=== PATIENT | female | born 2000 | race Caucasian/White ===

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

== ENCOUNTER → 2018-06-25 | Outpatient (CLI) | payer MEDICAID ==
[~2018-06-25] MED LIST changes: +FERR325T18 PO; +IBUP-1773 PO
--- NOTE | 2018-06-25 17:23 | Diagnostic Imaging Report ---
INDICATION: Second trimester anatomic survey. TECHNIQUE: Multiple real-time grayscale images were obtained over the gravid uterus. COMPARISON: None. FINDINGS: Single intrauterine in a cephalic presentation. Grade 1 fundal placenta. No subchorionic fluid collections. Amniotic fluid is within normal limits. heart rate 143 beats per minute. There is a four-chamber heart with normal outflow tracts. There is an echogenic focus in the left ventricle. Normal appearing kidneys, bladder, stomach, intracranial contents including the ventricles and posterior fossa, three-vessel cord, spine and cord insertion. Anatomic measurements correspond to a 20 week, 1 day gestation. general anatomy is female. Biometrical measurements are as follows: Biparietal 4.72 cm, age 20 weeks 2 days. Head circumference 17.16 cm, age 19 weeks 6 days. Abdominal circumference 15.05 cm, age 20 weeks 3 days. Femur length 3.13 cm, age 19 weeks 6 days. Sonographic estimate age: 20 weeks 1 days. Sonographic estimated date of delivery: 11/11/17. Estimated Weight: 326 gm (+/- 48 gm). LMP percentile: 8%. heart rate: 143 beats per minute. number: 1 of 1. IMPRESSION: Nonspecific echogenic focus in the left ventricle. anatomic survey is otherwise unremarkable. Dictated by: Dictated on workstation # [id number]
== END ==
LOC: RAD 13:03
PROVIDERS: ATTEND Obstetrics & Gynecology
DX: Z36.89 Encounter for other specified antenatal screening (principal); Z3A.20 20 weeks gestation of pregnancy
CPT/HCPCS: 76805

== ENCOUNTER 2018-10-05 11:45 | Inpatient (IN) | payer MEDICAID ==
[2018-10-05] VITALS (21 sets, daily range): BP systolic 94–124; BP diastolic 51–75
[~2018-10-05] VITALS: Ht 152.4 cm; Wt 58.5 kg
--- NOTE | 2018-10-05 11:45 | NUR ---
MATILDA LLANOS presented to unit via ambulation, accompanied by S.O., with c/o LABOR. MATILDA LLANOS weighed, gowned, voided, and to bed. EFHM and TOCO applied, VS taken. MATILDA LLANOS oriented to bed controls, call light, TV, heat, and A/C controls.
--- OUTSIDE RECORDS SUMMARY | 2018-10-05 11:57 | XMS REPORT ---
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 Name Role Phone MARCELO DOBBS Unavailable PROBLEMS Type Condition ICD9-CM Code AMV97-UH Code Onset Dates Condition Status SNOMED Code Problem Anxiety F41.9 Active 67078219 Problem Swelling of right hand M79.89 Active 146483840 Problem Hair loss L65.9 Active 11054945 Problem Family history of autoimmune disorder Z83.2 Active 612090320 ALLERGIES No Information ENCOUNTERS Encounter Location Date Diagnosis [facility] [address] [address] Aug, Anxiety F41.9 [facility] [address] [address] May, Fever, unspecified fever cause R50.9 ; Other viral agents as the cause of diseases classified elsewhere B97.89 and Acute upper respiratory infection, unspecified J06.9 [facility] [address] [address] Mar, Lump R22.9 [facility] [address] [id number] November, Chest wall pain R07.89 and Community acquired pneumonia J18.9 [facility] [address] [address] November, Viral upper respiratory tract infection J06.9 ; Encounter for immunization Z23 ; Hives L50.9 and Insect bites, initial encounter W57.XXXA [facility] [id number] [place] [id number] Sep, Encounter for dental examination and cleaning without abnormal findings Z01.20 [place] [id number] [place] [address] Aug, Upper respiratory tract infection, unspecified type 465.9 and Allergic rhinitis J30.9 [facility] [id number] [place] [address] Aug, Rash R21 [place] [id number] [place] [address] Aug, Hair loss L65.9 ; Raynauds phenomenon without gangrene I73.00 ; Family history of autoimmune disorder Z83.2 and Swelling of right hand M79.89 [place] [id number] [place] [address] 09 Aug, 2015 Raynauds phenomenon without gangrene I73.00 ; Hair loss L65.9 ; Family history of autoimmune disorder Z83.2 and Swelling of right hand M79.89 [place] [id number] [place] [address] Aug, Raynauds phenomenon without gangrene I73.00 ; Hair loss L65.9 ; Family history of autoimmune disorder Z83.2 and Swelling of right hand M79.89 [place] [id number] [place] [address] Aug, [place] [id number] [place] [address] Dec, [place] [id number] [place] [address] Dec, [place] [id number] [place] [address] Dec, Constipation - functional 564.09 and Hair loss 704.00 [place] [id number] [place] [address] Dec, [place] [id number] [place] [address] 14 Oct, 2014 [facility] [place] [facility] [address] [id number] [place] [address] Oct, [facility] [place] [facility] [address] [id number] [place] [address] Aug, [facility] [place] [facility] [address] [facility] [id number] [place] [address] Aug, [facility] [place] [facility] [address] [id number] [place] [address] Jul, [facility] [place] [facility] [address] [id number] [place] [address] Jul, [facility] [place] [facility] [address] [facility] [id number] [place] [address] Jun, [facility] [place] [facility] [address] [facility] [id number] [place] [address] Jun, [facility] [place] [facility] [address] [facility] [id number] [place] [address] Apr, [facility] [place] [facility] [address] [facility] [id number] [place] [address] Apr, [facility] [place] [facility] [address] [facility] [id number] [place] [address] Mar, [facility] [place] [facility] [address] [facility] [id number] [place] [address] Mar, [facility] [place] [facility] [address] [id number] [address] Feb, [facility] [place] [facility] [address] [id number] [place] [address] Feb, [facility] [place] [facility] [address] [facility] [id number] [place] [address] Feb, [facility] [place] [facility] [address] [facility] [id number] [place] [address] Jul, [facility] [place] [facility] [address] [id number] [place] [address] 15 Jul, 2013 [facility] [address] [id number] [place] [address] Feb, [facility] [place] [facility] [address] [id number] [place] [address] November, [facility] [address] [id number] [place] [address] November, [facility] [place] [facility] [address] [id number] [place] [address] November, [facility] [address] [id number] [place] [address] Aug, [facility] [address] [id number] [place] [address] Jul, [facility] [address] [id number] [place] [address] Jul, [facility] [address] [id number] [place] [address] Jul, [facility] [address] [id number] [place] [address] Jul, [facility] [address] [id number] [place] [address] Oct, [facility] [address] [id number] [place] [address] 24 Sep, 2011 [facility] [place] [facility] [address] [id number] [place] [address] 20 Sep, 2011 [facility] [place] [facility] [address] [id number] [place] [address] 13 Sep, 2011 [facility] [place] [facility] [address] [id number] [place] [address] 07 Sep, 2011 [facility] [place] [facility] [address] [id number] [place] [address] Jul, [facility] [address] [facility] [id number] [place] [address] Jul, [facility] [address] [facility] [id number], [place] [address] Jul, [facility] [address] [facility] [id number] [place] [address] Jul, IMMUNIZATIONS No Known Immunizations SOCIAL HISTORY Never Assessed REASON FOR VISIT [place] PLAN OF CARE Activity Details Follow Up prn Reason:If requested by provider or patient VITAL SIGNS MEDICATIONS Unknown Medications RESULTS No Results PROCEDURES Procedure Date Ordered Result Body Site Psychotherapy, patient &/family, 30 minutes, new patient Sep 01, 2017 INSTRUCTIONS MEDICATIONS ADMINISTERED No Known Medications MEDICAL (GENERAL) HISTORY Type Description Date Medical History Depressive disorder, not elsewhere classified Medical History [facility] History [facility]
--- OUTSIDE RECORDS SUMMARY | 2018-10-05 11:58 | XMS REPORT | Continuity of Care Document ---
Author Author [facility] Address Unknown Phone Unavailable Allergies Active Description Code Type Severity Reaction Onset Reported/Identified Relationship to Patient Clinical Status Yes No Known Drug Allergies [id number] Drug Allergy Unknown N/A 11/14/2011 Medications There is no data. Problems Date Dx Coded Attending Type Code Diagnosis Diagnosed By 04/26/2010 V03.89 MENINGOCOCCAL VACCINE 04/26/2010 V04.0 IPV, POLIOMYELITIS 04/26/2010 V05.4 VARICELLA, CHICKENPOX 04/26/2010 V06.5 DT, TETANUS- DIPHTHERIA [Td] ,TDAP 04/26/2010 MERRICKE RING BARKER OPERATOR, JUAN F A V03.89 MENINGOCOCCAL VACCINE 04/26/2010 RAJOTTE RING BARKER OPERATOR, JUAN F A V04.0 IPV, POLIOMYELITIS 04/26/2010 RAJOTTE RING BARKER OPERATOR, JUAN F A V05.4 VARICELLA, CHICKENPOX 04/26/2010 RAJOTTE RING BARKER OPERATOR, JUAN F A V06.5 DT, TETANUS-DIPHTHERIA [Td] ,TDAP 04/26/2010 V03.89 MENINGOCOCCAL VACCINE 04/26/2010 V04.0 IPV, POLIOMYELITIS 04/26/2010 V05.4 VARICELLA, CHICKENPOX 04/26/2010 V06.5 DT, TETANUS- DIPHTHERIA [Td] ,TDAP 04/26/2010 V03.89 MENINGOCOCCAL VACCINE 04/26/2010 V04.0 IPV, POLIOMYELITIS 04/26/2010 V05.4 VARICELLA, CHICKENPOX 04/26/2010 V06.5 DT, TETANUS- DIPHTHERIA [Td] ,TDAP 04/26/2010 V03.89 MENINGOCOCCAL VACCINE 04/26/2010 V04.0 IPV, POLIOMYELITIS 04/26/2010 V05.4 VARICELLA, CHICKENPOX 04/26/2010 V06.5 DT, TETANUS- DIPHTHERIA [Td] ,TDAP 04/26/2010 V03.89 MENINGOCOCCAL VACCINE 04/26/2010 V04.0 IPV, POLIOMYELITIS 04/26/2010 V05.4 VARICELLA, CHICKENPOX 04/26/2010 V06.5 DT, TETANUS- DIPHTHERIA [Td] ,TDAP 04/26/2010 RAJOTTE RING BARKER OPERATOR, JUAN F A V03.89 MENINGOCOCCAL VACCINE 04/26/2010 RAJOTTE RING BARKER OPERATOR, JUAN F A V04.0 IPV, POLIOMYELITIS 04/26/2010 RAJOTTE RING BARKER OPERATOR, JUAN F A V05.4 VARICELLA, CHICKENPOX 04/26/2010 RAJOTTE RING BARKER OPERATOR, JUAN F A V06.5 DT, TETANUS-DIPHTHERIA [Td] ,TDAP 04/26/2010 MADL RING BARKER OPERATOR, JASON L V03.89 MENINGOCOCCAL VACCINE 04/26/2010 MADL RING BARKER OPERATOR, JASON L V04.0 IPV, POLIOMYELITIS 04/26/2010 MADL RING BARKER OPERATOR, JASON L V05.4 VARICELLA, CHICKENPOX 04/26/2010 MADL RING BARKER OPERATOR, JASON L V06.5 DT, TETANUS-DIPHTHERIA [Td] ,TDAP 04/26/2010 DEISI RING BARKER OPERATOR, JENNY R V03.89 MENINGOCOCCAL VACCINE 04/26/2010 DEISI RING BARKER OPERATOR, JENNY R V04.0 IPV, POLIOMYELITIS 04/26/2010 DEISI RING BARKER OPERATOR, JENNY R V05.4 VARICELLA, CHICKENPOX 04/26/2010 DEISI RING BARKER OPERATOR, JENNY R V06.5 DT, TETANUS-DIPHTHERIA [Td] ,TDAP 04/26/2010 RAJOTTE RING BARKER OPERATOR, JUAN F A V03.89 MENINGOCOCCAL VACCINE 04/26/2010 RAJOTTE RING BARKER OPERATOR, JUAN F A V04.0 IPV, POLIOMYELITIS 04/26/2010 RAJOTTE RING BARKER OPERATOR, JUAN F A V05.4 VARICELLA, CHICKENPOX 04/26/2010 RAJOTTE RING BARKER OPERATOR, JUAN F A V06.5 DT, TETANUS-DIPHTHERIA [Td] ,TDAP 04/26/2010 GILLILAND DO, WILIAN K V03.89 MENINGOCOCCAL VACCINE 04/26/2010 GILLILAND DO, WILIAN K V04.0 IPV, POLIOMYELITIS 04/26/2010 GILLILAND DO, WILIAN K V05.4 VARICELLA, CHICKENPOX 04/26/2010 GILLILAND DO, WILIAN K V06.5 DT, TETANUS-DIPHTHERIA [Td] ,TDAP 08/10/2010 381.81 EUSTACHIAN TUBE DYSFUNCTION 08/10/2010 388.70 EAR ACHE 08/10/2010 JUAN F GUARDADO APRN A 381.81 EUSTACHIAN TUBE DYSFUNCTION 08/10/2010 JUAN F GUARDADO APRN A 388.70 EAR ACHE 08/10/2010 381.81 EUSTACHIAN TUBE DYSFUNCTION 08/10/2010 388.70 EAR ACHE 08/10/2010 381.81 EUSTACHIAN TUBE DYSFUNCTION 08/10/2010 388.70 EAR ACHE 08/10/2010 381.81 EUSTACHIAN TUBE DYSFUNCTION 08/10/2010 388.70 EAR ACHE 08/10/2010 381.81 EUSTACHIAN TUBE DYSFUNCTION 08/10/2010 388.70 EAR ACHE 08/10/2010 JUAN F GUARDADO APRN A 381.81 EUSTACHIAN TUBE DYSFUNCTION 08/10/2010 JUAN F GUARDADO APRN A 388.70 EAR ACHE 08/10/2010 RICHY DENNIS APRNWNYA L 381.81 EUSTACHIAN TUBE DYSFUNCTION 08/10/2010 JEANNIE PETERS, JASON L 388.70 EAR ACHE 08/10/2010 DEISI PETERS, JENNY R 381.81 EUSTACHIAN TUBE DYSFUNCTION 08/10/2010 DEISI PETERS JENNY R 388.70 EAR ACHE 08/10/2010 JUAN F GUARDADO APRN A 381.81 EUSTACHIAN TUBE DYSFUNCTION 08/10/2010 SPENCER GUARDADO APRNYL A 388.70 EAR ACHE 08/10/2010 WILIAN GILLILAND DO 381.81 EUSTACHIAN TUBE DYSFUNCTION 08/10/2010 WILIAN GILLILAND DO 388.70 EAR ACHE 07/27/2011 V04.89 GARDASIL (HPV ) DX 07/27/2011 V20.2 WELL CHILD 07/27/2011 JUAN F GUARDADO APRN V04.89 GARDASIL (HPV) DX 07/27/2011 JUAN F GUARDADO APRN V20.2 WELL CHILD 07/27/2011 V04.89 GARDASIL (HPV ) DX 07/27/2011 V20.2 WELL CHILD 07/27/2011 V04.89 GARDASIL (HPV ) DX 07/27/2011 V20.2 WELL CHILD 07/27/2011 V04.89 GARDASIL (HPV ) DX 07/27/2011 V20.2 WELL CHILD 07/27/2011 V04.89 GARDASIL (HPV ) DX 07/27/2011 V20.2 WELL CHILD 07/27/2011 JUAN F GUARDADO APRN A V04.89 GARDASIL (HPV) DX 07/27/2011 JUAN F GUARDADO APRN A V20.2 WELL CHILD 07/27/2011 MADL RING BARKER OPERATOR, JASON L V04.89 GARDASIL (HPV) DX 07/27/2011 MADL RING BARKER OPERATOR, JASON L V20.2 WELL CHILD 07/27/2011 DEISI RING BARKER OPERATOR, JENNY R V04.89 GARDASIL (HPV) DX 07/27/2011 DEISI RING BARKER OPERATOR, JENNY R V20.2 WELL CHILD 07/27/2011 JUAN F GUARDADO APRN A V04.89 GARDASIL (HPV) DX 07/27/2011 JUAN F GUARDADO APRN A V20.2 WELL CHILD 07/27/2011 GILLILAND DOTELLOA K V04.89 GARDASIL (HPV) DX 07/27/2011 [place] DO WILIAN K V20.2 WELL CHILD 08/09/2011 780.79 MALAISE AND FATIGUE 08/09/2011 784.0 HEADACHE 08/09/2011 785.6 LYMPH NODES ENLARGEMENT 08/09/2011 JUAN F GUARDADO APRN 780.79 MALAISE AND FATIGUE 08/09/2011 JUAN F GUARDADO APRN 784.0 HEADACHE 08/09/2011 JUAN F GUARDADO APRN A 785.6 LYMPH NODES ENLARGEMENT 08/09/2011 780.79 MALAISE AND FATIGUE 08/09/2011 784.0 HEADACHE 08/09/2011 785.6 LYMPH NODES ENLARGEMENT 08/09/2011 780.79 MALAISE AND FATIGUE 08/09/2011 784.0 HEADACHE 08/09/2011 785.6 LYMPH NODES ENLARGEMENT 08/09/2011 780.79 MALAISE AND FATIGUE 08/09/2011 784.0 HEADACHE 08/09/2011 785.6 LYMPH NODES ENLARGEMENT 08/09/2011 780.79 MALAISE AND FATIGUE 08/09/2011 784.0 HEADACHE 08/09/2011 785.6 LYMPH NODES ENLARGEMENT 08/09/2011 JAVIEROTTE RING BARKER OPERATOR, JUAN F A 780.79 MALAISE AND FATIGUE 08/09/2011 RAJOTTE RING BARKER OPERATOR, JUAN F A 784.0 HEADACHE 08/09/2011 JAVIEROTTE RING BARKER OPERATOR, JUAN F A 785.6 LYMPH NODES ENLARGEMENT 08/09/2011 MADL RING BARKER OPERATOR, JASON L 780.79 MALAISE AND FATIGUE 08/09/2011 MADL RING BARKER OPERATOR, JASON L 784.0 HEADACHE 08/09/2011 MADL RING BARKER OPERATOR, JASON L 785.6 LYMPH NODES ENLARGEMENT 08/09/2011 DEISI RING BARKER OPERATOR, JENNY R 780.79 MALAISE AND FATIGUE 08/09/2011 DEISI RING BARKER OPERATOR, JENNY R 784.0 HEADACHE 08/09/2011 DEISI RING BARKER OPERATOR, JENNY R 785.6 LYMPH NODES ENLARGEMENT 08/09/2011 MERRICKE RING BARKER OPERATOR, JUAN F A 780.79 MALAISE AND FATIGUE 08/09/2011 DEBBY RING BARKER OPERATOR, JUAN F A 784.0 HEADACHE 08/09/2011 DEBBY RING BARKER OPERATOR, JUAN F A 785.6 LYMPH NODES ENLARGEMENT 08/09/2011 GILLILAND DO, WILIAN K 780.79 MALAISE AND FATIGUE 08/09/2011 GILLILAND DO, WILIAN K 784.0 HEADACHE 08/09/2011 GILLILAND DO, WILIAN K 785.6 LYMPH NODES ENLARGEMENT 09/28/2011 625.9 PELVIC PAIN 09/28/2011 626.8 DUB 09/28/2011 V25.01 CONTRACEPTION - ORAL CONTRACEPTION 09/28/2011 V25.09 CONTRACEPTIVE COUNSELING - GENERAL 09/28/2011 DEBBY FULLERN, JUAN F A 625.9 PELVIC PAIN 09/28/2011 DEBBY RING BARKER OPERATOR, JUAN F A 626.8 DUB 09/28/2011 DEBBY RING BARKER OPERATOR, JUAN F A V25.01 CONTRACEPTION - ORAL CONTRACEPTION 09/28/2011 DEBBY RING BARKER OPERATOR, JUAN F A V25.09 CONTRACEPTIVE COUNSELING - [...] V25.09 CONTRACEPTIVE COUNSELING - GENERAL 09/28/2011 DEBBY RING BARKER OPERATOR, JUAN F A 625.9 PELVIC PAIN 09/28/2011 MERRICKE RING BARKER OPERATOR, JUAN F A 626.8 DUB 09/28/2011 MERRICKE RING BARKER OPERATOR, JUAN F A V25.01 CONTRACEPTION - ORAL CONTRACEPTION 09/28/2011 MERRICKE RING BARKER OPERATOR, JUAN F A V25.09 CONTRACEPTIVE COUNSELING - GENERAL 09/28/2011 MADL RING BARKER OPERATOR, JASON L 625.9 PELVIC PAIN 09/28/2011 MADL RING BARKER OPERATOR, JASON L 626.8 DUB 09/28/2011 MADL RING BARKER OPERATOR, JASON L V25.01 CONTRACEPTION - ORAL CONTRACEPTION 09/28/2011 MADL RING BARKER OPERATOR, JASON L V25.09 CONTRACEPTIVE COUNSELING - GENERAL 09/28/2011 DEISI RING BARKER OPERATOR, JENNY R 625.9 PELVIC PAIN 09/28/2011 DEISI RING BARKER OPERATOR, JENNY R 626.8 DUB 09/28/2011 DEISI RING BARKER OPERATOR, JENNY R V25.01 CONTRACEPTION - ORAL CONTRACEPTION 09/28/2011 DEISI RING BARKER OPERATOR, JENNY R V25.09 CONTRACEPTIVE COUNSELING - GENERAL 09/28/2011 DEBBY RING BARKER OPERATOR, JUAN F A 625.9 PELVIC PAIN 09/28/2011 MERRICKE RING BARKER OPERATOR, JUAN F A 626.8 DUB 09/28/2011 MERRICKE RING BARKER OPERATOR, JUAN F A V25.01 CONTRACEPTION - ORAL CONTRACEPTION 09/28/2011 MERRICKE RING BARKER OPERATOR, JUAN F A V25.09 CONTRACEPTIVE COUNSELING - [...] 382.00 OTITIS MEDIA ACUTE SUPPURATIVE 11/17/2011 DEBBY PETESR JUAN F A 465.9 UPPER RESPIRATORY INFECTION 11/17/2011 DEBBY PETERS JUAN F A 706.1 ACNE 11/17/2011 MADMichael RING BARKER OPERATOR, JASON L 382.00 OTITIS MEDIA ACUTE SUPPURATIVE 11/17/2011 MADL RING BARKER OPERATOR, JASON L 465.9 UPPER RESPIRATORY INFECTION 11/17/2011 MADL RING BARKER OPERATOR, JASON L 706.1 ACNE 11/17/2011 DEISI RING BARKER OPERATOR, JENNY R 382.00 OTITIS MEDIA ACUTE SUPPURATIVE 11/17/2011 DEISI RING BARKER OPERATOR, JENNY R 465.9 UPPER RESPIRATORY INFECTION 11/17/2011 DEISI RING BARKER OPERATOR, JENNY R 706.1 ACNE 11/17/2011 DEBBY PETERS JUAN F A 382.00 OTITIS MEDIA ACUTE SUPPURATIVE 11/17/2011 DEBBY PETERS JUAN F A 465.9 UPPER RESPIRATORY INFECTION 11/17/2011 RAJOTTE RING BARKER OPERATOR, JUAN F A 706.1 ACNE 11/17/2011 WILIAN GILLILAND DO K 382.00 OTITIS MEDIA ACUTE SUPPURATIVE 11/17/2011 WILIAN GILLILAND DO K 465.9 UPPER RESPIRATORY INFECTION 11/17/2011 TELLO GILLILAND DOA K 706.1 ACNE 11/22/2011 Ot 623.8 NONINFLAM DIS VAGINA NEC 11/22/2011 Ot 626.8 MENSTRUAL DISORDER NEC 08/10/2012 461.0 SINUSITIS, ACUTE MAXILLARY 08/10/2012 787.02 NAUSEA ALONE 08/10/2012 MERRICKE RING BARKER OPERATOR, JUAN F A 461.0 SINUSITIS, ACUTE MAXILLARY 08/10/2012 MERRICKE RING BARKER OPERATOR, JUAN F A 787.02 NAUSEA ALONE 08/10/2012 461.0 SINUSITIS, ACUTE MAXILLARY 08/10/2012 787.02 NAUSEA ALONE 08/10/2012 461.0 SINUSITIS, ACUTE MAXILLARY 08/10/2012 787.02 NAUSEA ALONE 08/10/2012 461.0 SINUSITIS, ACUTE MAXILLARY 08/10/2012 787.02 NAUSEA ALONE 08/10/2012 461.0 SINUSITIS, ACUTE MAXILLARY 08/10/2012 787.02 NAUSEA ALONE 08/10/2012 RAJHUEYE RING BARKER OPERATOR, JUAN F A 461.0 SINUSITIS, ACUTE MAXILLARY 08/10/2012 RAJHUEYE RING BARKER OPERATOR, JUAN F A 787.02 NAUSEA ALONE 08/10/2012 MADL RING BARKER OPERATOR, JASON L 461.0 SINUSITIS, ACUTE MAXILLARY 08/10/2012 MADL RING BARKER OPERATOR, JASON L 787.02 NAUSEA ALONE 08/10/2012 DEISI RING BARKER OPERATOR, JENNY R 461.0 SINUSITIS, ACUTE MAXILLARY 08/10/2012 DEISI RING BARKER OPERATOR, JENNY R 787.02 NAUSEA ALONE 08/10/2012 MERRICKE RING BARKER OPERATOR, JUAN F A 461.0 SINUSITIS, ACUTE MAXILLARY 08/10/2012 DEBBY RING BARKER OPERATOR, JUAN F A 787.02 NAUSEA ALONE 08/10/2012 TELLO GILLILAND DOA K 461.0 SINUSITIS, ACUTE MAXILLARY 08/10/2012 TELLO GILLILAND DOA K 787.02 NAUSEA ALONE 11/27/2012 311 DEPRESSIVE DISORDER NOS 11/27/2012 311 DEPRESSIVE DISORDER NOS 11/27/2012 311 DEPRESSIVE DISORDER NOS 11/27/2012 DEBBY PETERS JUAN F A 311 DEPRESSIVE DISORDER NOS 11/27/2012 JASON DENNIS APRN L 311 DEPRESSIVE DISORDER NOS 11/27/2012 DEISI PETERS, JENNY R 311 DEPRESSIVE DISORDER NOS 11/27/2012 DEBBY PETERS, JUAN F A 311 DEPRESSIVE DISORDER NOS 11/27/2012 TELLO GILLILAND DOA K 311 DEPRESSIVE DISORDER NOS 05/14/2013 CHRISTIAN MONTERO RING BARKER OPERATOR Ot 890.0 OPEN WOUND OF HIP/THIGH 05/14/2013 CHRISTIAN MONTERO RING BARKER OPERATOR Ot E000.8 OTHER EXTERNAL CAUSE STATUS 05/14/2013 CHRISTIAN MONTERO RING BARKER OPERATOR Ot E849.0 ACCIDENT IN HOME 05/14/2013 CHRISTIAN MONTERO RING BARKER OPERATOR Ot E888.0 FALL STRIKING SHARP OBJECT 05/24/2013 [...] DEISI PETERS JENNY R 786.2 COUGH 03/19/2014 SPENCER GUARDADO APRNYL A 786.2 COUGH 03/19/2014 TELLO GILLILAND DOA K 786.2 COUGH 05/22/2014 DEISI PETERS JENNY [...] Ot L02.411 CUTANEOUS ABSCESS OF RIGHT AXILLA 01/19/2017 ANSHUL SUAREZ, NATACHA Abreu Ot O99.89 OT DISEASES AND CONDITIONS COMPL PREG/C 01/19/2017 NATACHA LANDERS MD Ot R10.2 PELVIC AND PERINEAL PAIN 01/19/2017 NATACHA LANDERS MD Ot Z3A.14 14 WEEKS GESTATION OF 01/20/2017 NATACHA LANDERS MD Ot O99.89 OT DISEASES AND CONDITIONS COMPL PREG/C 01/20/2017 NATACHA LANDERS MD Ot R10.2 PELVIC AND PERINEAL PAIN 01/20/2017 NATACHA LANDERS MD Ot Z3A.14 14 WEEKS GESTATION OF 02/23/2017 HEMA ECHOLS DO Ot Z36 ENCOUNTER FOR SCREENING OF MOT 02/23/2017 HEMA ECHOLS DO Ot Z3A.18 18 WEEKS GESTATION OF 03/01/2017 HEMA ECHOLS DO Ot Z36 ENCOUNTER FOR SCREENING OF MOT 03/01/2017 HEMA ECHOLS DO Ot Z3A.18 18 WEEKS GESTATION OF 03/07/2017 HEMA ECHOLS DO Ot Z36 ENCOUNTER FOR SCREENING OF MOT 03/07/2017 HEMA ECHOLS DO Ot Z3A.18 18 WEEKS GESTATION OF 04/19/2017 MAYCO CAIN MD, Ot B37.3 CANDIDIASIS OF VULVA AND VAGINA 04/19/2017 MAYCO CAIN MD, Ot O26.892 OT RELATED CONDITIONS, SECOND 04/19/2017 MAYCO CAIN MD, Ot O47.02 FALSE LABOR BEFORE 37 COMPLETED WEEKS OF 04/19/2017 MAYCO CAIN MD, Ot Z3A.27 27 WEEKS GESTATION OF 07/02/2017 HEMA ECHOLS DO Ot Z36 ENCOUNTER FOR SCREENING OF MOT 07/02/2017 HEMA ECHOLS DO Ot Z3A.18 18 WEEKS GESTATION OF 07/02/2017 HEMA ECHLOS DO Ot O36.5930 MATERN CARE FOR OTH OR SUSP POOR FETL GR 07/02/2017 HEMA ECHOLS DO Ot Z3A.36 36 WEEKS GESTATION OF 07/02/2017 HEMA ECHOLS DO Ot A60.9 ANOGENITAL HERPESVIRAL INFECTION, UNSPEC 07/02/2017 HEMA ECHOLS DO Ot D64.9 ANEMIA, UNSPECIFIED 07/02/2017 HEMA ECHOLS DO Ot F17.210 NICOTINE DEPENDENCE, CIGARETTES, UNCOMPL 07/02/2017 HEMA ECHOLS DO Ot F32.9 MAJOR DEPRESSIVE DISORDER, SINGLE EPISOD 07/02/2017 HEMA ECHOLS DO Ot F41.9 ANXIETY DISORDER, UNSPECIFIED 07/02/2017 HEMA ECHOLS DO Ot O26.893 OTH RELATED CONDITIONS, THIRD 07/02/2017 HEMA ECHOLS DO Ot O36.5930 MATERN CARE FOR OTH OR SUSP POOR FETL GR 07/02/2017 HEMA ECHOLS DO Ot O69.81X0 LABOR AND DEL COMP BY CORD AROUND NECK, 07/02/2017 HEMA ECHOLS DO Ot O98.313 OTH INFECT W SEXL MODE OF TRANSMISS COMP 07/02/2017 HEMA ECHOLS DO Ot O98.513 OTHER VIRAL DISEASES COMPLICATING PREGNA 07/02/2017 HEMA ECHOLS DO Ot O99.03 ANEMIA COMPLICATING THE PUERPERIUM 07/02/2017 HEMA ECHOLS DO Ot O99.333 SMOKING (TOBACCO) COMPLICATING 07/02/2017 HEMA ECHOLS DO Ot O99.343 OTH MENTAL DISORDERS COMPLICATING PREGNA 07/02/2017 HEMA ECHOLS DO Ot Z23 ENCOUNTER FOR IMMUNIZATION 07/02/2017 HEMA ECHOLS DO Ot Z37.0 SINGLE LIVE 07/02/2017 HEMA ECHOLS DO, Ot Z3A.37 37 WEEKS GESTATION OF 01/17/2018 ECHOLS DO, HEMA C Ot Z36 ENCOUNTER FOR SCREENING OF MOT 01/17/2018 LUIZA ECHOLS DOA Bayron Ot Z3A.18 18 WEEKS GESTATION OF 01/17/2018 HEMA ECHOLS DO Ot O36.5930 MATERN CARE FOR OTH OR SUSP POOR FETL GR 01/17/2018 ONESIMO NICOLE HEMA C Ot Z3A.36 36 WEEKS GESTATION OF 06/25/2018 ONESIMO NICOLE HEMA C Ot Z36 ENCOUNTER FOR SCREENING OF MOT 06/25/2018 HEMA ECHOLS DO Ot Z3A.18 18 WEEKS GESTATION OF 06/25/2018 HEMA ECHOLS DO Ot O36.5930 MATERN CARE FOR OTH OR SUSP POOR FETL GR 06/25/2018 HEMA ECHOLS DO Ot Z3A.36 36 WEEKS GESTATION OF 06/26/2018 ONESIMO NICOLE HEMA C Ot Z36.89 ENCOUNTER FOR OTHER SPECIFIED 06/26/2018 NOESIMO NICOLE HEMA C Ot Z3A.20 20 WEEKS GESTATION OF 07/12/2018 ONESIMO NICOLE HEMA C Ot Z36.89 ENCOUNTER FOR OTHER SPECIFIED 07/12/2018 ONESIMO NICOLE HEMA C Ot Z3A.20 20 WEEKS GESTATION OF 10/05/2018 ONESIMO NICOLE HEMA C Ot Z36 ENCOUNTER FOR SCREENING OF MOT 10/05/2018 HEMA ECHOLS DO C Ot Z3A.18 18 WEEKS GESTATION OF 10/05/2018 ONESIMO NICOLE HEMA Verma Ot O36.5930 MATERN CARE FOR OTH OR SUSP POOR FETL GR 10/05/2018 LUIZA ECHOLS DOA C Ot Z3A.36 36 WEEKS GESTATION OF 10/05/2018 ONESIMO NICOLE HEMA C Ot Z36.89 ENCOUNTER FOR OTHER SPECIFIED 10/05/2018 ONESIMO NICOLE HEMA C Ot Z3A.20 20 WEEKS GESTATION OF Procedures Code Description [place] [address] Audiogram (Screening) 08/23/2012 92501 Screening Test Of Visual Acuity, Quantitative, Bilateral 08/23/2012 89646 PSYCH DIAGNOSTIC EVALUATION 11/29/2012 28012 PSYTX PT&/FAMILY 45 MINUTES 12/12/2012 41049 PURE TONE HEARING TEST AIR 03/21/2013 28403 VISUAL ACUITY SCREEN 03/21/2013 89788 ROUTINE VENIPUNCTURE 03/19/2014 53850 MYCOPLASMA ANTIBODY 03/20/2014 [id number] DELIVERY OF PRODUCTS OF CONCEPTION, EXTE 06/30/2017 Results Test Result Range Gram stain microscopy - 06/06/16 14:15 GRAM STAIN RESULT COCCI NRG Bacteria identification in wound by culture - 06/06/16 14:15 Bacteria identification in wound by culture [id number] NRG QUANTITY OF GROWTH Scant Growth NRG Complete urinalysis with reflex to culture - 01/19/17 23:06 Urine color determination YELLOW NRG Urine clarity determination CLEAR NRG Urine pH measurement by test strip 7 5-9 Specific gravity of urine by test strip 1.005 1.016- 1.022 Urine protein assay by test strip, semi-quantitative NEGATIVE NEGATIVE Urine glucose detection by automated test strip NEGATIVE NEGATIVE Erythrocytes detection in urine sediment by light microscopy NEGATIVE NEGATIVE Urine ketones detection by automated test strip NEGATIVE NEGATIVE Urine nitrite detection by test strip NEGATIVE NEGATIVE Urine total bilirubin detection by test strip NEGATIVE NEGATIVE Urine urobilinogen measurement by automated test strip (mass/volume) NORMAL NORMAL Urine leukocyte esterase detection by dipstick 1+ NEGATIVE Automated urine sediment erythrocyte count by microscopy (number/high power field) NONE NRG Automated urine sediment leukocyte count by microscopy (number/high power field ) [HPF] NRG Bacteria detection in urine sediment by light microscopy NONE NRG Squamous epithelial cells detection in urine sediment by light microscopy 2-5 NRG Crystals detection in urine sediment by light microscopy PRESENT NRG Casts detection in urine sediment by light microscopy NONE NRG Mucus detection in urine sediment by light microscopy NEGATIVE NRG Complete urinalysis with reflex to culture NO NRG Amorphous sediment detection in urine sediment by light microscopy FEW NERIS URATES NRG Complete urinalysis with reflex to culture - 04/19/17 13:48 Urine color determination YELLOW NRG Urine clarity determination SLIGHTLY CLOUDY NRG Urine pH measurement by test strip 5 5-9 Specific gravity of urine by test strip 1.020 1.016- 1.022 Urine protein assay by test strip, semi-quantitative 1+ NEGATIVE Urine glucose detection by automated test strip NEGATIVE NEGATIVE Erythrocytes detection in urine sediment by light microscopy NEGATIVE NEGATIVE Urine ketones detection by automated test strip NEGATIVE NEGATIVE Urine nitrite detection by test strip NEGATIVE NEGATIVE Urine total bilirubin detection by test strip NEGATIVE NEGATIVE Urine urobilinogen measurement by automated test strip (mass/volume) NORMAL NORMAL Urine leukocyte esterase detection by dipstick 2+ NEGATIVE Automated urine sediment erythrocyte count by microscopy (number/high power field) NONE NRG Automated urine sediment leukocyte count by microscopy (number/high power field ) [HPF] NRG Bacteria detection in urine sediment by light microscopy MODERATE NRG Squamous epithelial cells detection in urine sediment by light microscopy >50 NRG Crystals detection in urine sediment by light microscopy NONE NRG Casts detection in urine sediment by light microscopy NONE NRG Mucus detection in urine sediment by light microscopy LARGE NRG Complete urinalysis with reflex to culture YES NRG Bacterial urine culture - 04/19/17 13:48 URINE CULTURE RESULTS <10,000/ML NRG Microscopic examination by wet preparation - 04/19/17 14:38 WET PREP RESULTS NO TRICHOMONAS OBSERVED NRG Complete urinalysis with reflex to culture - 06/29/17 20:00 Urine color determination YELLOW NRG Urine clarity determination CLEAR NRG Urine pH measurement by test strip 6 5-9 Specific gravity of urine by test strip 1.020 1.016- 1.022 Urine protein assay by test strip, semi-quantitative NEGATIVE NEGATIVE Urine glucose detection by automated test strip NEGATIVE NEGATIVE Erythrocytes detection in urine sediment by light microscopy NEGATIVE NEGATIVE Urine ketones detection by automated test strip NEGATIVE NEGATIVE Urine nitrite detection by test strip NEGATIVE NEGATIVE Urine total bilirubin detection by test strip NEGATIVE NEGATIVE Urine urobilinogen measurement by automated test strip (mass/volume) 1 mg/dL NORMAL Urine leukocyte esterase detection by dipstick 1+ NEGATIVE Automated urine sediment erythrocyte count by microscopy (number/high power field) NONE NRG Automated urine sediment leukocyte count by microscopy (number/high power field ) [HPF] NRG Bacteria detection in urine sediment by light microscopy MODERATE NRG Squamous epithelial cells detection in urine sediment by light microscopy 5-10 NRG Crystals detection in urine sediment by light microscopy NONE NRG Casts detection in urine sediment by light microscopy NONE NRG Mucus detection in urine sediment by light microscopy MODERATE NRG Complete urinalysis with reflex to culture NO NRG Bacterial urine culture - 06/29/17 20:00 URINE CULTURE RESULTS <10,000/ML NRG Complete blood count (CBC) with automated white blood cell (WBC) differential - 06/29/17 20:40 Blood leukocytes automated count (number/volume) 11.5 10*3/uL 4.3-11.0 Blood erythrocytes automated count (number/volume) 4.05 10*6/uL 4.35-5.85 Venous blood hemoglobin measurement (mass/volume) 12.5 g/dL 11.5-16.0 Blood hematocrit (volume fraction) 36 % 35-52 Automated erythrocyte mean corpuscular volume 90 [foz_us] 80-99 Automated erythrocyte mean corpuscular hemoglobin (mass per erythrocyte) 31 pg 25-34 Automated erythrocyte mean corpuscular hemoglobin concentration measurement ( mass/volume) 34 g/dL 32-36 Automated erythrocyte distribution width ratio 12.8 % 10.0-14.5 Automated blood platelet count (count/volume) 182 10*3/uL 130-400 Automated blood platelet mean volume measurement 13.6 [foz_us] 7.4-10.4 Automated blood neutrophils/100 leukocytes 65 % 42-75 Automated blood lymphocytes/100 leukocytes 24 % 12-44 Blood monocytes/100 leukocytes 9 % 0-12 Automated blood eosinophils/100 leukocytes 2 % 0-10 Automated blood basophils/100 leukocytes 1 % 0-10 Blood neutrophils automated count (number/volume) 7.4 10*3 1.8-7.8 Blood lymphocytes automated count (number/volume) 2.8 10*3 1.0-4.0 Blood monocytes automated count (number/volume) 1.1 10*3 0.0-1.0 Automated eosinophil count 0.2 10*3/uL 0.0-0.3 Automated blood basophil count (count/volume) 0.1 10*3/uL 0.0-0.1 Blood type T Indirect antibody screen panel - 06/29/17 20:40 ABO+Rh group OP NRG Transfusion band number [id number] NR Blood group antibody screen NEGATIVE NR Complete blood count (CBC) with automated white blood cell (WBC) differential - 07/01/17 07:15 Blood leukocytes automated count (number/volume) 13.3 10*3/uL 4.3-11.0 Blood erythrocytes automated count (number/volume) 3.31 10*6/uL 4.35-5.85 Venous blood hemoglobin measurement (mass/volume) 10.1 g/dL 11.5-16.0 Blood hematocrit (volume fraction) 30 % 35-52 Automated erythrocyte mean corpuscular volume 91 [foz_us] 80-99 Automated erythrocyte mean corpuscular hemoglobin (mass per erythrocyte) 31 pg 25-34 Automated erythrocyte mean corpuscular hemoglobin concentration measurement ( mass/volume) 34 g/dL 32-36 Automated erythrocyte distribution width ratio 12.5 % 10.0-14.5 Automated blood platelet count (count/volume) 133 10*3/uL 130-400 Automated blood platelet mean volume measurement 13.6 [foz_us] 7.4-10.4 Automated blood neutrophils/100 leukocytes 69 % 42-75 Automated blood lymphocytes/100 leukocytes 21 % 12-44 Blood monocytes/100 leukocytes 8 % 0-12 Automated blood eosinophils/100 leukocytes 2 % 0-10 Automated blood basophils/100 leukocytes 1 % 0-10 Blood neutrophils automated count (number/volume) 9.2 10*3 1.8-7.8 Blood lymphocytes automated count (number/volume) 2.8 10*3 1.0-4.0 Blood monocytes automated count (number/volume) 1.0 10*3 0.0-1.0 Automated eosinophil count 0.2 10*3/uL 0.0-0.3 Automated blood basophil count (count/volume) 0.1 10*3/uL 0.0-0.1 Encounters ACCT No. Visit Date/Time Discharge Status Pt. Type Provider Facility Loc./Unit Complaint [id number] 08/18/2014 13:43:00 08/18/2014 23:59:59 CLS Outpatient TALAT NICOLEWILIAN Areli [id number] 06/23/2014 09:09:00 06/23/2014 23:59:59 CLS Outpatient JUAN F GUARDADO APRN [id number] 05/22/2014 12:36:00 05/22/2014 23:59:59 CLS Outpatient JENNY LIPSCOMB APRN [id number] 03/19/2014 11:23:00 03/19/2014 23:59:59 CLS Outpatient JASON DENNIS APRN [id number] 08/07/2013 13:36:00 08/07/2013 23:59:59 CLS Outpatient JUAN F GUARDADO APRN [id number] 08/30/2012 09:27:00 08/30/2012 23:59:59 CLS Outpatient [id number] 08/23/2012 09:36:00 08/23/2012 23:59:59 CLS Outpatient JUAN F GUARDADO APRN [id number] 08/10/2012 13:37:00 08/10/2012 23:59:59 CLS Outpatient [id number] 03/19/2013 15:01:00 Document Registration [id number] 12/11/2012 16:03:00 Document Registration [id number] 11/27/2012 10:44:00 Document Registration [id number] 08/23/2012 14:56:30 RECURRING [id number] 06/25/2018 13:03:00 06/25/2018 23:59:59 CLS Outpatient ONESIMO NICOLE HEMA C [facility] RAD 16 WEEKS GESTATION OF [id number] 06/29/2017 20:06:00 07/02/2017 16:10:00 DIS Inpatient HEMA ECHOLS DO [facility] LDRP INDUCTION [id number] 06/26/2017 15:46:00 06/26/2017 23:59:59 CLS Outpatient HEMA ECHOLS DO [facility] RAD O36.5930 SMALL FOR GESTATIONAL FETUS [id number] 04/19/2017 13:41:00 04/19/2017 15:10:00 DIS Outpatient MAYCO CAIN MD [facility] WSo CRAMPING,MUCUS DISCHARGE [id number] 02/23/2017 09:47:00 02/23/2017 23:59:59 CLS Outpatient HEMA ECHOLS DO [facility] RAD SURVEY [id number] 01/19/2017 22:50:00 01/19/2017 23:45:00 DIS Emergency NATACHA LANDERS MD [facility] ER 14 W /POST COITAL ABD PAIN [id number] 06/06/2016 13:56:00 06/06/2016 14:27:00 DIS Emergency 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 MONTERO RING BARKER 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
[2018-10-05] MEDS ORDERED: D5 LR IV SOLUTION 1,000 ML IV ONE (12:09)
[2018-10-05] MEDS ORDERED: AMPICILLIN FOR IV USE 2,000 MG in WATER (STERILE) FOR INJECTION 14.8 ML IV SCH (12:20)
[2018-10-05] MEDS: D5 LR IV SOLUTION 1,000 ML IV SCH ×2 (12:20→20:30)
[2018-10-05] MEDS ORDERED: AMPICILLIN FOR IV USE 2,000 MG VIAL ONE (12:25)
[2018-10-05] MEDS ORDERED: WATER (STERILE) FOR INJECTION 20 ML ONE (12:25)
[2018-10-05] MEDS ORDERED: MINERAL OIL CONCENTRATE 99.9% 15 ML UDC TOP PRN (12:30)
[2018-10-05 12:31] LABS: BASOPHILS % (AUTO) 0 % (0-10); EOSINOPHILS % (AUTO) 0 % (0-10); HEMATOCRIT 31 % (35-52); HEMOGLOBIN 10.6 G/DL (11.5-16.0); LYMPHOCYTES # (AUTO) 1.8 X 10^3 (1.0-4.0); LYMPHOCYTES % (AUTO) 9 % (12-44); MEAN CORPUSCULAR HEMOGLOBIN 29 PG (25-34); MEAN CORPUSCULAR HGB CONC 34 G/DL (32-36); MEAN CORPUSCULAR VOLUME 86 FL (80-99); MEAN PLATELET VOLUME 12.1 FL (7.4-10.4); MONOCYTES # (AUTO) 0.5 X 10^3 (0.0-1.0); MONOCYTES % (AUTO) 3 % (0-12); NEUTROPHILS % (AUTO) 88 % (42-75); PLATELET COUNT 251 10^3/uL (130-400); RED CELL DISTRIBUTION WIDTH 13.6 % (10.0-14.5); WHITE BLOOD COUNT 19.4 10^3/uL (4.3-11.0)
[2018-10-05 13:06] LABS: CLARITY,URINE SLIGHTLY CLOUDY; COLOR,URINE AMBER; GLUCOSE, URINE (UA) NEGATIVE (NEGATIVE); KETONES,URINE 2+ (NEGATIVE); LEUKOCYTE ESTERASE ,URINE 1+ (NEGATIVE); NITRITE,URINE NEGATIVE (NEGATIVE); PH,URINE 5 (5-9); PROTEIN,URINE 2+ (NEGATIVE); UROBILINOGEN,URINE 1 MG/DL (NORMAL)
[2018-10-05 13:09] LABS: BAND NEUTROPHILS 3 %; BASOPHILS % (MANUAL) 0 %; EOSINOPHILS % (MANUAL) 0 %; LYMPHOCYTES % (MANUAL) 13 %; MONOCYTES % (MANUAL) 2 %; MYELOCYTES % 2 %; NEUTROPHILS % (MANUAL) 80 %; RBC MORPH NORMAL
[2018-10-05 13:15] LABS: BILIRUBIN,URINE 1+ (NEGATIVE)
[2018-10-05 13:16] LABS: BACTERIA,URINE FEW /HPF; RBC,URINE RARE /HPF; SQUAMOUS EPITHELIAL CELL,UR 25-50 /HPF
[2018-10-05] MEDS ORDERED: FLU QUADRIvalent (5+ YOA) 2018-2019 (AFLURIA) 0.5 ML IM ONE (14:00)
[2018-10-05] MEDS ORDERED: CATHETER FLUSH 10 ML SYR IV SCH (14:00)
[2018-10-05] MEDS: AMPICILLIN FOR IV USE 1,000 MG in WATER (STERILE) FOR INJECTION 7.4 ML IV SCH ×2 (16:35→20:29)
--- NOTE | 2018-10-05 17:15 | NUR ---
Dr. Summers notified of WBC, UA results. No new orders rec'd at this time
--- NOTE | 2018-10-05 17:24 | Physician Progress Note ---
Progress Note Assessment/Plan Date Seen by Provider: Oct 05, 2018 Time Seen by Provider: 17:20 Events since last exam Has received 2 doses of Ampicillin. GBS pending. Received 2 doses of betamethasone. She has continued to contract regularly about every 2-3 minutes with the strength increasing. well being reassuring. category I tracing ROM with clear fluid Anticipate 10/05/18 10/05/18 12:00 13:50 Temp 98.0 Pulse 123 90 Resp 18 18 B/P (MAP) 111/67 (82) 112/72 (85) Pulse Ox 98 O2 Delivery Room Air Room Air Laboratory Tests Test 10/05/18 12:20 Range/Units White Blood Count 19.4 H 4.3-11.0 10^3/uL Red Blood Count 3.62 L 4.35-5.85 10^6/uL Hemoglobin 10.6 L 11.5-16.0 G/DL Hematocrit 31 L 35-52 % Mean Corpuscular Volume 86 80-99 FL Mean Corpuscular Hemoglobin 29 25-34 PG Mean Corpuscular Hemoglobin Concent 34 32-36 G/DL Red Cell Distribution Width 13.6 10.0-14.5 % Platelet Count 251 130-400 10^3/uL Mean Platelet Volume 12.1 H 7.4-10.4 FL Neutrophils (%) (Auto) 88 H 42-75 % Lymphocytes (%) (Auto) 9 L 12-44 % Monocytes (%) (Auto) 3 0-12 % Eosinophils (%) (Auto) 0 0-10 % Basophils (%) (Auto) 0 0-10 % Neutrophils # (Auto) 17.0 H 1.8-7.8 X 10^3 Lymphocytes # (Auto) 1.8 1.0-4.0 X 10^3 Monocytes # (Auto) 0.5 0.0-1.0 X 10^3 Eosinophils # (Auto) 0.0 0.0-0.3 10^3/uL Basophils # (Auto) 0.0 0.0-0.1 10^3/uL Neutrophils % (Manual) 80 % Lymphocytes % (Manual) 13 % Monocytes % (Manual) 2 % Eosinophils % (Manual) 0 % Basophils % (Manual) 0 % Myelocytes % 2 % Band Neutrophils 3 % Blood Morphology Comment NORMAL Urine Color DAYAN H Urine Clarity SLIGHTLY CLOUDY Urine pH 5 5-9 Urine Specific [place] 1.025 H 1.016-1.022 Urine Protein 2+ H NEGATIVE Urine Glucose (UA) NEGATIVE NEGATIVE Urine Ketones 2+ H NEGATIVE Urine Nitrite NEGATIVE NEGATIVE Urine Bilirubin 1+ H NEGATIVE Urine Urobilinogen 1 NORMAL MG/DL Urine Leukocyte Esterase 1+ H NEGATIVE Urine RBC (Auto) 4+ H NEGATIVE Urine RBC RARE /HPF Urine WBC 2-5 /HPF Urine Squamous Epithelial Cells 25-50 H /HPF Urine Crystals NONE /LPF Urine Bacteria FEW H /HPF Urine Casts NONE /LPF Urine Mucus MODERATE H /LPF Urine Culture Indicated CULTURE PENDING 35 4/7 weeks labor Severe IUGR (1%ile). Testing has been reassuring at [facility] in [place] Assessment/Plan anticipate epidural or pain med IV prn Vitals Last set of Vitals Signs Vital Signs Date Time Temp Pulse Resp B/P (MAP) Pulse Ox O2 Delivery O2 Flow Rate FiO2 10/05/18 13:50 90 18 112/72 (85) Room Air 10/05/18 12:00 98.0 98 Labs Laboratory Tests 10/05/18 12:20: White Blood Count 19.4H, Red Blood Count 3.62L, Hemoglobin 10.6L, Hematocrit 31L , Mean Corpuscular Volume 86, Mean Corpuscular Hemoglobin 29, Mean Corpuscular Hemoglobin Concent 34, Red Cell Distribution Width 13.6, Platelet Count 251, Mean Platelet Volume 12.1H, Neutrophils (%) (Auto) 88H, Lymphocytes (%) (Auto) 9L, Monocytes (%) (Auto) 3, Eosinophils (%) (Auto) 0, Basophils (%) (Auto) 0, Neutrophils # (Auto) 17.0H, Lymphocytes # (Auto) 1.8, Monocytes # (Auto) 0.5, Eosinophils # (Auto) 0.0, Basophils # (Auto) 0.0, Neutrophils % (Manual) 80, Lymphocytes % (Manual) 13, Monocytes % (Manual) 2, Eosinophils % (Manual) 0, Basophils % (Manual) 0, Myelocytes % 2, Band Neutrophils 3, Blood Morphology Comment NORMAL, Urine Color AMBERH, Urine Clarity SLIGHTLY CLOUDY, Urine pH 5, Urine Specific [place] 1.025H, Urine Protein 2+H, Urine Glucose (UA) NEGATIVE, Urine Ketones 2+H, Urine Nitrite NEGATIVE, Urine Bilirubin 1+H, Urine Urobilinogen 1, Urine Leukocyte Esterase 1+H, Urine RBC (Auto) 4+H, Urine RBC RARE, Urine WBC 2-5, Urine Squamous Epithelial Cells 25-50H, Urine Crystals NONE , Urine Bacteria FEWH, Urine Casts NONE, Urine Mucus MODERATEH, Urine Culture Indicated CULTURE PENDING Clinical Quality Measures DVT/VTE Risk/Contraindication: Risk Factor Score Per Nursin RFS Level Per Nursing on Admit: 2=Moderate HEMA ECHOLS DO Oct 05, 2018 17:23
[2018-10-05] MEDS ORDERED: PROMETHAZINE INJ 25 MG/ML (PHENERGAN) AMP IVP PRN (17:30)
[2018-10-05] MEDS ORDERED: BUTORPHANOL INJ 2 MG/ML (STADOL) VIAL IV ONE (17:30)
[2018-10-05] MEDS ORDERED: OXYTOCIN/NORMAL SALINE 500 ML IV SCH (19:38)
[2018-10-05] MEDS ORDERED: OXYTOCIN/NORMAL SALINE 500 ML IV ONE (19:49)
[2018-10-05] MEDS ORDERED: LIDOCAINE/EPI 2% 1:200,00 (XYLOCAINE) 10 ML VIAL ONE (21:00)
[2018-10-05] MEDS ORDERED: BUTORPHANOL INJ 2 MG/ML (STADOL) VIAL ONE (23:04)
[2018-10-05] MEDS ORDERED: SUFENTA 0.6MCG/ML BUPIVA 0.125 100 ML ONE (23:14)
[2018-10-05] MEDS ORDERED: BUPIVACAINE 0.25% 30 ML (SENSORCAINE) VIAL ONE (23:52)
[2018-10-05] MEDS ORDERED: fentaNYL INJECTION 100 MCG/2 ML AMP ONE (23:52)
[2018-10-05] MEDS ORDERED: LIDOCAINE PF 2% 5 ML (XYLOCAINE) VIAL ONE (23:52)
--- NOTE | 2018-10-05 23:58 | NUR ---
Sandra Valero CRNA and VIN here for epidural placement. Procedure explained, consent reviewed and signed by anesthesia. Questions answered to patient's satisfaction. Time out taken to verify correct patient/procedure. 0000 Patient up to side of bed, assisted into sitting position. Betadine prep done x3 and sterile drape applied. 0010 Local done, see anesthesia record. Test dose given, see anesthesia record for drug and dosage. 0014 Epidural catheter secured in place. Epidural placement complete. Assisted back into bed, monitors adjusted at 0022. Epidural dosed, see anesthesia record. Epidural of Sufenta/Bupvicaine @ 12cc/hr stated per pump. Patient tolerated procedure well.
[2018-10-06] VITALS (35 sets, daily range): BP systolic 91–115; BP diastolic 51–75
[2018-10-06] MEDS: AMPICILLIN FOR IV USE 1,000 MG in WATER (STERILE) FOR INJECTION 7.4 ML IV SCH (00:34)
[2018-10-06] MEDS ORDERED: LACTATED RINGERS 1,000 ML IV SCH (00:35)
--- NOTE | 2018-10-06 00:41 | NUR ---
Epidural Rate initially started at 12ml/hr. This RN called anesthesia back at 0041 due to pt c/o chest getting heavy and neck feeling numb. Sandra Valero CRNA decreased rate to 9ml/hr.
[2018-10-06] MEDS ORDERED: METOCLOPRAMIDE INJ 10 MG/2 ML (REGLAN) IV PRN (00:45)
[2018-10-06] MEDS ORDERED: ONDANSETRON 4 MG/2 ML (SDV) Z0FRAN IV PRN (00:45)
[2018-10-06] MEDS ORDERED: EPIDURAL (SUFENTA 0.6MCG/ML BUPIVA 0.125%) 100 ML BAG EPI PRN (00:45)
[2018-10-06] MEDS ORDERED: diphenhydrAMINE 50 MG/ML INJ (BENADRYL) IV PRN (00:45)
[2018-10-06] MEDS ORDERED: NALOXONE 0.4 MG/ML 1 ML (NARCAN) VIAL IV PRN ×2 (00:45)
[2018-10-06] MEDS ORDERED: OXYTOCIN/NORMAL SALINE 500 ML IV SCH (03:29)
--- NOTE | 2018-10-06 03:29 | OB Labor & Delivery Record ---
Vag Delivery Note Vag Delivery Note Date of Delivery: 10/06/18 Preoperative Diagnosis: Franny Jain is a 17 /Para 2/1 , Gestational Age 35 5/7 weeks, labor, GBS unknown, severe IUGR Postoperative Diagnosis: Same Surgeon: HEMA ECHOLS Anesthesia: epidural Delivery Type: vaginal Findings: Viable female infant, apgars 9/9, weight 2100 grams Lacerations: none Intact placenta with 3 vessel cord. Nuchal cord x 1 delivered through, no body cord or shoulder dystocia Estimated Blood Loss: 100 ml Complications: None Condition: Stable Description of Procedure: The patient is a 17 year old female who presented to the office y10/04 for routine visit and complained of low bakc pain, she was noted to be 4 cm dilated and denny irregularly, not in labor. she has been followed in [place] at [facility] for growth restriction discovered due to US for echogenic focus in the heart. Growth has been progressive but has always been 1-5%ile. She was given betamethasone x 1 and then returned 10/05 for repeat betamethasone. She stated her contractions were getting stronger and she was noted to be denny every 2-3 minutes and her cervix was now 5 cm and bulging membranes. She was admitted and informed consent was obtained. Her labor course was remarkable for several doses of IV ampicillin (Her GBS was done on 10/04 and had not been resulted). ROM and augmentation with pitocin. She progressed to complete dilatation and began to push. She was then set up for delivery. The 's head was delivered atraumatically in the GABI position. The shoulders and remainder of the infant's body were then delivered without difficulty. There was a loose nuchal cord delivered through. Upon delivery, the head was held below the level of the perineum and the mouth and nares were bulb suctioned. The cord was doubly clamped and cut and the infant was handed off to the pediatric staff. An intact placenta with 3-vessel cord delivered via [place] and there was found to be minimal bleeding.~ Vigorous fundal massage was performed and the fundus was found to be firm. IV oxytocin was given. Examination of the vagina and perineum revealed no lacerations. Following the delivery, sponge, instrument and needle counts were correct. Mom and baby were both in stable condition in the labor suite. Vitals - Labs Vital Signs - I&O Vital Signs Date Time Temp Pulse Resp B/P (MAP) Pulse Ox O2 Delivery O2 Flow Rate FiO2 10/06/18 00:35 98.3 108 18 98/53 (68) 97 Room Air 10/06/18 00:30 97 18 92/52 (65) 97 Room Air 10/06/18 00:27 107 18 96/54 (68) 97 Room Air 10/06/18 00:24 104 18 104/63 (77) 99 Room Air 10/06/18 00:21 126 18 109/68 (82) 99 Room Air 10/06/18 00:17 96 18 109/71 (84) 99 Room Air 10/06/18 00:16 96 18 109/62 (78) 99 Room Air 10/06/18 00:13 100 18 107/66 (80) 99 Room Air 10/06/18 00:00 110 18 115/70 (85) 97 Room Air 10/05/18 23:45 105 18 115/72 (86) Room Air 10/05/18 23:30 105 18 111/67 (82) Room Air 10/05/18 23:15 97 18 94/52 (66) Room Air 10/05/18 23:00 99.0 103 18 103/64 (77) Room Air 10/05/18 22:45 88 18 108/57 (74) Room Air 10/05/18 22:30 93 18 107/64 (78) Room Air 10/05/18 22:15 95 18 114/75 (88) Room Air 10/05/18 22:00 97 18 110/68 (82) Room Air 10/05/18 21:45 99.0 94 18 112/55 (74) Room Air 10/05/18 21:30 96 18 94/54 (67) Room Air 10/05/18 21:15 95 18 97/51 (66) Room Air 10/05/18 21:00 100 18 99/54 (69) Room Air 10/05/18 20:45 100 18 96/54 (68) Room Air 10/05/18 20:30 109 18 109/64 (79) Room Air 10/05/18 20:15 107 18 113/67 (82) Room Air 10/05/18 20:00 98.5 109 18 117/71 (86) Room Air 10/05/18 19:30 98.8 86 16 124/71 (88) Room Air 10/05/18 18:55 98.7 85 18 111/64 (80) Room Air 10/05/18 17:45 98.5 10/05/18 16:40 98.7 92 18 108/61 (77) Room Air 10/05/18 13:50 90 18 112/72 (85) Room Air 10/05/18 12:00 98.0 123 18 111/67 (82) 98 Room Air I & O 10/06/18 07:00 Intake Total 2014.8 ml Balance 2014.8 ml Labs Laboratory Tests 10/05/18 12:20: White Blood Count 19.4H, Red Blood Count 3.62L, Hemoglobin 10.6L, Hematocrit 31L , Mean Corpuscular Volume 86, Mean Corpuscular Hemoglobin 29, Mean Corpuscular Hemoglobin Concent 34, Red Cell Distribution Width 13.6, Platelet Count 251, Mean Platelet Volume 12.1H, Neutrophils (%) (Auto) 88H, Lymphocytes (%) (Auto) 9L, Monocytes (%) (Auto) 3, Eosinophils (%) (Auto) 0, Basophils (%) (Auto) 0, Neutrophils # (Auto) 17.0H, Lymphocytes # (Auto) 1.8, Monocytes # (Auto) 0.5, Eosinophils # (Auto) 0.0, Basophils # (Auto) 0.0, Neutrophils % (Manual) 80, Lymphocytes % (Manual) 13, Monocytes % (Manual) 2, Eosinophils % (Manual) 0, Basophils % (Manual) 0, Myelocytes % 2, Band Neutrophils 3, Blood Morphology Comment NORMAL, Urine Color AMBERH, Urine Clarity SLIGHTLY CLOUDY, Urine pH 5, Urine Specific [place] 1.025H, Urine Protein 2+H, Urine Glucose (UA) NEGATIVE, Urine Ketones 2+H, Urine Nitrite NEGATIVE, Urine Bilirubin 1+H, Urine Urobilinogen 1, Urine Leukocyte Esterase 1+H, Urine RBC (Auto) 4+H, Urine RBC RARE, Urine WBC 2-5, Urine Squamous Epithelial Cells 25-50H, Urine Crystals NONE , Urine Bacteria FEWH, Urine Casts NONE, Urine Mucus MODERATEH, Urine Culture Indicated CULTURE PENDING HEMA ECHOLS DO Oct 06, 2018 03:29
[2018-10-06] MEDS ORDERED: BENZOCAINE/MENTHOL (DERMOPLAST) 56 ML CAN TP PRN ×2 (03:30→13:15)
[2018-10-06] MEDS ORDERED: WITCH HAZEL(TUCKS) 40 EA JAR TOP PRN (03:30)
[2018-10-06] MEDS ORDERED: DIBUCAINE (NUPERCAINAL) 1% OINT 30 GM TOP PRN (03:30)
[2018-10-06] MEDS ORDERED: MEASLES,MUMPS,RUBELLA 1 EA INJ SQ ONE (03:30)
[2018-10-06] MEDS ORDERED: TETANUS,DIPTH,PERTUSS P/F (BOOSTRIX) 0.5 ML VIAL IM ONE (03:30)
[2018-10-06] MEDS ORDERED: ACETAMINOPHEN 500 MG TAB (TYLENOL) ONE (04:18)
[2018-10-06] MEDS: ACETAMINOPHEN 500 MG TAB (TYLENOL) PO SCH ×4 (04:20→21:47)
[2018-10-06] MEDS: IBUPROFEN 600 MG (MOTRIN) TAB PO SCH ×4 (04:20→21:46)
--- NOTE | 2018-10-06 05:30 | NUR ---
Pt. out of recovery. Ambulating in room. Pt transferred to room 309 via ambulation, accompanied by SO, , and staff. All personal belongings in pt possession. Pt oriented to room, room service, and call light within reach. SO and at bedside. fresh ice water given. plan of care discussed. No questions or concerns voiced at this time.
[2018-10-06] MEDS ORDERED: CATHETER FLUSH 10 ML SYR IV SCH (06:00)
[2018-10-06] MEDS: FERROUS SULF 325 MG (IRON) TAB PO SCH (11:22)
[2018-10-06] MEDS: DOCUSATE SODIUM 100 MG (COLACE) CAP PO SCH ×2 (11:22→21:47)
[2018-10-06] MEDS ORDERED: oxyCODONE/APAP 5/325MG (PERCOCET 5) TABLET ONE (13:29)
--- NOTE | 2018-10-06 14:46 | Anesthesia-Regional Post-Op ---
Regional Patient Condition Mental Status: Alert, Oriented x3 Circulation: Same as Pre-Op Headache: Absent Sensation: Full Recovery Motor Block: Absent Post Op Complications Complications None Follow Up Care/Instructions Patient Instructions None needed. Anesthesia/Patient Condition Patient is doing well, no complaints, stable vital signs, no apparent adverse anesthesia problems. No complications reported per nursing. SEN CORONADO CRNA Oct 06, 2018 14:46
--- NOTE | 2018-10-06 21:40 | NUR ---
PT. states that her stomach is feeling better and is requesting her pain meds at this time.
--- NOTE | 2018-10-07 00:34 | NUR ---
In to check on pt. Pt. states that they are doing well. Was getting infant out of crib at this time. No questions or concerns.
[2018-10-07] MEDS: IBUPROFEN 600 MG (MOTRIN) TAB PO SCH ×4 (03:56→23:38)
[2018-10-07 03:57] VITALS: BP 94/61
[2018-10-07 05:57] LABS: BASOPHILS # (AUTO) 0.2 10^3/uL (0.0-0.1); BASOPHILS % (AUTO) 1 % (0-10); EOSINOPHILS # (AUTO) 0.1 10^3/uL (0.0-0.3); EOSINOPHILS % (AUTO) 1 % (0-10); HEMATOCRIT 28 % (35-52); HEMOGLOBIN 9.2 G/DL (11.5-16.0); LYMPHOCYTES # (AUTO) 4.8 X 10^3 (1.0-4.0); LYMPHOCYTES % (AUTO) 29 % (12-44); MEAN CORPUSCULAR HEMOGLOBIN 29 PG (25-34); MEAN CORPUSCULAR HGB CONC 33 G/DL (32-36); MEAN CORPUSCULAR VOLUME 90 FL (80-99); MEAN PLATELET VOLUME 12.1 FL (7.4-10.4); MONOCYTES # (AUTO) 1.2 X 10^3 (0.0-1.0); MONOCYTES % (AUTO) 7 % (0-12); NEUTROPHILS % (AUTO) 61 % (42-75); PLATELET COUNT 179 10^3/uL (130-400); RED CELL DISTRIBUTION WIDTH 13.5 % (10.0-14.5); WHITE BLOOD COUNT 16.3 10^3/uL (4.3-11.0)
--- NOTE | 2018-10-07 10:35 | Postpartum Progress Note ---
Note Note Day # 1 s/p Subjective: Patient is without complaints. Ambulating, voiding. Tolerating a regular diet without nausea or vomiting. Normal lochia. Pain is well controlled with oral pain medications. [] feeding. [] Objective: 10/07/18 10/07/18 10/07/18 03:57 11:10 14:40 Temp 98.8 98.2 98.2 Pulse 78 87 89 Resp 20 20 16 B/P (MAP) 94/61 (72) 109/75 (86) 99/61 (74) Pulse Ox 98 O2 Delivery Room Air Room Air Room Air Laboratory Tests Test 10/07/18 05:50 Range/Units White Blood Count 16.3 H 4.3-11.0 10^3/uL Red Blood Count 3.14 L 4.35-5.85 10^6/uL Hemoglobin 9.2 L 11.5-16.0 G/DL Hematocrit 28 L 35-52 % Mean Corpuscular Volume 90 80-99 FL Mean Corpuscular Hemoglobin 29 25-34 PG Mean Corpuscular Hemoglobin Concent 33 32-36 G/DL Red Cell Distribution Width 13.5 10.0-14.5 % Platelet Count 179 130-400 10^3/uL Mean Platelet Volume 12.1 H 7.4-10.4 FL Neutrophils (%) (Auto) 61 42-75 % Lymphocytes (%) (Auto) 29 12-44 % Monocytes (%) (Auto) 7 0-12 % Eosinophils (%) (Auto) 1 0-10 % Basophils (%) (Auto) 1 0-10 % Neutrophils # (Auto) 10.0 H 1.8-7.8 X 10^3 Lymphocytes # (Auto) 4.8 H 1.0-4.0 X 10^3 Monocytes # (Auto) 1.2 H 0.0-1.0 X 10^3 Eosinophils # (Auto) 0.1 0.0-0.3 10^3/uL Basophils # (Auto) 0.2 H 0.0-0.1 10^3/uL Physical Exam: General - Alert and oriented, no apparent distress Abdomen - Soft, appropriately tender to palpation, non-distended, fundus firm at umbilicus Extremities - no edema, negative Blade's bilaterally Assessment: 1. post- day # 1, status post spontaneous vaginal delivery. Recovering well, hemodynamically stable Plan: Routine care. Encourage breast feeding. Encourage ambulation. Ferrous sulfate supplementation. Plan for discharge tomorrow Vitals - Labs Vital Signs - I&O Vital Signs Date Time Temp Pulse Resp B/P (MAP) Pulse Ox O2 Delivery O2 Flow Rate FiO2 10/07/18 03:57 98.8 78 20 94/61 (72) 98 Room Air 10/06/18 20:36 97.4 79 20 115/75 (88) 97 Room Air Labs Laboratory Tests 10/07/18 05:50: White Blood Count 16.3H, Red Blood Count 3.14L, Hemoglobin 9.2L, Hematocrit 28L , Mean Corpuscular Volume 90, Mean Corpuscular Hemoglobin 29, Mean Corpuscular Hemoglobin Concent 33, Red Cell Distribution Width 13.5, Platelet Count 179, Mean Platelet Volume 12.1H, Neutrophils (%) (Auto) 61, Lymphocytes (%) (Auto) 29 , Monocytes (%) (Auto) 7, Eosinophils (%) (Auto) 1, Basophils (%) (Auto) 1, Neutrophils # (Auto) 10.0H, Lymphocytes # (Auto) 4.8H, Monocytes # (Auto) 1.2H, Eosinophils # (Auto) 0.1, Basophils # (Auto) 0.2H Microbiology 10/05/18 Urine Culture - Final, Complete 3 or more isolates HEMA ECHOLS DO Oct 07, 2018 10:35
[2018-10-07 11:10] VITALS: BP 109/75
[2018-10-07] MEDS: CEPHALEXIN 250 MG (KEFLEX) CAP PO SCH ×2 (11:10→20:00)
[2018-10-07] MEDS: FERROUS SULF 325 MG (IRON) TAB PO SCH (11:10)
[2018-10-07] MEDS: DOCUSATE SODIUM 100 MG (COLACE) CAP PO SCH ×2 (11:10→20:00)
[2018-10-07 14:40] VITALS: BP 99/61
[2018-10-07 19:50] VITALS: BP 109/74
[2018-10-07] MEDS: ACETAMINOPHEN 500 MG TAB (TYLENOL) PO SCH (19:59)
[2018-10-08 03:24] VITALS: BP 99/65
[2018-10-08] MEDS: FERROUS SULF 325 MG (IRON) TAB PO SCH (08:09)
[2018-10-08] MEDS: CEPHALEXIN 250 MG (KEFLEX) CAP PO SCH (08:09)
[2018-10-08] MEDS: IBUPROFEN 600 MG (MOTRIN) TAB PO SCH ×2 (08:10→14:19)
[2018-10-08] MEDS: ACETAMINOPHEN 500 MG TAB (TYLENOL) PO SCH (08:14)
[2018-10-08] MEDS: DOCUSATE SODIUM 100 MG (COLACE) CAP PO SCH (08:17)
[2018-10-08 08:20] VITALS: BP 122/80
[2018-10-08] MEDS ORDERED: IBUP-1773 PO (09:13)
[2018-10-08] MEDS ORDERED: CEPH500C PO (09:13)
[2018-10-08] MEDS ORDERED: Oxycodone Hcl PO (09:13)
[2018-10-08] MEDS ORDERED: ACET-77 PO (09:13)
[2018-10-08] MEDS ORDERED: DOCU100C37 PO (09:13)
--- NOTE | 2018-10-08 09:19 | Discharge Inst-Women's Service ---
Discharge Inst-Women's Serv Depart Medication/Instructions New, Converted or Re-Newed RX: RX on Chart Instructions nothing in the vagina for 4 weeks Final Diagnosis labor IUGR UTI Consults/Follow Up Additional Follow Up: Yes (6 weeks with Kristopher) Activity Activity: Activity as Tolerated Driving Instructions: You May Drive NO SMOKING: NO SMOKING Nothing Inside Vagina: No Douching, No [place], No Tampons Diet Discharge Diet: No Restrictions Symptoms to Report to : Swelling Increased, Pain Increased, Fever Over 101 Degrees F, Vaginal Bleeding Increase, Cramps in Feet or Legs, Vaginal Discharge Foul For Any Problems or Questions: Contact Your Physician HEMA ECHOLS DO Oct 08, 2018 09:19
--- NOTE | 2018-10-08 09:20 | Postpartum Progress Note ---
Note Note Day # [] Subjective: Patient is without complaints. Ambulating, voiding. Tolerating a regular diet without nausea or vomiting. Normal lochia. Pain is well controlled with oral pain medications. [] feeding. [] Objective: 10/08/18 10/08/18 03:24 08:20 Temp 98.4 98.1 Pulse 74 68 Resp 16 18 B/P (MAP) 99/65 (76) 122/80 (94) Pulse Ox 97 97 O2 Delivery Room Air Physical Exam: General - Alert and oriented, no apparent distress Abdomen - Soft, appropriately tender to palpation, non-distended, fundus firm at umbilicus Extremities - no edema, negative Blade's bilaterally [] Assessment: [] post- day # [], status post [] vaginal delivery. Recovering well, hemodynamically stable [] Plan: Routine care. Encourage breast feeding. Encourage ambulation. Ferrous sulfate supplementation. Plan for discharge [] Vitals - Labs Vital Signs - I&O Vital Signs Date Time Temp Pulse Resp B/P (MAP) Pulse Ox O2 Delivery O2 Flow Rate FiO2 10/08/18 08:20 98.1 68 18 122/80 (94) 97 Room Air 10/08/18 03:24 98.4 74 16 99/65 (76) 97 10/07/18 19:50 97.9 90 18 109/74 (86) 99 10/07/18 14:40 98.2 89 16 99/61 (74) Room Air 10/07/18 11:10 98.2 87 20 109/75 (86) Room Air Labs Microbiology 10/05/18 Urine Culture - Final, Complete 3 or more isolates HEMA ECHOLS DO Oct 08, 2018 09:20
[2018-10-08 13:24] VITALS: BP 110/76
--- NOTE | 2018-10-08 15:50 | NUR ---
Explained Discharge and home instruction to pt and with copy. Rx given. Pt verbalized understanding. Verified by signing signature page. No concerns voiced at this time.
--- NOTE | 2018-10-08 16:10 | NUR ---
Pt discharge. Ambulatory and accompanied via this nurse to personal vehicle. Babe in child safety seat and clicked in. No concerns voiced at this time. No s/s of distress.
== END 2018-10-08 16:10 | disposition home or self-care (01) | DRG 807 ==
LOC: LDRP 11:45
PROVIDERS: ADMIT Obstetrics & Gynecology; ATTEND Obstetrics & Gynecology
PROC: 10E0XZZ Delivery of Products of Conception, External Approach (ICD-10-PCS; principal; 2018-10-06)
DX: O60.14X0 Preterm labor third trimester with preterm delivery third trimester, not applicable or unspecified (principal); O36.5930 Maternal care for other known or suspected poor fetal growth, third trimester, not applicable or unspecified; O69.81X0 Labor and delivery complicated by cord around neck, without compression, not applicable or unspecified; Z3A.35 35 weeks gestation of pregnancy; Z37.0 Single live birth
CPT/HCPCS: 36415; 81000; 85007; 85025; 85027; 86850; 86900; 86901; 87088; 99212

== ENCOUNTER 2018-12-22 18:42 | Emergency (ER) | payer SELFPAY ==
[~2018-12-22] VITALS: Ht 152.4 cm; Wt 58.5 kg
[~2018-12-22 18:42] MED LIST changes: +ACET-77 PO; +CEPH500C PO; +DOCU100C37 PO; +Oxycodone Hcl PO
[2018-12-22] MEDS ORDERED: LACTATED RINGERS 1,000 ML IV ONE (18:51)
[2018-12-22 18:58] LABS: BASOPHILS # (AUTO) 0.1 10^3/uL (0.0-0.1); BASOPHILS % (AUTO) 1 % (0-10); EOSINOPHILS # (AUTO) 0.4 10^3/uL (0.0-0.3); EOSINOPHILS % (AUTO) 3 % (0-10); HEMATOCRIT 39 % (35-52); HEMOGLOBIN 13.1 G/DL (11.5-16.0); LYMPHOCYTES # (AUTO) 2.4 X 10^3 (1.0-4.0); LYMPHOCYTES % (AUTO) 19 % (12-44); MEAN CORPUSCULAR HEMOGLOBIN 28 PG (25-34); MEAN CORPUSCULAR HGB CONC 34 G/DL (32-36); MEAN CORPUSCULAR VOLUME 83 FL (80-99); MEAN PLATELET VOLUME 11.7 FL (7.4-10.4); MONOCYTES # (AUTO) 0.7 X 10^3 (0.0-1.0); MONOCYTES % (AUTO) 6 % (0-12); NEUTROPHILS # (AUTO) 8.9 X 10^3 (1.8-7.8); NEUTROPHILS % (AUTO) 71 % (42-75); PLATELET COUNT 275 10^3/uL (130-400); RED CELL DISTRIBUTION WIDTH 15.5 % (10.0-14.5); WHITE BLOOD COUNT 12.5 10^3/uL (4.3-11.0)
--- NOTE | 2018-12-22 18:59 | NUR ---
REPORT FROM SEVEN ELKINS
[2018-12-22] MEDS ORDERED: RT-ALBUTEROL/IPRATROPIUM 3 ML (DUONEB) VIAL INH ONE ×2 (19:00→19:30)
--- NOTE | 2018-12-22 19:00 | ED Respiratory ---
General Chief Complaint: Cough/Cold/Flu Symptoms Stated Complaint: CP,SOB Source: patient Exam Limitations: no limitations History of Present Illness Date Seen by Provider: Dec 22, 2018 Time Seen by Provider: 18:45 Initial Comments Patient presents the ER by EMS from home with chief complaint for the past 3 days she's had a cough pain on expiration in her back of her chest as well as of her chest today. Had some chills but no sick objective fevers. She denies a history of asthma or COPD. She smokes about half a pack cigarettes per day. She is 2 months post . 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 She was followed by Dr. Summers. She denies nausea dysuria diarrhea constipation. She said she took a couple hits off her mother's albuterol inhaler and this gave her a couple hours of relief but then the coughing came back. She is on the first month of Depo-Provera. She says her periods were never regulated and for the past 2 months she's had pretty much constant bleeding. Allergies and Home Medications Allergies Coded Allergies: No Known Drug Allergies (Unverified , 11/14/11) Patient Home Medication List Home Medication List Reviewed: Yes Review of Systems Review of Systems Constitutional: chills; No diaphoresis, No fever; malaise EENTM: No ear discharge, No ear pain Respiratory: cough; No phlegm; short of breath, wheezing Cardiovascular: No chest pain, No edema Gastrointestinal: No abdominal pain, No nausea Genitourinary: No discharge, No dysuria : No Musculoskeletal: No back pain, No joint pain Past Zzonmxs-Axeyty-Yybrnt Hx Patient Social History Alcohol Use: Denies Use Recreational Drug Use: No Smoking Status: Current Everyday Smoker Type Used: Cigarettes Recent Foreign Travel: No Contact w/Someone Who Travel: No Recent Hopitalizations: No Immunizations Up To Date Tetanus Booster (TDap): Unknown PED Vaccines UTD: No Date of Influenza Vaccine: May 11, 2017 Seasonal Allergies Seasonal Allergies: No Past Medical History Surgeries: No Respiratory: No Cardiac: Yes (HSP) Neurological: No Reproductive Disorders: No Sexually Transmitted Disease: Yes (herpes) HIV/AIDS: No Genitourinary: No Gastrointestinal: No Musculoskeletal: No Endocrine: No HEENT: No Cancer: No Psychosocial: Yes Anxiety, Bipolar, Depression Integumentary: No Blood Disorders: No Adverse Reaction/Blood Tranf: No Family Medical History Asthma 19 MOTHER Cervical cancer 19 MOTHER Congenital heart disease G8 SISTER Diabetes mellitus G8 BROTHER Seizure disorder 19 MOTHER Physical Exam Vital Signs - First Documented 12/22/18 12/22/18 18:46 19:15 Temp 100.0 Pulse 114 Resp 18 B/P (MAP) 111/76 (88) Pulse Ox 96 O2 Delivery Room Air Capillary Refill : Height: 5'0.00" Weight: 129lbs. 0.8oz. 58.063493un; 25.2 BMI Method:Stated General Appearance: WD/WN, mild distress Eyes: Bilateral Eye Normal Inspection, Bilateral Eye PERRL, Bilateral Eye EOMI HEENT: normal ENT inspection, pharynx normal Neck: full range of motion, normal inspection Respiratory: chest non-tender, no accessory muscle use, respiratory distress (mild), wheezing (bilaterally), other (chest discomfort re-created by deep inspiration.) Cardiovascular: normal peripheral pulses, regular rate, rhythm Gastrointestinal: normal bowel sounds, non tender, soft Extremities: non-tender, normal inspection, normal capillary refill Neurologic/Psychiatric: alert, normal mood/affect, oriented x 3 Skin: normal color, warm/dry Progress/Results/Core Measures Suspected Sepsis SIRS Temperature: Pulse: Respiratory Rate: Laboratory Tests 12/22/18 18:47: White Blood Count 12.5H Blood Pressure / Mean: Laboratory Tests 12/22/18 18:47: Creatinine 0.90, Platelet Count 275, Total Bilirubin 0.3 Results/Orders Lab Results Laboratory Tests Test 12/22/18 18:47 Range/Units White Blood Count 12.5 H 4.3-11.0 10^3/uL Red Blood Count 4.63 4.35-5.85 10^6/uL Hemoglobin 13.1 11.5-16.0 G/DL Hematocrit 39 35-52 % Mean Corpuscular Volume 83 80-99 FL Mean Corpuscular Hemoglobin 28 25-34 PG Mean Corpuscular Hemoglobin Concent 34 32-36 G/DL Red Cell Distribution Width 15.5 H 10.0-14.5 % Platelet Count 275 130-400 10^3/uL Mean Platelet Volume 11.7 H 7.4-10.4 FL Neutrophils (%) (Auto) 71 42-75 % Lymphocytes (%) (Auto) 19 12-44 % Monocytes (%) (Auto) 6 0-12 % Eosinophils (%) (Auto) 3 0-10 % Basophils (%) (Auto) 1 0-10 % Neutrophils # (Auto) 8.9 H 1.8-7.8 X 10^3 Lymphocytes # (Auto) 2.4 1.0-4.0 X 10^3 Monocytes # (Auto) 0.7 0.0-1.0 X 10^3 Eosinophils # (Auto) 0.4 H 0.0-0.3 10^3/uL Basophils # (Auto) 0.1 0.0-0.1 10^3/uL Sodium Level 138 135-145 MMOL/L Potassium Level 4.0 3.6-5.0 MMOL/L Chloride Level 110 H 98-107 MMOL/L Carbon Dioxide Level 18 L 21-32 MMOL/L Anion Gap 10 5-14 MMOL/L Blood Urea Nitrogen 8 7-18 MG/DL Creatinine 0.90 0.60-1.30 MG/DL Estimat Glomerular Filtration Rate > 60 BUN/Creatinine Ratio 9 Glucose Level 95 70-105 MG/DL Calcium Level 9.3 8.5-10.1 MG/DL Corrected Calcium 9.1 8.5-10.1 MG/DL Total Bilirubin 0.3 0.1-1.0 MG/DL Aspartate Amino Transf (AST/SGOT) 17 5-34 U/L Alanine Aminotransferase (ALT/SGPT) 9 0-55 U/L Alkaline Phosphatase 97 40-136 U/L C-Reactive Protein High Sensitivity 0.91 H 0.00-0.50 MG/DL Total Protein 7.4 6.4-8.2 GM/DL Albumin 4.3 3.2-4.5 GM/DL My Orders Orders - EDOUARD LOZANO Chest Pa/Lat (2 View) (12/22/18 18:51) Cbc With Automated Diff (12/22/18 18:51) Comprehensive Metabolic Panel (12/22/18 18:51) Hs C Reactive Protein (12/22/18 18:51) Ed Iv/Invasive Line Start (12/22/18 18:51) Lactated Ringers (Lr 1000 Ml Iv Solution (12/22/18 18:51) Albuterol/Ipra Inhalation Soln (Duoneb I (12/22/18 19:00) Urine Bedside (12/22/18 18:51) Svn Small Volume Nebulizer (12/22/18 18:51) Albuterol Pre-Mix Nebs (Rt) (Proventil (12/22/18 19:23) Albuterol/Ipra Inhalation Soln (Duoneb I (12/22/18 19:30) Svn Small Volume Nebulizer (12/22/18 19:23) Methylprednisolone Sod Succ (Solu-Medrol (12/22/18 19:45) Medications Given in ED Current Medications Medications Dose Ordered Sig/Hever Route Start Time Stop Time Status Last Admin Dose Admin Albuterol/ Ipratropium 3 ml ONCE ONCE INH 12/22/18 19:00 12/22/18 19:01 DC 12/22/18 19:15 3 ML Albuterol/ Ipratropium 3 ml ONCE ONCE INH 12/22/18 19:30 12/22/18 19:31 DC 12/22/18 19:40 3 ML Lactated Ringer's 1,000 ml @ 0 mls/hr Q0M ONCE IV 12/22/18 18:51 12/22/18 18:55 DC 12/22/18 19:06 0 MLS/HR Methylprednisolone Sodium Succinate 125 mg ONCE ONCE IVP 12/22/18 19:45 12/22/18 19:47 DC 12/22/18 19:51 125 MG Vital Signs/I&O 12/22/18 12/22/18 12/22/18 18:46 19:15 19:40 Temp 100.0 Pulse 114 Resp 18 B/P (MAP) 111/76 (88) Pulse Ox 96 97 O2 Delivery Room Air Room Air Capillary Refill : Progress Note #1: Time: 18:59 Progress Note Jennifer, labs, 2 view chest x-ray and reexamination. We'll give her a liter fluids as she is tachycardic in the 110-120 range. Pneumonia versus bronchitis with bronchospasm versus pleuritic chest pain origin. 1930: While her white count is marginally elevated at 12.5 and her heart rate is elevated in the 110s to 120 due to her recent albuterol usage. Is no evidence of a pneumonia on chest x-ray. Many crackles just wheezes. Plan to give her an hour-long since the first breathing treatment helped some aeration but she still has quite a bit of wheezing. She seems to be having bronchitis with likely asthma exacerbation. Her oxygen saturation and lowest was only 93% on room air so after breathing treatment she should probably be okay to go home on breathing treatments and steroids. While she technically crosses service criteria we will not treat her like sepsis as there is no definitive evidence of a bacterial infection. Progress Note #2: Time: 20:52 Progress Note Patient's lung sounds are improved 90%. She has just a sparse wheezes on the right side heard. No crackles. Her oxygenation is 98% on room air. She feels better. Her heart races because of the albuterol. We have discussed observation versus going home on prednisone and albuterol and she says that she has a nebulizer at home but her mother uses if we can get her some albuterol. Diagnostic Imaging Diagonstic Imaging: Xray Plain Films/CT/US/NM/MRI: chest (2v) Comments No acute cardiopulmonary processes noted. NAME: MATILDA LLANOS [facility] REC#: [id number] PT STATUS: REG ER : 2000 PHYSICIAN: EDOUARD LOZANO MD ADMIT DATE: 12/22/18/ER Draft Date of Exam:12/22/18 CHEST PA/LAT (2 VIEW) INDICATION: Cough and shortness of breath. FINDINGS: PA and lateral views. The lungs are well-aerated and clear. There is no air trapping. The heart is not enlarged. There is no pulmonary edema. No pneumothorax or pleural effusions. No hilar adenopathy. No bony abnormalities. IMPRESSION: Normal PA and lateral chest Dictated on workstation # [id number] Dict: 12/22/181931 Trans: 12/22/181933 [facility] [id number] Interpreted by: RITA JUNIOR MD Electronically signed by: Reviewed: Reviewed by Me Departure Impression Primary Impression: Bronchitis Disposition: 01 HOME, SELF-CARE Condition: Improved Departure-Patient Inst. Decision time for Depature: 20:53 Referrals: WILIAN GILLILAND DO (PCP/Family) Primary Care Physician Patient Instructions: Acute Bronchitis, Adult (DC) Add. Discharge Instructions: Drink lots of fluids and use Mucinex. Use the albuterol every 6 hours while awake for the next 1-2 weeks until your symptoms go away. If you need an extra dose every 4 hours in between that would be fine as well. Plan to follow-up in one week with a primary care doctor to establish care and make sure that you are getting better as well as check for asthma. 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 If you have difficulty breathing or other worrisome symptoms please return to [facility] ER for reevaluation. All discharge instructions reviewed with patient and/or family. Voiced understanding. Scripts Prednisone (Prednisone) 20 Mg Tab 40 MG PO DAILY, #10 TAB 0 Refills Prov: EDOUARD LOZANO 12/22/18 Albuterol Sulfate (Albuterol Sulfate) 2.5 Mg/3 Ml Vial.neb 2.5 MG INH Q4H PRN for WHEEZING, #50 EA 1 Refill Prov: EDOUARD LOZANO 12/22/18 EDOUARD LOZANO Dec 22, 2018 19:00
[2018-12-22 19:15] LABS: ALANINE AMINOTRANSFERASE 9 U/L (0-55); ALBUMIN 4.3 GM/DL (3.2-4.5); ALKALINE PHOSPHATASE 97 U/L (40-136); BILIRUBIN,TOTAL 0.3 MG/DL (0.1-1.0); BUN/CREATININE RATIO 9; CALCIUM 9.3 MG/DL (8.5-10.1); CARBON DIOXIDE 18 MMOL/L (21-32); CHLORIDE 110 MMOL/L (98-107); GFR ESTIMATED > 60; GLUCOSE 95 MG/DL (70-105); SODIUM 138 MMOL/L (135-145); TOTAL PROTEIN 7.4 GM/DL (6.4-8.2)
[2018-12-22] MEDS ORDERED: RT-ALBUTEROL SULF 2.5 MG/3 ML PRE-MIX VIAL INH STA (19:23)
--- NOTE | 2018-12-22 19:35 | Diagnostic Imaging Report ---
INDICATION: Cough and shortness of breath. FINDINGS: PA and lateral views. The lungs are well-aerated and clear. There is no air trapping. The heart is not enlarged. There is no pulmonary edema. No pneumothorax or pleural effusions. No hilar adenopathy. No bony abnormalities. IMPRESSION: Normal PA and lateral chest Dictated by: Dictated on workstation # [id number]
[2018-12-22] MEDS ORDERED: methylPREDNISolone 125 MG (Solu-MEDROL) VIAL IVP ONE (19:45)
[2018-12-22] MEDS ORDERED: ALBU2.5V4 INH (20:56)
[2018-12-22] MEDS ORDERED: PRD20T PO (20:56)
[2018-12-22] MEDS ORDERED: RX-ALBUTEROL NEB 2.5 MG/3 ML PACK #5 IH STA (21:12)
[2018-12-22 21:16] VITALS: BP 128/67
--- OUTSIDE RECORDS SUMMARY | 2018-12-23 06:02 | XMS REPORT ---
Author Author Migration, Doctor Organization [facility] Address Unknown Phone Unavailable Care Team Providers Care Property And Equipment Clerk Name Role Phone Migration, Doctor Unavailable Unavailable PROBLEMS Type Condition ICD9-CM Code ZDI61-DB Code Onset Dates Condition Status SNOMED Code Problem Swelling of right hand M79.89 Active 702971832 Problem Anxiety F41.9 Active 64674144 Problem Family history of autoimmune disorder Z83.2 Active 478264830 Problem Hair loss L65.9 Active [id number] ALLERGIES No Information ENCOUNTERS Encounter Location Date Diagnosis [place] [id number] [id number] [place] [id number] Oct, [place] [address] [address] Aug, Anxiety F41.9 [facility] [address] [address] May, Fever, unspecified fever cause R50.9 ; Other viral agents as the cause of diseases classified elsewhere B97.89 and Acute upper respiratory infection, unspecified J06.9 [place] [id number] [place] [address] Mar, Lump R22.9 [facility] [id number] [place] [id number] November, Chest wall pain R07.89 and Community acquired pneumonia J18.9 [place] [address] [address] November, Viral upper respiratory tract infection J06.9 ; Encounter for immunization Z23 ; Hives L50.9 and Insect bites, initial encounter W57.XXXA [facility] [id number] [place] [id number] Sep, Encounter for dental examination and cleaning without abnormal findings Z01.20 [place] [address] [address] [id number] [place] [address] Aug, Upper respiratory tract infection, unspecified type 465.[address] [facility] [id number] [place] [address] Aug, Rash R21 [place] [address] [address] Aug, Hair loss L65.9 ; Raynauds phenomenon without gangrene I73.00 ; Family history of autoimmune disorder Z83.2 and Swelling of right hand M79.89 [place] [id number] [place] [phone] Aug, Raynauds phenomenon without gangrene I73.00 ; Hair loss L65.9 ; Family history of autoimmune disorder Z83.2 and Swelling of right hand M79.89 [place] [id number] [place] [address] Aug, Raynauds phenomenon without gangrene I73.00 ; Hair loss L65.9 ; Family history of autoimmune disorder Z83.2 and Swelling of right hand M79.89 [place] [id number] [place] [address] Aug, [place] [id number] [place] [phone] Dec, [place] [id number] [place] [address] Dec, [place] [address] [address] Dec, Constipation - functional 564.09 and Hair loss 704.00 [place] [id number] [place] [address] Dec, [place] [address] [place] [address] 14 Oct, 2014 [facility] [place] [facility] [address] [id number] [place] [address] Oct, [facility] [place] [facility] [address] [id number] [place] [address] Aug, [facility] [place] [facility] [address] [id number] [place] [address] Aug, [facility] [place] [facility] [address] [id number] [place] [address] Jul, [facility] [place] [facility] [address] [id number] [place] [address] Jul, [facility] [place] [facility] [address] [id number] [place] [address] Jun, [facility] [place] [facility] [address] [id number] [place] [address] Jun, [facility] [place] [facility] [address] [id number] [place] [address] Apr, [facility] [place] [facility] [address] [id number] [place] [address] Apr, [facility] [place] [facility] [address] [facility] [id number] [place] [address] Mar, [facility] [place] [facility] [address] [id number] [place] [address] Mar, [facility] [place] [facility] [address] [id number] [place] [address] Feb, [facility] [place] [facility] [address] [id number] [place] [address] Feb, [facility] [place] [facility] [address] [id number] [place] [address] Feb, [facility] [place] [facility] [address] [id number] [place] [address] Jul, [facility] [place] [facility] [address] [id number] [place] [address] Jul, [facility] [address] [id number] [place] [address] Feb, [facility] [address] [id number] [place] [address] November, [facility] [address] [id number] [place] [address] November, [facility] [address] [id number] [place] [address] November, [facility] [address] [id number] [place] [address] Aug, [facility] [address] [id number] [place] [address] Jul, [facility] [address] [id number] [place] [address] Jul, [facility] [address] [id number] [place] [address] Jul, [facility] [address] [id number] [place] [address] Jul, [facility] [address] [id number] [place] [address] Oct, [facility] [address] [id number] [place] [address] 24 Sep, 2011 [facility] [address] [id number] [place] [address] 20 Sep, 2011 [facility] [address] [id number] [place] [address] 13 Sep, 2011 [facility] [address] [id number] [place] [address] 07 Sep, 2011 [facility] [address] [id number] [place] [address] Jul, [facility] [address] [facility] [id number] [place] [address] Jul, [facility] [address] [facility] [id number] [address] Jul, [facility] [address] [facility] [id number] [place] [address] Jul, IMMUNIZATIONS No Known Immunizations SOCIAL HISTORY Never Assessed REASON FOR VISIT EMR[place] PLAN OF CARE VITAL SIGNS MEDICATIONS Unknown Medications RESULTS No Results PROCEDURES No Known procedures INSTRUCTIONS MEDICATIONS ADMINISTERED No Known Medications MEDICAL (GENERAL) HISTORY Type Description Date Medical History Depressive disorder, not elsewhere classified Medical History [facility] Hospitalization History 6 yrs [facility]
--- OUTSIDE RECORDS SUMMARY | 2018-12-23 06:03 | XMS REPORT ---
Author Author Migration, Doctor Organization [facility] Address Unknown Phone Unavailable Care Team Providers Care Rn Hemodialysis Name Role Phone Migration, Doctor Unavailable Unavailable PROBLEMS Type Condition ICD9-CM Code RWB86-SA Code Onset Dates Condition Status SNOMED Code Problem Swelling of right hand M79.89 Active 367182000 Problem Anxiety F41.9 Active 37156200 Problem Family history of autoimmune disorder Z83.2 Active 534733460 Problem Hair loss L65.9 Active 67879933 ALLERGIES No Information ENCOUNTERS Encounter Location Date Diagnosis [facility] [id number] [place] [address] 09 Aug, 2017 Anxiety F41.9 [facility] [address] [address] May, Fever, unspecified fever cause R50.9 ; Other viral agents as the cause of diseases classified elsewhere B97.89 and Acute upper respiratory infection, unspecified J06.9 [place] [id number] [place] [address] Mar, Lump R22.9 [facility] [id number] [place] [id number] 16 Nov, 2015 Chest wall pain R07.89 and Community acquired pneumonia J18.9 [facility] [id number] [place] [address] November, Viral upper respiratory tract infection J06.9 ; Encounter for immunization Z23 ; Hives L50.9 and Insect bites, initial encounter W57.XXXA [facility] [id number] [place] [id number] Sep, Encounter for dental examination and cleaning without abnormal findings Z01.20 [facility] [address] [address] Aug, Upper respiratory tract infection, unspecified type 465.9 and Allergic rhinitis J30.9 [facility] [id number] [place] [address] Aug, Rash R21 [facility] [id number] [place] [address] Aug, Hair loss L65.9 ; Raynauds phenomenon without gangrene I73.00 ; Family history of autoimmune disorder Z83.2 and Swelling of right hand M79.89 [facility] [address] [address] Aug, Raynauds phenomenon without gangrene I73.00 ; Hair loss L65.9 ; Family history of autoimmune disorder Z83.2 and Swelling of right hand M79.89 [facility] [address] [address] Aug, Raynauds phenomenon without gangrene I73.00 ; Hair loss L65.9 ; Family history of autoimmune disorder Z83.2 and Swelling of right hand M79.89 [facility] [address] [address] Aug, [facility] [id number] [place] [address] Dec, [facility] [address] [address] Dec, [facility] [id number] [place] [address] Dec, Constipation - functional 564.09 and Hair loss 704.00 [facility] [address] [address] Dec, [facility] [address] [address] Oct, [facility] [address] [place] [address] Oct, [facility] [place] [facility] [address] [id number] [place] [address] Aug, [facility] [place] [facility] [address] [id number] [place] [address] Aug, [facility] [place] [facility] [address] [id number] [place] [address] Jul, [facility] [place] [facility] [address] [id number] [place] [address] Jul, [facility] [place] [facility] [address] [id number] [place] [address] Jun, [facility] [place] [facility] [address] [id number] [place] [address] Jun, [facility] [place] [facility] [address] [id number] [place] [address] Apr, [facility] [place] [facility] [address] [id number] [place] [address] Apr, [facility] [place] [facility] [address] [id number] [place] [address] Mar, [facility] [place] [facility] [address] [facility] [id number] [place] [address] Mar, [facility] [place] [facility] [address] [id number] [place] [address] Feb, [facility] [place] [facility] [address] [id number] [place] [address] Feb, [facility] [place] [facility] [address] [id number] [place] [address] Feb, [facility] [place] [facility] [address] [id number] [place] [address] Jul, [facility] [place] [facility] [address] [id number] [place] [address] Jul, [facility] [place] [facility] [address] [id number] [place] [address] Feb, [facility] [address] [id number] [place] [address] November, [facility] [address] [id number] [place] [address] November, [facility] [address] [id number] [place] [address] November, [facility] [address] [id number] [place] [address] Aug, [facility] [address] [id number] [place] [address] Jul, [facility] [address] [id number] [place] [address] Jul, [facility] [address] [id number] [place] [address] Jul, [facility] [address] [id number] [place] [address] Jul, [facility] [address] [id number] [place] [address] Oct, [facility] [address] [id number] [place] [address] 24 Sep, 2011 [facility] [address] [id number] [place] [address] 20 Sep, 2011 [facility] [address] [id number] [place] [address] 13 Sep, 2011 [facility] [address] [id number] [place] [address] 07 Sep, 2011 [facility] [address] [id number] [place] [address] 18 Jul, 2011 [facility] [address] [id number] [place] [address] Jul, [facility] [address] [facility] [id number] [place] [address] Jul, [facility] [address] [facility] [id number] [place] [address] Jul, IMMUNIZATIONS No Known Immunizations SOCIAL HISTORY Never Assessed REASON FOR VISIT [place] C[place] VITAL SIGNS MEDICATIONS Medication Instructions Dosage Frequency Start Date End Date Duration Status minocycline 100 mg 1 tablet by Oral route 1 time per day Oct, Active Omnicef 300 mg 2 capsule by Oral route 1 time per day for 10 day(s) Oct, Active Condylox 0.5 % 1 dose by Topical route 2 times per day for 3 d, then DC for 4 d, repeat weekly until clear or for 4 weeks Jul, Active Escitalopram Oxalate 10 mg take 1 tablet (10 mg) by oral route once daily Jul, Active Bactroban 2 % 1 lay by Topical route 2 times per day for 14 day(s) Apr, Active Abilify 2 mg 1 tablet by Oral route 1 time per day Apr, Active Depo-Provera 150 mg/mL inject 1 milliliter (150 mg) by intramuscular route every 3 months Apr, Active Azithromycin 250 mg 2 Tablet by Oral route on day 1 then take 1 daily for 4 days Feb, Active Bactrim DS 800-160 mg 1 tablet by Oral route 2 times per day for 10 day(s) Jul, Active RESULTS No Results PROCEDURES No Known procedures INSTRUCTIONS MEDICATIONS ADMINISTERED No Known Medications MEDICAL (GENERAL) HISTORY Type Description Date Medical History Depressive disorder, not elsewhere classified Medical History [facility]
--- OUTSIDE RECORDS SUMMARY | 2018-12-23 06:03 | XMS REPORT ---
Author Author Migration, Doctor Organization [facility] Address Unknown Phone Unavailable Care Team Providers Care Bath Steward/Stewardess Name Role Phone Migration, Doctor Unavailable Unavailable PROBLEMS Type Condition ICD9-CM Code [id number] Code Onset Dates Condition Status SNOMED Code Problem Swelling of right hand M79.89 Active 801172907 Problem Anxiety F41.9 Active 83598609 Problem Family history of autoimmune disorder Z83.2 Active 167017425 Problem Hair loss L65.9 Active 87046644 ALLERGIES No Information ENCOUNTERS Encounter Location Date Diagnosis [place] [id number] [place] [address] Oct, [place] [address] [address] Aug, Anxiety F41.9 [facility] [address] [address] May, Fever, unspecified fever cause R50.9 ; Other viral agents as the cause of diseases classified elsewhere B97.89 and Acute upper respiratory infection, unspecified J06.9 [place] [id number] [place] [address] Mar, Lump R22.9 [facility] [id number] [place] [id number] November, Chest wall pain R07.89 and Community acquired pneumonia J18.9 [place] [address] [address] November, Viral upper respiratory tract infection J06.9 ; Encounter for immunization Z23 ; Hives L50.9 and Insect bites, initial encounter W57.XXXA [facility] [id number] [place] [id number] Sep, Encounter for dental examination and cleaning without abnormal findings Z01.20 [place] [id number] [place] [address] Aug, Upper respiratory tract infection, unspecified type 465.9 [address] rhinitis J30.9 [facility] [id number] [place] [address] Aug, Rash R21 [place] [address] [address] Aug, Hair loss L65.9 ; Raynauds phenomenon without gangrene I73.00 ; Family history of autoimmune disorder Z83.2 and Swelling of right hand M79.89 [place] [id number] [place] [address] Aug, Raynauds phenomenon without gangrene I73.00 ; Hair loss L65.9 ; Family history of autoimmune disorder Z83.2 and Swelling of right hand M79.89 [place] [id number] [place] [address] Aug, Raynauds phenomenon without gangrene I73.00 ; Hair loss L65.9 ; Family history of autoimmune disorder Z83.2 and Swelling of right hand M79.89 [place] [id number] [place] [address] Aug, [place] [id number] [place] [address] Dec, [place] [id number] [place] [address] Dec, [place] [address] [address] Dec, Constipation - functional 564.09 and Hair loss 704.00 [place] [id number] [place] [address] Dec, [place] [address] [place] [address] 14 Oct, 2014 [facility] [place] [facility] [address] [id number] [place] [address] Oct, [facility] [place] [facility] [address] [id number] [place] [address] Aug, [facility] [place] [facility] [address] [id number] [place] [address] Aug, [facility] [place] [facility] [address] [id number] [place] [address] Jul, [facility] [place] [facility] [address] [id number] [place] [address] Jul, [facility] [place] [facility] [address] [id number] [place] [address] Jun, [facility] [place] [facility] [address] [id number] [place] [address] Jun, [facility] [place] [facility] [address] [id number] [place] [address] Apr, [facility] [place] [facility] [address] [id number] [place] [address] Apr, [facility] [place] [facility] [address] [facility] [id number] [place] [address] Mar, [facility] [place] [facility] [address] [id number] [place] [address] Mar, [facility] [place] [facility] [address] [id number] [place] [address] Feb, [facility] [place] [facility] [address] [id number] [place] [address] Feb, [facility] [place] [facility] [address] [id number] [place] [address] Feb, [facility] [place] [facility] [address] [id number] [place] [address] Jul, [facility] [place] [facility] [address] [id number] [place] [address] Jul, [facility] [address] [id number] [place] [address] Feb, [facility] [address] [id number] [place] [address] November, [facility] [address] [id number] [place] [address] November, [facility] [address] [id number] [place] [address] November, [facility] [address] [id number] [place] [address] Aug, [facility] [address] [id number] [place] [address] Jul, [facility] [address] [id number] [place] [address] Jul, [facility] [address] [id number] [place] [address] Jul, [facility] [address] [id number] [place] [address] Jul, [facility] [address] [id number] [place] [address] Oct, [facility] [address] [id number] [place] [address] 24 Sep, 2011 [facility] [address] [id number] [place] [address] 20 Sep, 2011 [facility] [address] [id number] [place] [address] 13 Sep, 2011 [facility] [address] [id number] [place] [address] 07 Sep, 2011 [facility] [address] [id number] [place] [address] Jul, [facility] [address] [facility] [id number] [place] [address] Jul, [facility] [address] [facility] [id number] [address] Jul, [facility] [address] [facility] [id number] [place] [address] Jul, IMMUNIZATIONS No Known Immunizations SOCIAL HISTORY Never Assessed REASON FOR VISIT EMR[place] [place] PLAN OF CARE VITAL SIGNS MEDICATIONS Unknown Medications RESULTS No Results PROCEDURES No Known procedures INSTRUCTIONS MEDICATIONS ADMINISTERED No Known Medications MEDICAL (GENERAL) HISTORY Type Description Date Medical History Depressive disorder, not elsewhere classified Medical History [facility]
--- OUTSIDE RECORDS SUMMARY | 2018-12-23 06:03 | XMS REPORT ---
Author Author Migration, Doctor Organization [facility] Address Unknown Phone Unavailable Care Team Providers Care Mold Filling Operator Name Role Phone Migration, Doctor Unavailable Unavailable PROBLEMS Type Condition ICD9-CM Code ZBI10-GL Code Onset Dates Condition Status SNOMED Code Problem Swelling of right hand M79.89 Active 806677303 Problem Anxiety F41.9 Active 93600918 Problem Family history of autoimmune disorder Z83.2 Active 866452071 Problem Hair loss L65.9 Active 73368781 ALLERGIES No Information ENCOUNTERS Encounter Location Date Diagnosis [place] [id number] [place] [address] Oct, [place] [address] [address] Aug, Anxiety F41.9 [facility] [address] [address] May, Fever, unspecified fever cause R50.9 ; Other viral agents as the cause of diseases classified elsewhere B97.89 and Acute upper respiratory infection, unspecified J06.9 [place] [id number] [place] [address] Mar, Lump R22.9 [facility] [id number] [place] [address] [id number] November, Chest wall pain R07.89 and Community acquired pneumonia J18.9 [place] [address] [address] November, Viral upper respiratory tract infection J06.9 ; Encounter for immunization Z23 ; Hives L50.9 and Insect bites, initial encounter W57.XXXA [facility] [id number] [place] [id number] Sep, Encounter for dental examination and cleaning without abnormal findings Z01.20 [place] [id number] [place] [address] Aug, Upper respiratory tract infection, unspecified type 465.9 and Allergic rhinitis J30.9 [facility] [id number] [place] [address] Aug, Rash R21 [place] [address] [address] Aug, Hair loss L65.9 ; Raynauds phenomenon without gangrene I73.00 ; Family history of autoimmune disorder Z83.2 and Swelling of right hand M79.89 [place] [id number] [place] [address] Aug, Raynauds phenomenon without gangrene I73.00 ; Hair loss L65.9 ; Family history of autoimmune disorder Z83.2 and Swelling of right hand M79.89 [place] [id number] [place] [address] Aug, Raynauds phenomenon without gangrene I73.00 ; Hair loss L65.9 ; Family history of autoimmune disorder Z83.2 and Swelling of right hand M79.89 [place] [id number] [place] [address] Aug, [place] [id number] [place] [address] Dec, [place] [id number] [place] [address] Dec, [place] [address] [address] Dec, Constipation - functional 564.09 and Hair loss 704.00 [place] [id number] [place] [address] Dec, [place] [address] [place] [address] 14 Oct, 2014 [facility] [place] [facility] [address] [id number] [place] [address] Oct, [facility] [place] [facility] [address] [id number] [place] [address] Aug, [facility] [place] [facility] [address] [id number] [place] [address] Aug, [facility] [place] [facility] [address] [id number] [place] [address] Jul, [facility] [place] [facility] [address] [id number] [place] [address] Jul, [facility] [place] [facility] [address] [id number] [place] [address] Jun, [facility] [place] [facility] [address] [id number] [place] [address] Jun, [facility] [place] [facility] [address] [id number] [place] [address] Apr, [facility] [place] [facility] [address] [id number] [place] [address] Apr, [facility] [place] [facility] [address] [facility] [id number] [place] [address] Mar, [facility] [place] [facility] [address] [id number] [place] [address] Mar, [facility] [place] [facility] [address] [id number] [place] [address] Feb, [facility] [place] [facility] [address] [id number] [place] [address] Feb, [facility] [place] [facility] [address] [id number] [place] [address] Feb, [facility] [place] [facility] [address] [id number] [place] [address] Jul, [facility] [place] [facility] [address] [id number] [place] [address] Jul, [facility] [address] [id number] [place] [address] Feb, [facility] [address] [id number] [place] [address] November, [facility] [address] [id number] [place] [address] November, [facility] [address] [id number] [place] [address] November, [facility] [address] [id number] [place] [address] Aug, [facility] [address] [id number] [place] [address] Jul, [facility] [address] [id number] [place] [address] Jul, [facility] [address] [id number] [place] [address] Jul, [facility] [address] [id number] [place] [address] Jul, [facility] [address] [id number] [place] [address] Oct, [facility] [address] [id number] [place] [address] 24 Sep, 2011 [facility] [address] [id number] [place] [address] 20 Sep, 2011 [facility] [address] [id number] [place] [address] 13 Sep, 2011 [facility] [address] [id number] [place] [address] 07 Sep, 2011 [facility] [address] [id number] [place] [address] Jul, [facility] [address] [facility] [id number] [place] [address] Jul, [facility] [address] [facility] [id number] [address] Jul, [facility] [address] [facility]NOTE [address]] [id number] [place] [address] Jul, IMMUNIZATIONS No Known Immunizations SOCIAL HISTORY Never Assessed REASON FOR VISIT EMR-[facility] PLAN OF CARE VITAL SIGNS MEDICATIONS Unknown Medications RESULTS No Results PROCEDURES No Known procedures INSTRUCTIONS MEDICATIONS ADMINISTERED No Known Medications MEDICAL (GENERAL) HISTORY Type Description Date Medical History Depressive disorder, not elsewhere classified Medical History [facility]ization History 6 yrs [facility]
== END 2018-12-22 21:16 | disposition home or self-care (01) ==
LOC: EDUNIT# 18:42 → ER 18:43
DX: J40 Bronchitis, not specified as acute or chronic (principal); F41.9 Anxiety disorder, unspecified; F31.9 Bipolar disorder, unspecified; F17.210 Nicotine dependence, cigarettes, uncomplicated; Z86.19 Personal history of other infectious and parasitic diseases; Z82.49 Family history of ischemic heart disease and other diseases of the circulatory system; Z80.49 Family history of malignant neoplasm of other genital organs
CPT/HCPCS: 36415; 71046; 80053; 84703; 85025; 86141; 94640; 96361; 96374

== ENCOUNTER 2021-01-09 11:46 | Emergency (ER) | payer MEDICAID ==
[~2021-01-09] VITALS: Ht 152.4 cm; Wt 58.0 kg
[~2021-01-09 11:46] MED LIST changes: -ACET-77 PO; +ACET-78 PO; +ALBU2.5V4 INH; +PRD20T PO
[2021-01-09 11:55] VITALS: BP 115/77
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
[2021-01-09 12:25] LABS: BASOPHILS # (AUTO) 0.1 10^3/uL (0.0-0.1); BASOPHILS % (AUTO) 1 % (0-10); EOSINOPHILS # (AUTO) 0.1 10^3/uL (0.0-0.3); EOSINOPHILS % (AUTO) 0 % (0-10); HEMATOCRIT 43 % (35-52); HEMOGLOBIN 14.6 g/dL (11.5-16.0); LYMPHOCYTES # (AUTO) 2.6 10^3/uL (1.0-4.0); LYMPHOCYTES % (AUTO) 22 % (12-44); MEAN CORPUSCULAR HEMOGLOBIN 30 pg (25-34); MEAN CORPUSCULAR HGB CONC 34 g/dL (32-36); MEAN CORPUSCULAR VOLUME 88 fL (80-99); MEAN PLATELET VOLUME 11.9 fL (9.0-12.2); MONOCYTES # (AUTO) 0.7 10^3/uL (0.0-1.0); MONOCYTES % (AUTO) 6 % (0-12); NEUTROPHILS # (AUTO) 7.8 10^3/uL (1.8-7.8); NEUTROPHILS % (AUTO) 68 % (42-75); PLATELET COUNT 235 10^3/uL (130-400); WHITE BLOOD COUNT 11.5 10^3/uL (4.3-11.0)
[2021-01-09] MEDS ORDERED: LACTATED RINGERS 1,000 ML IV SCH (12:30)
[2021-01-09 12:34] LABS: ALBUMIN 3.4 GM/DL (3.2-4.5); CHLORIDE 99 MMOL/L (98-107); POTASSIUM 3.6 MMOL/L (3.6-5.0); SODIUM 132 MMOL/L (135-145)
[2021-01-09 12:36] LABS: CALCIUM 9.1 MG/DL (8.5-10.1)
[2021-01-09 12:37] LABS: GLUCOSE 107 MG/DL (70-105); TOTAL PROTEIN 7.1 GM/DL (6.4-8.2)
[2021-01-09 12:38] LABS: CARBON DIOXIDE 22 MMOL/L (21-32)
[2021-01-09 12:39] LABS: BILIRUBIN,TOTAL 0.3 MG/DL (0.1-1.0)
[2021-01-09 12:40] LABS: ALKALINE PHOSPHATASE 100 U/L (40-136); GFR ESTIMATED > 60
[2021-01-09 12:41] LABS: BUN/CREATININE RATIO 9
[2021-01-09 12:43] LABS: ALANINE AMINOTRANSFERASE 9 U/L (0-55)
== END 2021-01-09 13:26 | disposition home or self-care (01) ==
LOC: EDUNIT# 11:46 → ER 11:49
DX: O26.892 Other specified pregnancy related conditions, second trimester (principal); L55.0 Sunburn of first degree; Z79.52 Long term (current) use of systemic steroids; Z3A.19 19 weeks gestation of pregnancy
CPT/HCPCS: 36415; 80053; 83880; 85025

== ENCOUNTER → 2021-01-15 | Outpatient (CLI) | payer MEDICAID ==
--- NOTE | 2021-01-15 17:59 | Diagnostic Imaging Report ---
INDICATION: . TECHNIQUE: Multiple real-time grayscale images were obtained over the gravid uterus. COMPARISON: None. FINDINGS: A breech-positioned donald viable IUP is present. The anatomical survey was normal. Measurements correlate with an age 20 weeks 0 days. Sonographic date of confinement is 06/04/2021. Amniotic fluid volume appeared normal. The anterior placenta is unremarkable. No abruption or previa. The cervix is nondilated measuring a normal 4.6 cm in length. IMPRESSION: Breech-positioned donald viable IUP of 20 weeks 0 days with no pathological finding identified. Biometrical measurements are as follows: Biparietal 4.45 cm, age 19 weeks 4 days. Head circumference 17.47 cm, age 20 weeks 0 days. Abdominal circumference 14.96 cm, age 20 weeks 2 days. Femur length 3.09 cm, age 19 weeks 5 days. Sonographic estimate age: 20 weeks 0 days. Sonographic estimated date of delivery: 06/04/2021. Estimated Weight: 320 gm (+/- 47 gm). LMP percentile: 48%. heart rate: 140 beats per minute. number: 1 of 1. Dictated by: Dictated on workstation # [id number]
== END ==
LOC: RAD 15:15
PROVIDERS: ATTEND Obstetrics & Gynecology
DX: O32.1XX0 Maternal care for breech presentation, not applicable or unspecified (principal); Z3A.20 20 weeks gestation of pregnancy
CPT/HCPCS: 76805

== ENCOUNTER 2021-02-08 21:46 | Emergency (ER) | payer MEDICAID ==
[~2021-02-08] VITALS: Ht 152.4 cm; Wt 52.0 kg
[~2021-02-08 21:46] MED LIST changes: -SULF1TAB35 PO
--- NOTE | 2021-02-08 23:52 | ED General ---
General Chief Complaint: Respiratory Problems Stated Complaint: LOSS OF TASTE, COUGH,SOB,N/V Nursing Triage Note: Pt arrival to ER with complaint of SOA, Cough, Body Aches, Loss of Taste x3 days. Denies being around anyone with covid. Source of Information: Patient Exam Limitations: No Limitations History of Present Illness Date Seen by Provider: Feb 10, 2021 Time Seen by Provider: 21:48 Initial Comments This 20-year-old young lady presents to the emergency room with complaints of cough, myalgia, loss of taste, and shortness of breath for about 3 days. She denies any known Covid exposures. Vital signs are stable at this time. She also has nausea and vomiting which she associates with her first trimester . Allergies and Home Medications Allergies Coded Allergies: No Known Drug Allergies (Unverified , 11/14/11) Home Medications Albuterol Sulfate 2.5 Mg/3 Ml Vial.neb, 2.5 MG INH Q4H PRN for WHEEZING Prescribed by: EDOUARD LOZANO on 12/22/182055 Prednisone 20 Mg Tab, 40 MG PO DAILY Prescribed by: EDOUARD LOZANO on 12/22/182055 Patient Home Medication List Home Medication List Reviewed: Yes Review of Systems Review of Systems Constitutional: see HPI EENTM: no symptoms reported Respiratory: see HPI Cardiovascular: no symptoms reported Gastrointestinal: see HPI Genitourinary: no symptoms reported : Yes Musculoskeletal: see HPI Skin: no symptoms reported Psychiatric/Neurological: No Symptoms Reported Hematologic/Lymphatic: No Symptoms Reported Immunological/Allergic: no symptoms reported Past Rsjqtyf-Hkjhre-Vzbmog Hx Patient Social History Tobacco Use?: Yes Tobacco type used: Cigarettes Smoking Status: Current Everyday Smoker Use of E-Cig and/or Vaping dev: No Substance use?: No Alcohol Use?: No Pt feels they are or have been: No Immunizations Up To Date Tetanus Booster (TDap): Unknown PED Vaccines UTD: No Influenza Vaccine Up-to-Date: No; Not Current Seasonal Allergies Seasonal Allergies: No Past Medical History Surgeries: No Respiratory: No Cardiac: Yes (HSP) Neurological: No Reproductive Disorders: No Sexually Transmitted Disease: Yes (herpes) HIV/AIDS: No Genitourinary: No Gastrointestinal: No Musculoskeletal: No Endocrine: No HEENT: No Cancer: No Psychosocial: Yes Anxiety, Bipolar, Depression Integumentary: No Blood Disorders: No Adverse Reaction/Blood Tranf: No Family Medical History Asthma 19 MOTHER Cervical cancer 19 MOTHER Congenital heart disease G8 SISTER Diabetes mellitus G8 BROTHER Seizure disorder 19 MOTHER Physical Exam Vital Signs Vital Signs - First Documented 02/08/21 22:37 Temp 37.0 Pulse 112 Resp 20 B/P (MAP) 108/74 (85) Pulse Ox 97 O2 Delivery Room Air Capillary Refill : Less Than 3 Seconds Height, Weight, BMI Height: 5'0.00" Weight: 129lbs. 0.8oz. 58.193158km; 22.00 BMI Method:Stated General Appearance: No Apparent Distress, WD/WN HEENT: PERRL/EOMI, TMs Normal, Normal ENT Inspection, Pharynx Normal Neck: Normal Inspection Respiratory: Lungs Clear, Normal Breath Sounds, No Accessory Muscle Use Cardiovascular: Regular Rate, Rhythm, No Murmur Extremity: Normal Inspection Neurologic/Psychiatric: Oriented x3, No Motor/Sensory Deficits, Normal Mood/Aff ect Skin: Normal Color, Warm/Dry Progress/Results/Core Measures Suspected Sepsis SIRS Temperature: Pulse: 112 Respiratory Rate: 20 Blood Pressure 108 /74 Mean: 85 Results/Orders Lab Results Laboratory Tests Test 02/08/21 22:39 Range/Units Influenza Type A (RT-PCR) Not Detected Not Detecte Influenza Type B (RT-PCR) Not Detected Not Detecte SARS-CoV-2 RNA (RT-PCR) Not Detected Not Detecte My Orders Orders - NATACHA LANDERS MD Covid 19 Inhouse Test (02/08/21 21:48) Influenza A And B By Pcr (02/08/21 21:48) Vital Signs/I&O 02/08/21 02/09/21 22:37 05:01 Temp 37.0 Pulse 112 102 Resp 20 20 B/P (MAP) 108/74 (85) 100/73 Pulse Ox 97 97 O2 Delivery Room Air Room Air Capillary Refill : Less Than 3 Seconds Blood Pressure Mean: 85 Progress Note : Progress Note Vital signs are stable, influenza and Covid screening were negative. See discharge instructions. Departure Impression Primary Impression: Upper respiratory infection Qualified Codes: J06.9 - Acute upper respiratory infection, unspecified Disposition: 01 HOME, SELF-CARE Condition: Stable Departure-Patient Inst. Referrals: NO,LOCAL PHYSICIAN (PCP/Family) Primary Care Physician Patient Instructions: Viral Upper Respiratory Infection, Adult (DC) Add. Discharge Instructions: You may take Tylenol (acetaminophen) up to 1000 mg every 6 hours as needed for fever or pain. You may use other [id number]-[id number] medications as directed by your wind tunnel mechanic for symptom management. Isolate yourself at home until free of fever for at least 24 hours without the use of fever reducing medications. Call with questions or concerns. Return to the ER if you have worsening symptoms. All discharge instructions reviewed with patient and/or family. Voiced understanding. NATACHA LANDERS MD Feb 08, 2021 23:52
[2021-02-09 05:01] VITALS: BP 100/73
== END 2021-02-08 23:55 | disposition home or self-care (01) ==
LOC: EDUNIT# 21:46 → ER 21:48
DX: J06.9 Acute upper respiratory infection, unspecified (principal); F17.210 Nicotine dependence, cigarettes, uncomplicated; Z20.822 Contact with and (suspected) exposure to COVID-19
CPT/HCPCS: 87636; 99282

== ENCOUNTER → 2021-03-31 | Outpatient (CLI) | payer MEDICAID ==
--- NOTE | 2021-03-31 14:06 | Diagnostic Imaging Report ---
INDICATION: Small for dates. TECHNIQUE: Multiple real-time grayscale images were obtained over the gravid uterus. COMPARISON: None FINDINGS: There is a single live fetus in a cephalic presentation. heart rate was recorded 128 bpm. Placenta is anterior. Amniotic fluid volume is 15.2 cm. Cervical length is 4.0 cm. Biometrical measurements are as follows: Biparietal 7.57 cm, age 30 weeks 3 days. Head circumference 28.16 cm, age 31 weeks 0 days. Abdominal circumference 25.61 cm, age 29 weeks 6 days. Femur length 5.42 cm, age 28 weeks 5 days. Sonographic estimate age: 30 weeks 0 days. Sonographic estimated date of delivery: 06/09/2021. Estimated Weight: 1417 gm (+/- 207 gm). LMP percentile: 12%. heart rate: 128 beats per minute. number: 1 of 1. IMPRESSION: Single live IUP at 30 weeks 0 days gestational age with estimated date of confinement sonographically of 06/09/2021. Dictated by: Dictated on workstation # [id number]
== END ==
LOC: RAD 10:00
PROVIDERS: ATTEND Obstetrics & Gynecology
DX: O36.5939 Maternal care for other known or suspected poor fetal growth, third trimester, other fetus (principal); Z3A.30 30 weeks gestation of pregnancy
CPT/HCPCS: 76816

== ENCOUNTER 2021-04-27 10:15 | Outpatient (RCR) | payer MEDICAID ==
--- NOTE | 2021-04-27 16:22 | Diagnostic Imaging Report ---
INDICATION: Small for gestational age. 34 weeks 3 days gestation by LMP. TECHNIQUE: Multiple real-time grayscale images were obtained over the gravid uterus. COMPARISON: 03/31/2021 FINDINGS: Presentation is cephalic. The umbilical cord demonstrates continuous diastolic flow. The amniotic fluid index measures 20.5 cm. The placenta is anterior without evidence of previa. Biophysical profile score is 8 out of 8. Biometrical measurements are as follows: Biparietal 7.78 cm, age 31 weeks 2 days. Head circumference 28.53 cm, age 31 weeks 3 days. Abdominal circumference 27.60 cm, age 31 weeks 5 days. This is symmetric with the other measurements. Femur length 6.09 cm, age 31 weeks 5 days. Sonographic estimate age: 31 weeks 4 days. Sonographic estimated date of delivery: 06/25/2021. Estimated Weight: 1796 gm (+/- 262 gm). LMP percentile: 2%. heart rate: 130 beats per minute. number: 1 of 1. IMPRESSION: 1. Single live intrauterine gestation measuring at 31 weeks and 4 days, which is out of range of the clinical dates, and in the 2nd percentile, concerning for symmetric intrauterine growth restriction. 2. Biophysical profile score of 8 out of 8. Called and faxed to Dr. Dai Summers at 4:18 p.m. by edel. Dictated by: Dictated on workstation # [id number]
[2021-04-30] MEDS ORDERED: PREN-37 PO (12:33)
[2021-04-30] MEDS ORDERED: DOXY25TA56 PO (12:33)
[2021-05-03] MEDS ORDERED: PNV11TAB5 PO (14:38)
[2021-05-03] MEDS ORDERED: WTCHGPD TOP (15:47)
[2021-05-03] MEDS ORDERED: BENZ78AE5 TP (15:47)
[2021-05-20] MEDS ORDERED: DOCU100C37 PO (10:55)
[2021-05-20] MEDS ORDERED: BENZ78AE5 TP (10:55)
[2021-05-20] MEDS ORDERED: IBUP-844 PO (10:55)
[2021-05-20] MEDS ORDERED: OXYC1TAB11 PO (14:49)
== END 2021-07-23 | disposition home or self-care (01) ==
LOC: RAD 10:15
PROVIDERS: ATTEND Obstetrics & Gynecology
DX: O36.5939 Maternal care for other known or suspected poor fetal growth, third trimester, other fetus (principal); Z3A.31 31 weeks gestation of pregnancy
CPT/HCPCS: 76805; 76819

== ENCOUNTER 2021-04-30 12:09 | Outpatient (CLI) | payer MEDICAID ==
[~2021-04-30] VITALS: Ht 152.4 cm; Wt 62.8 kg
[2021-04-30 12:26] VITALS: BP 109/69
[2021-04-30 12:30] VITALS: BP 109/69
[2021-04-30] MEDS ORDERED: DOXY25TA56 PO (12:33)
[2021-04-30] MEDS ORDERED: PREN-37 PO (12:33)
[2021-04-30 12:43] LABS: BILIRUBIN,URINE NEGATIVE (NEGATIVE); CLARITY,URINE CLEAR; COLOR,URINE YELLOW; GLUCOSE, URINE (UA) NEGATIVE (NEGATIVE); KETONES,URINE NEGATIVE (NEGATIVE); LEUKOCYTE ESTERASE ,URINE NEGATIVE (NEGATIVE); NITRITE,URINE NEGATIVE (NEGATIVE); PROTEIN,URINE NEGATIVE (NEGATIVE)
[2021-04-30 13:08] LABS: BACTERIA,URINE TRACE /HPF; SQUAMOUS EPITHELIAL CELL,UR 0-2 /HPF; WBC,URINE 0-2 /HPF
[2021-04-30] MEDS ORDERED: BETAMETHASONE ACE/NA PHOS 6 MG/ML (CELESTONE SOLUSPAN) ONE (13:25)
[2021-04-30] MEDS ORDERED: BETAMETHASONE ACE/NA PHOS 6 MG/ML (CELESTONE SOLUSPAN) IM SCH (13:30)
[2021-04-30 13:41] VITALS: BP 109/69
--- NOTE | 2021-05-03 08:20 | Physician Query-Final Dx ---
KARL OLSEN 05/03/21 0820: Clinic Account Progress/Dx Physician Query: Please give diagnosis Please include # weeks gestation Date of Service Apr 30, 2021 at 12:09 ROBIN ALFREDO DO 05/03/21 0942: Clinic Account Progress/Dx DIAGNOSIS: Diagnosis 35 week IUP IUGR Irregular contractions KARL OLSEN May 03, 2021 08:20 ROBIN ALFREDO DO May 03, 2021 09:42
== END 2021-04-30 13:41 | disposition home or self-care (01) ==
LOC: LDRP 12:09 → WSo 12:09
PROVIDERS: ATTEND Obstetrics & Gynecology
DX: O60.03 Preterm labor without delivery, third trimester (principal); Z3A.34 34 weeks gestation of pregnancy
CPT/HCPCS: 81000; 96372; 99213

== ENCOUNTER 2021-05-03 14:00 | Outpatient (CLI) | payer MEDICAID ==
[~2021-05-03] VITALS: Ht 152.5 cm; Wt 62.8 kg
[~2021-05-03 14:00] MED LIST changes: +DOXY25TA56 PO; +PREN-37 PO
[2021-05-03 14:23] VITALS: BP 120/76
[2021-05-03] MEDS ORDERED: PNV11TAB5 PO (14:38)
[2021-05-03] MEDS ORDERED: WITCH HAZEL(TUCKS) 40 EA JAR TOP PRN (15:15)
[2021-05-03] MEDS ORDERED: BENZOCAINE/MENTHOL (DERMOPLAST) 56 ML CAN TP PRN (15:15)
[2021-05-03] MEDS ORDERED: BENZ78AE5 TP (15:47)
[2021-05-03] MEDS ORDERED: WTCHGPD TOP (15:47)
--- NOTE | 2021-05-03 17:25 | Diagnostic Imaging Report ---
INDICATION: IUGR TECHNIQUE: Multiple real-time grayscale images were obtained over the gravid uterus. COMPARISON: None FINDINGS: There is a single living intrauterine in cephalic presentation. The placenta is anterior, not low. GOPI is 13.7. heart rate was 135 bpm. Composite measurements correspond to a gestational age of 34 weeks and 6 days. Estimated weight is 2403 g which is 23rd percentile. Biometrical measurements are as follows: Biparietal 8.51 cm, age 34 weeks 3 days. Head circumference 31.83 cm, age 35 weeks 6 days. Abdominal circumference 29.91 cm, age 34 weeks 0 days. Femur length 6.73 cm, age 34 weeks 5 days. Sonographic estimate age: 34 weeks 6 days. Sonographic estimated date of delivery: 06/08/2021. Estimated Weight: 2403 gm (+/- 351 gm). LMP percentile: 23%. heart rate: 135 beats per minute. number: 1 of 1. IMPRESSION: There appears to be normal interval growth compared to previous ultrasound. The ultrasound from 01/15/2021 predicted an estimated date of delivery of 06/04/2021. By today's measurements, the delivery date would be 06/08/2021. There are no gross anomalies seen. biophysical profile score was 8 out of 8. Dictated by: Dictated on workstation # [id number]
--- NOTE | 2021-05-04 09:31 | Physician Query-Final Dx ---
KARL OLSEN 05/04/21930: Clinic Account Progress/Dx Physician Query: Please give diagnosis Please include # weeks gestation Date of Service May 03, 2021 at 14:00 HEMA ECHOLS DO 05/04/212051: Clinic Account Progress/Dx DIAGNOSIS: Diagnosis 35 weeks vaginal pain contractions IUGR KARL OLSEN May 04, 2021 09:31 HEMA ECHOLS DO May 04, 2021 20:52
== END 2021-05-03 16:17 | disposition home or self-care (01) ==
LOC: WSo 14:00 → LDRP 14:19 → WSo 14:19
PROVIDERS: ATTEND Obstetrics & Gynecology
DX: O36.5930 Maternal care for other known or suspected poor fetal growth, third trimester, not applicable or unspecified (principal); O62.9 Abnormality of forces of labor, unspecified; O26.893 Other specified pregnancy related conditions, third trimester; R10.2 Pelvic and perineal pain; Z3A.35 35 weeks gestation of pregnancy
CPT/HCPCS: 76805; 76819; 99213

== ENCOUNTER 2021-05-19 06:58 | Inpatient (IN) | payer MEDICAID ==
[~2021-05-19] VITALS: Ht 152.4 cm; Wt 65.4 kg
[2021-05-19] VITALS (30 sets, daily range): BP systolic 100–120; BP diastolic 55–80
[~2021-05-19 06:58] MED LIST changes: +BENZ78AE5 TP; +PNV11TAB5 PO; +WTCHGPD TOP
[2021-05-19] MEDS ORDERED: D5 LR IV SOLUTION 1,000 ML IV SCH (07:45)
[2021-05-19] MEDS ORDERED: MINERAL OIL CONCENTRATE 99.9% 15 ML UDC TOP PRN (07:45)
[2021-05-19 08:09] LABS: BASOPHILS # (AUTO) 0.1 10^3/uL (0.0-0.1); BASOPHILS % (AUTO) 1 % (0-10); EOSINOPHILS # (AUTO) 0.1 10^3/uL (0.0-0.3); EOSINOPHILS % (AUTO) 1 % (0-10); HEMATOCRIT 35 % (35-52); HEMOGLOBIN 11.9 g/dL (11.5-16.0); LYMPHOCYTES # (AUTO) 2.4 10^3/uL (1.0-4.0); LYMPHOCYTES % (AUTO) 16 % (12-44); MEAN CORPUSCULAR HEMOGLOBIN 30 pg (25-34); MEAN CORPUSCULAR HGB CONC 34 g/dL (32-36); MEAN CORPUSCULAR VOLUME 87 fL (80-99); MEAN PLATELET VOLUME 12.5 fL (9.0-12.2); MONOCYTES # (AUTO) 0.8 10^3/uL (0.0-1.0); MONOCYTES % (AUTO) 5 % (0-12); NEUTROPHILS # (AUTO) 11.2 10^3/uL (1.8-7.8); NEUTROPHILS % (AUTO) 74 % (42-75); PLATELET COUNT 212 10^3/uL (130-400)
[2021-05-19 08:48] LABS: ATYPICAL LYMPHOCYTES 1 %; BAND NEUTROPHILS 4 %; BASOPHILS % (MANUAL) 1 %; EOSINOPHILS % (MANUAL) 1 %; LYMPHOCYTES % (MANUAL) 19 %; MONOCYTES % (MANUAL) 3 %; NEUTROPHILS % (MANUAL) 71 %; RBC MORPH NORMAL
--- NOTE | 2021-05-19 09:12 | History & Physical-OB ---
OB - Chief Complaint & HPI Date/Time Date of Admission: Date of Admission: May 19, 2021 at 06:58 Date seen by a Provider: May 20, 2021 Time Seen by a Provider: 08:45 Chief Complaint/History OB-Reason for Admission/Chief: Induction of Labor Hx : 3 Hx Para: 2 Expected Date of Delivery: Jun 05, 2021 Gestational Age in Weeks: 37 Gestational Age in Days: 4 Indication for induction: other (IUGR. History of IUGR x 2. This fetus has been near the 10 %ile. due to < 3 %ile at recent US, she was given betam ethasone for lung maturity with anticipation of early delivery. testing has been reassuring and repeat US was larger suggesting that the earlier US may have been incorrect. Plan was to deliver at 37 weeks for severe IUGR) Admission Nurse Assessment Rev: Yes History of Labs O+/- HBsAg - Hep C - HIV - VDRL NR Rub I GBS - Allergies and Home Medications Allergies Coded Allergies: No Known Drug Allergies (Unverified , 11/14/11) Patient Home Medication List Home Medication List Reviewed: No Benzocaine/Menthol (Dermoplast Pain Relieving [place]) 78 Gm Aerosol, 0 EA TP TID PRN for Hemorroids Prescribed by: AKIN LAUREANO on 05/20/21 1055 Docusate Sodium (Docusate Sodium) 100 Mg Capsule, 100 MG PO BID Prescribed by: AKIN LAUREANO on 05/20/21 1055 Doxylamine Succinate (Unisom) 25 Mg Tablet, 25 MG PO DAILY, (Reported) Entered as Reported by: APARNA HERNANDEZ on 04/30/21 1233 Ibuprofen (Ibu) 600 Mg Tablet, 600 MG PO Q6H Prescribed by: AKIN LAUREANO on 05/20/21 1055 Trb284/FA/Omega3/Dha/Fish Oil ( Gummies) 1 Each Tab.chew, 2 EACH PO DAILY, (Reported) Entered as Reported by: LISBET ORITZ on 05/03/21 1438 Witch Sonia/Glycerin (A.e.r Pads) 40 Ea Pad, 0 EA TOP QID PRN for Hemorrhoids Prescribed by: LISBET ORTIZ on 05/03/21 1547 OB - History Hx of Present Ultrasounds: Normal mid trimester US, Abnormal US findings (IUGR) Obstetrical Complications: Growth Restriction Medical Complications: None Information Induced Hypertension: No Maternal Gestational Diabetes: No Hemorrhage: No Obstetrical History Hx : 3 Hx Para: 2 Hx # Term Pregnancies: 1 Hx # Pregnancies: 1 Number of Living Children: 2 Hx Termination: No Hx Multiple Gestation: No Hx Ectopic : No Hx Stillbirth: No Hx Complication: No Hx Induced Hypertens: No Hx Maternal Gestational Diabet: No Hx Hemorrhage: No Delivery History Hx Dystocia: No Hx Forceps Assisted Delivery: No Hx Vacuum Extraction Assisted: No Hx Placenta Abnormality: No Hx Distress: No Hx Large For Gestational Age I: No Hx Small for Gestational Age I: Yes Hx Section: No Hx Vaginal Delivery Post C-Sec: No Hx Blood Disorders: Yes (Henoch-Schnlein purpura) Adverse Rxn to Tranfusion: No Patient Past Medical History Henoch Schoenlein Purpura Social History/Family History Alcohol Use: Denies Use Recreational Drug Use: No Smoking Cessation: Current every day smoker 2nd Hand Smoke Exposure: Yes Immunizations Hepatitis A: Yes Hepatitis B: Yes Tetanus Booster (TDap): Less than 5yrs (03/26/21) Date of Influenza Vaccine: May 11, 2017 Rubella: immune RPR/VDRL: Negative GBS Status: Negative HBsAG: Negative OB - Admission Exam Labs Laboratory Tests Test 05/19/21 08:00 Range/Units White Blood Count 15.0 H 4.3-11.0 10^3/uL Red Blood Count 4.04 3.80-5.11 10^6/uL Hemoglobin 11.9 11.5-16.0 g/dL Hematocrit 35 35-52 % Mean Corpuscular Volume 87 80-99 fL Mean Corpuscular Hemoglobin 30 25-34 pg Mean Corpuscular Hemoglobin Concent 34 32-36 g/dL Red Cell Distribution Width 13.2 10.0-14.5 % Platelet Count 212 130-400 10^3/uL Mean Platelet Volume 12.5 H 9.0-12.2 fL Immature Granulocyte % (Auto) 3 % Neutrophils (%) (Auto) 74 42-75 % Lymphocytes (%) (Auto) 16 12-44 % Monocytes (%) (Auto) 5 0-12 % Eosinophils (%) (Auto) 1 0-10 % Basophils (%) (Auto) 1 0-10 % Neutrophils # (Auto) 11.2 H 1.8-7.8 10^3/uL Lymphocytes # (Auto) 2.4 1.0-4.0 10^3/uL Monocytes # (Auto) 0.8 0.0-1.0 10^3/uL Eosinophils # (Auto) 0.1 0.0-0.3 10^3/uL Basophils # (Auto) 0.1 0.0-0.1 10^3/uL Immature Granulocyte # (Auto) 0.5 H 0.0-0.1 10^3/uL Neutrophils % (Manual) 71 % Lymphocytes % (Manual) 19 % Monocytes % (Manual) 3 % Eosinophils % (Manual) 1 % Basophils % (Manual) 1 % Band Neutrophils 4 % Atypical Lymphocytes 1 % Blood Morphology Comment NORMAL HEMA ECHOLS DO May 19, 2021 09:12
[2021-05-19] MEDS ORDERED: fentaNYL 2 mcg/ml BUPIVA 0.125 100 ML ONE (09:17)
[2021-05-19] MEDS ORDERED: BUPIVACAINE 0.25% 30 ML (SENSORCAINE) VIAL ONE (09:24)
[2021-05-19] MEDS ORDERED: fentaNYL INJ 100 MCG/2 ML AMP ONE (09:24)
[2021-05-19] MEDS ORDERED: OXYTOCIN PRE-MIX DRIP 500 ML IV SCH ×2 (09:30→13:45)
[2021-05-19] MEDS ORDERED: CATHETER FLUSH 10 ML SYR IV PRN (09:30)
[2021-05-19] MEDS ORDERED: ONDANSETRON 4 MG/2 ML (SDV) Z0FRAN IV PRN (09:30)
[2021-05-19] MEDS ORDERED: diphenhydrAMINE 50 MG/ML INJ (BENADRYL) IV PRN (09:30)
[2021-05-19] MEDS ORDERED: LACTATED RINGERS 1,000 ML IV ONE (09:30)
[2021-05-19] MEDS ORDERED: NALOXONE 0.4 MG/ML 1 ML (NARCAN) VIAL IV PRN ×2 (09:30→13:45)
[2021-05-19] MEDS ORDERED: fentaNYL 2 mcg/ml BUPIVA 0.125 100 ML IV SCH (09:30)
--- NOTE | 2021-05-19 13:40 | OB Labor & Delivery Record ---
Vag Delivery Note Vag Delivery Note Date of Delivery: 05/19/21 Preoperative Diagnosis: Franny Jain is a 20 /Para 3 /2, Gestational Age 37 4/7 weeks with IUGR Postoperative Diagnosis: Same Surgeon: HEMA ECHOLS Anesthesia: epidural Delivery Type: stable Findings: Viable female , apgars pending, weight pending Lacerations: none Intact placenta with 3 vessel cord. No nuchal cord, body cord or shoulder dystocia Estimated Blood Loss: 100 ml Complications: None Condition: Stable Description of Procedure: The patient is a 20 year old female who presented at 37 4/7 weeks for induction of labor due to IUGR. She was admitted and informed consent was obtained. Her labor course was remarkable for AROM and pitocin augmentation. She progressed to complete dilatation and began to push. She was then set up for delivery. The infant's head was delivered atraumatically in the GABI position/hand presentation. The shoulders and remainder of the 's body were then delivered without difficulty. Upon delivery, the head was held below the level of the perineum and the mouth and nares were bulb suctioned. The cord was doubly clamped and cut and the was handed off to the pediatric staff. An intact placenta with 3-vessel cord delivered via [place] and there was found to be minimal bleeding.~ Vigorous fundal massage was performed and the fundus was found to be firm. IV oxytocin was given. Examination of the vagina and perineum revealed no lacerations. Following the delivery, sponge, instrument and needle counts were correct. Mom and baby were both in stable condition in the labor suite. Vitals - Labs Labs Laboratory Tests 05/19/21 08:00: White Blood Count 15.0H, Red Blood Count 4.04, Hemoglobin 11.9, Hematocrit 35, Mean Corpuscular Volume 87, Mean Corpuscular Hemoglobin 30, Mean Corpuscular Hemoglobin Concent 34, Red Cell Distribution Width 13.2, Platelet Count 212, Mean Platelet Volume 12.5H, Immature Granulocyte % (Auto) 3, Neutrophils (%) (Auto) 74, Lymphocytes (%) (Auto) 16, Monocytes (%) (Auto) 5, Eosinophils (%) (Auto) 1, Basophils (%) (Auto) 1, Neutrophils # (Auto) 11.2H, Lymphocytes # (Auto) 2.4, Monocytes # (Auto) 0.8, Eosinophils # (Auto) 0.1, Basophils # (Auto) 0.1, Immature Granulocyte # (Auto) 0.5H, Neutrophils % (Manual) 71, Lymphocytes % (Manual) 19, Monocytes % (Manual) 3, Eosinophils % (Manual) 1, Basophils % (Manual) 1, Band Neutrophils 4, Atypical Lymphocytes 1, Blood Morphology Comment NORMAL HEMA ECHOLS DO May 19, 2021 13:40
[2021-05-19] MEDS ORDERED: BENZOCAINE/MENTHOL (DERMOPLAST) 56 ML CAN TP PRN (13:45)
[2021-05-19] MEDS ORDERED: MEASLES,MUMPS,RUBELLA 1 EA INJ SQ ONE (13:45)
[2021-05-19] MEDS ORDERED: TETANUS,DIPTH,PERTUSS P/F (BOOSTRIX) 0.5 ML VIAL IM ONE (13:45)
[2021-05-19] MEDS ORDERED: WITCH HAZEL(TUCKS) 40 EA JAR TOP PRN (13:45)
[2021-05-19] MEDS ORDERED: CATHETER FLUSH 10 ML SYR IV SCH ×2 (14:00)
[2021-05-19] MEDS: ACETAMINOPHEN 500 MG TAB (TYLENOL) PO SCH (14:03)
[2021-05-19] MEDS: IBUPROFEN 600 MG (MOTRIN) TAB PO SCH ×2 (14:03→20:09)
[2021-05-19] MEDS: DOCUSATE SODIUM 100 MG (COLACE) CAP PO SCH (20:09)
[2021-05-20] VITALS: BP 113/70
[2021-05-20] MEDS: ACETAMINOPHEN 500 MG TAB (TYLENOL) PO SCH ×2 (00:57→09:47)
[2021-05-20] MEDS: IBUPROFEN 600 MG (MOTRIN) TAB PO SCH ×3 (01:44→14:24)
[2021-05-20 04:00] VITALS: BP 106/72
[2021-05-20] MEDS ORDERED: PRENATAL VITAMIN 1 EA TAB PO SCH (07:00)
[2021-05-20 07:10] LABS: MEAN PLATELET VOLUME 13.1 fL (9.0-12.2); NEUTROPHILS % (AUTO) 58 % (42-75)
[2021-05-20 07:12] LABS: BASOPHILS # (AUTO) 0.1 10^3/uL (0.0-0.1); BASOPHILS % (AUTO) 1 % (0-10); EOSINOPHILS # (AUTO) 0.1 10^3/uL (0.0-0.3); EOSINOPHILS % (AUTO) 1 % (0-10); HEMATOCRIT 34 % (35-52); HEMOGLOBIN 11.4 g/dL (11.5-16.0); LYMPHOCYTES # (AUTO) 3.5 10^3/uL (1.0-4.0); LYMPHOCYTES % (AUTO) 30 % (12-44); MEAN CORPUSCULAR HEMOGLOBIN 30 pg (25-34); MEAN CORPUSCULAR HGB CONC 33 g/dL (32-36); MEAN CORPUSCULAR VOLUME 89 fL (80-99); MONOCYTES # (AUTO) 0.7 10^3/uL (0.0-1.0); MONOCYTES % (AUTO) 6 % (0-12); NEUTROPHILS # (AUTO) 6.9 10^3/uL (1.8-7.8); PLATELET COUNT 200 10^3/uL (130-400); WHITE BLOOD COUNT 11.8 10^3/uL (4.3-11.0)
[2021-05-20 08:00] VITALS: BP 116/67
[2021-05-20] MEDS ORDERED: FERROUS SULF 325 MG (IRON) TAB PO SCH (09:00)
--- NOTE | 2021-05-20 09:46 | Postpartum Progress Note ---
Note Note Day # 1 Subjective: Patient is without complaints. Ambulating, voiding. Tolerating a regular diet without nausea or vomiting. Normal lochia. Pain is well controlled with oral pain medications. Breast feeding. Objective: Physical Exam: General - Alert and oriented, no apparent distress Abdomen - Soft, appropriately tender to palpation, non-distended, fundus firm at umbilicus Extremities - no edema, negative Blade's bilaterally Assessment: Post- day # 1, status post vaginal delivery. Recovering well, hemodynamically stable Acute blood loss anemia Plan: Routine care. Encourage breast feeding. Encourage ambulation. Ferrous sulfate supplementation. Plan for discharge this afternoon/evening Vitals - Labs Vital Signs - I&O Vital Signs Date Time Temp Pulse Resp B/P (MAP) Pulse Ox O2 Delivery O2 Flow Rate FiO2 05/20/21 04:00 36.2 83 18 106/72 (83) 98 Room Air 05/20/21 00:00 36.6 97 16 113/70 (84) 98 Room Air 05/19/21 20:00 36.2 89 18 120/80 (93) 97 Room Air 05/19/21 15:24 92 20 103/59 (74) Room Air 05/19/21 14:53 103 20 120/66 (84) Room Air 05/19/21 14:23 91 20 111/72 (85) Room Air 05/19/21 14:05 91 20 101/58 (72) Room Air 05/19/21 13:47 99 20 113/63 (80) Room Air 05/19/21 13:35 100 20 112/66 (81) Room Air 05/19/21 13:20 93 20 117/72 (87) 99 Room Air 05/19/21 12:50 83 20 111/71 (84) 98 Room Air 05/19/21 12:35 82 20 108/68 (81) 97 Room Air 05/19/21 12:20 37.3 89 20 107/67 (80) 95 Room Air 05/19/21 12:00 80 20 100/58 (72) 96 Room Air 05/19/21 11:45 79 20 101/64 (76) 95 Room Air 05/19/21 11:30 85 20 101/59 (73) 95 Room Air 05/19/21 11:15 37.3 78 20 104/57 (73) 95 Room Air 05/19/21 11:00 89 20 114/56 (75) 97 Room Air 05/19/21 10:45 87 20 108/55 (72) 97 Room Air 05/19/21 10:30 83 20 107/68 (81) 93 Room Air 05/19/21 10:15 90 20 108/65 (79) 98 Room Air 05/19/21 10:09 102 20 119/71 (87) 96 Room Air 05/19/21 10:05 84 20 108/60 (76) 94 Room Air 05/19/21 10:00 95 20 102/62 (75) 94 Room Air 05/19/21 09:53 105 20 104/64 (77) 96 Room Air 05/19/21 09:49 98 20 100/56 (71) 96 Room Air I & O 05/20/21 06:59 Intake Total 3450 ml Balance 3450 ml Labs Laboratory Tests 05/20/21 05:55: White Blood Count 11.8H, Red Blood Count 3.86, Hemoglobin 11.4L, Hematocrit 34L, Mean Corpuscular Volume 89, Mean Corpuscular Hemoglobin 30, Mean Corpuscular Hemoglobin Concent 33, Red Cell Distribution Width 13.4, Platelet Count 200, Mean Platelet Volume 13.1H, Immature Granulocyte % (Auto) 5, Neutrophils (%) (Auto) 58, Lymphocytes (%) (Auto) 30, Monocytes (%) (Auto) 6, Eosinophils (%) (Auto) 1, Basophils (%) (Auto) 1, Neutrophils # (Auto) 6.9, Lymphocytes # (Auto) 3.5, Monocytes # (Auto) 0.7, Eosinophils # (Auto) 0.1, Basophils # (Auto) 0.1, Immature Granulocyte # (Auto) 0.6H, Percent Immature Platelet Fraction 12.2H AKIN LAUREANO APRN May 20, 2021 09:46
[2021-05-20] MEDS: DOCUSATE SODIUM 100 MG (COLACE) CAP PO SCH (09:47)
[2021-05-20] MEDS ORDERED: IBUP-844 PO (10:55)
[2021-05-20] MEDS ORDERED: DOCU100C37 PO (10:55)
[2021-05-20] MEDS ORDERED: BENZ78AE5 TP (10:55)
--- NOTE | 2021-05-20 10:57 | Discharge Inst-Women's Service ---
Discharge Inst-Women's Serv Depart Medication/Instructions New, Converted or Re-Newed RX: Transmitted to Pharmacy Problems Reviewed?: Yes Consults/Follow Up Additional Follow Up: Yes Orders/Referrals 6wk PP appt Activity Activity: Activity as Tolerated Driving Instructions: No Driving for 1 Week NO SMOKING: NO SMOKING Nothing Inside Vagina: No Douching, No [place], No Tampons Diet Discharge Diet: No Restrictions Symptoms to Report to : Pain Increased, Fever Over 101 Degrees F, Vaginal Bleeding Increase For Any Problems or Questions: Contact Your Physician AKIN LAUREANO APRN May 20, 2021 10:57
[2021-05-20 12:20] VITALS: BP 103/59
--- NOTE | 2021-05-20 13:44 | Anesthesia-Regional Post-Op ---
Regional Patient Condition Mental Status: Alert, Oriented x3 Circulation: Same as Pre-Op Headache: Absent Sensation: Full Recovery Motor Block: Absent Post Op Complications Complications None Follow Up Care/Instructions Patient Instructions None needed. Anesthesia/Patient Condition Patient is doing well, no complaints, stable vital signs, no apparent adverse anesthesia problems. No complications reported per nursing. SEN CORONADO CRNA May 20, 2021 13:44
[2021-05-20] MEDS ORDERED: OXYC1TAB11 PO (14:49)
== END 2021-05-20 14:40 | disposition home or self-care (01) | DRG 806 ==
LOC: LDRP 06:58
PROVIDERS: ADMIT Obstetrics & Gynecology; ATTEND Obstetrics & Gynecology
PROC: 10E0XZZ Delivery of Products of Conception, External Approach (ICD-10-PCS; principal; 2021-05-19)
PROC: 10907ZC Drainage of Amniotic Fluid, Therapeutic from Products of Conception, Via Natural or Artificial Opening (ICD-10-PCS; 2021-05-19)
DX: O36.5930 Maternal care for other known or suspected poor fetal growth, third trimester, not applicable or unspecified (principal); D62 Acute posthemorrhagic anemia; Z37.0 Single live birth; Z3A.37 37 weeks gestation of pregnancy; O99.334 Smoking (tobacco) complicating childbirth; F17.210 Nicotine dependence, cigarettes, uncomplicated; O90.81 Anemia of the puerperium
CPT/HCPCS: 36415; 85007; 85025; 85027; 86850; 86900; 86901

== ENCOUNTER → 2022-02-03 | Outpatient (CLI) | payer MEDICAID ==
[~2022-02-03] MED LIST changes: +IBUP-844 PO; +OXYC1TAB11 PO
--- NOTE | 2022-02-03 13:00 | Diagnostic Imaging Report ---
INDICATION: survey. TECHNIQUE: Multiple real-time grayscale images were obtained over the gravid uterus. COMPARISON: None. FINDINGS: There is a single live fetus in a variable presentation. heart rate was recorded at 139 BPM. Placenta is posterior. Amniotic fluid volume is normal. Cervical length is 4.2 cm. kidneys, bladder, and stomach are unremarkable. There is a four-chamber heart. There is a three-vessel cord with normal insertion. spine is unremarkable. brain anatomy is somewhat limited due to position. Biometrical measurements are as follows: Biparietal 4.04 cm, age 18 weeks 2 days. Head circumference 15.89 cm, age 18 weeks 6 days. Abdominal circumference 13.40 cm, age 19 weeks 0 days. Femur length 2.52 cm, age 17 weeks 5 days. Sonographic estimate age: 18 weeks 4 days. Sonographic estimated date of delivery: 07/03/2022. Estimated Weight: 235 gm (+/- 34 gm). LMP percentile: 25%. heart rate: 139 beats per minute. number: 1 of 1. IMPRESSION: Single live IUP of 18 weeks 4 days gestational age. Estimated date of confinement sonographically is 07/03/2022. Dictated by: Dictated on workstation # [id number]
== END ==
LOC: RAD 09:57
PROVIDERS: ATTEND Obstetrics & Gynecology
DX: Z36.9 Encounter for antenatal screening, unspecified (principal); Z3A.18 18 weeks gestation of pregnancy
CPT/HCPCS: 76805

== ENCOUNTER 2022-06-20 12:55 | Inpatient (IN) | payer MEDICAID ==
[2022-06-20] VITALS (35 sets, daily range): BP systolic 95–142; BP diastolic 61–91
[2022-06-20] MEDS ORDERED: LIDOCAINE 1% INJ 20 ML VIAL IJ PRN (15:30)
[2022-06-20] MEDS ORDERED: D5 LR IV SOLUTION 1,000 ML IV SCH (15:30)
[2022-06-20] MEDS ORDERED: MINERAL OIL 30 ML UDC TOP PRN (15:30)
[2022-06-20] MEDS ORDERED: D5 LR IV SOLUTION 1,000 ML IV ONE (15:51)
[2022-06-20 15:56] LABS: BILIRUBIN,URINE NEGATIVE (NEGATIVE); CLARITY,URINE CLEAR; COLOR,URINE YELLOW; GLUCOSE, URINE (UA) NEGATIVE (NEGATIVE); KETONES,URINE NEGATIVE (NEGATIVE); LEUKOCYTE ESTERASE ,URINE 3+ (NEGATIVE); NITRITE,URINE NEGATIVE (NEGATIVE); PROTEIN,URINE NEGATIVE (NEGATIVE)
[2022-06-20 16:14] LABS: BACTERIA,URINE MODERATE /HPF
[2022-06-20 16:21] LABS: BASOPHILS # (AUTO) 0.1 10^3/uL (0.0-0.1); BASOPHILS % (AUTO) 1 % (0-10); EOSINOPHILS # (AUTO) 0.1 10^3/uL (0.0-0.3); EOSINOPHILS % (AUTO) 0 % (0-10); HEMATOCRIT 32 % (35-52); HEMOGLOBIN 10.9 g/dL (11.5-16.0); LYMPHOCYTES # (AUTO) 2.6 10^3/uL (1.0-4.0); LYMPHOCYTES % (AUTO) 19 % (12-44); MEAN CORPUSCULAR HEMOGLOBIN 30 pg (25-34); MEAN CORPUSCULAR HGB CONC 34 g/dL (32-36); MEAN CORPUSCULAR VOLUME 87 fL (80-99); MEAN PLATELET VOLUME 12.4 fL (9.0-12.2); MONOCYTES # (AUTO) 0.7 10^3/uL (0.0-1.0); MONOCYTES % (AUTO) 5 % (0-12); NEUTROPHILS # (AUTO) 9.6 10^3/uL (1.8-7.8); NEUTROPHILS % (AUTO) 73 % (42-75); PLATELET COUNT 271 10^3/uL (130-400); WHITE BLOOD COUNT 13.2 10^3/uL (4.3-11.0)
[2022-06-20] MEDS ORDERED: OXYTOCIN PRE-MIX DRIP 500 ML IV SCH (16:30)
[2022-06-20] MEDS ORDERED: OXYTOCIN PRE-MIX DRIP 500 ML IV ONE (16:30)
[2022-06-20] MEDS ORDERED: DOXY25TA35 PO (17:29)
[2022-06-20] MEDS ORDERED: fentaNYL 2 mcg/ml BUPIVA 0.125 100 ML ONE (19:16)
--- NOTE | 2022-06-20 19:29 | History & Physical-OB ---
OB - Chief Complaint & HPI Date/Time Date of Admission: Date of Admission: Jun 20, 2022 at 15:23 Date seen by a Provider: Jun 20, 2022 Time Seen by a Provider: 19:00 Chief Complaint/History OB-Reason for Admission/Chief: Induction of Labor (Decreased movements, heart rate decelerations at term, growth restriction) Hx : 4 Hx Para: 3 Expected Date of Delivery: Jul 02, 2022 Gestational Age in Weeks: 38 Gestational Age in Days: 3 Indication for induction: other (Decreased movements, heart rate decelerations at term, growth restriction) Admission Nurse Assessment Rev: Yes History of Labs O+/-, rubella Immune, HCV Ab NR, HBsAg neg, Syphilis Ab NR, HIV Ag/Ab NR, GBS neg Other Patient presented for decreased movements Allergies and Home Medications Allergies Coded Allergies: No Known Drug Allergies (Unverified , 11/14/11) Patient Home Medication List Home Medication List Reviewed: Yes Doxylamine Succinate (Unisom Sleep Aid) 25 Mg Tablet, 25 MG PO HS, (Reported) Entered as Reported by: HTERESE JOHNSON on 06/20/22 1729 Last Action: Held Ami675/FA/Omega3/Dha/Fish Oil ( Gummies) 1 Each Tab.chew, 2 EACH PO DAILY, (Reported) Entered as Reported by: LISBET ROTIZ on 05/03/21 1438 Last Action: Held Discontinued Medications Benzocaine/Menthol (Dermoplast Pain Relieving [place]) 78 Gm Aerosol, 0 EA TP TID PRN for Hemorroids Discontinued Reason: No Longer Taking Prescribed by: AKIN LAUREANO on 05/20/21 105 Last Action: Discontinued Docusate Sodium (Docusate Sodium) 100 Mg Capsule, 100 MG PO BID Discontinued Reason: No Longer Taking Prescribed by: AKIN LAUREANO on 05/20/21 105 Last Action: Discontinued Ibuprofen (Ibu) 600 Mg Tablet, 600 MG PO Q6H Discontinued Reason: No Longer Taking Prescribed by: AKIN LAUREANO on 05/20/21 105 Last Action: Discontinued Oxycodone HCl/Acetaminophen (Oxycodone-Acetaminophen 5-325) 1 Each Tablet, 1 EACH PO Q4H PRN for PAIN-MODERATE Discontinued Reason: No Longer Taking Prescribed by: AKIN LAUREANO on 05/20/21 1450 Last Action: Discontinued Witch Sonia/Glycerin (A.e.r Pads) 40 Ea Pad, 0 EA TOP QID PRN for Hemorrhoids Discontinued Reason: No Longer Taking Prescribed by: LISBET ORTIZ on 05/03/21 167 Last Action: Discontinued OB - History Hx of Present Care: Yes Ultrasounds: Normal mid trimester US Abnormal Ultrasound Findings: growth restriction at 3.8%tile Obstetrical Complications: Growth Restriction Medical Complications: Neurological (Reports hx of undiagnosed seizure disorder. Last seizure was early in current ), Other (Tobacco us) Information Induced Hypertension: No Maternal Gestational Diabetes: No Hemorrhage: No Obstetrical History Hx : 4 Hx Para: 3 Hx # Term Pregnancies: 3 Hx # Pregnancies: 0 Hx Termination: No Hx Multiple Gestation: No Hx Ectopic : No Hx Stillbirth: No Hx Complication: No Hx Induced Hypertens: No Hx Maternal Gestational Diabet: No Hx Hemorrhage: No Delivery History Hx Dystocia: No Hx Forceps Assisted Delivery: No Hx Vacuum Extraction Assisted: No Hx Placenta Abnormality: No Hx Distress: No Hx Large For Gestational Age I: No Hx Small for Gestational Age I: Yes Hx Section: No Hx Vaginal Delivery Post C-Sec: No Hx Blood Disorders: Yes (Henoch-Schnlein purpura) Adverse Rxn to Tranfusion: No Patient Past Medical History Henoch Schoenlein Purpura Social History/Family History Smoking Cessation: Current every day smoker (1PPD) 2nd Hand Smoke Exposure: Yes Immunizations Influenza Vaccine Up-to-Date: Yes; Up-to-Date Hepatitis A: Yes Hepatitis B: Yes Tetanus Booster (TDap): Less than 5yrs OB - Admission Exam Physical Exam Vitals: Vital Signs 06/20/22 13:40 Temp 36.5 Pulse 82 Resp 16 Pulse Ox 96 O2 Delivery Room Air HEENT: EOMI Heart: Other (normal rate and peripheral perfusion) Lungs: Equal (non-labored breathing. Symmetric chest rise) Abdomen: Gravid Extremities: Normal Cervical Dilatation: 4cm Effacement: 75% Station: -2 Membranes: Intact Heart Rate: 130's Accelerations: Accelerations Present Decelerations: No Decelerations (+ variable decelerations x2 on presentation) Short Term Variability: Present Skilled Nursing Variability: Average (6-25) Ortiz Scoring Tool (Modified) Dilation (cm): 3-4cm (2) Effacement (%): 51-79% (2) Labs Laboratory Tests Test 06/20/22 13:15 06/20/22 16:10 Range/Units Urine Color YELLOW Urine Clarity CLEAR Urine pH 6.0 5-9 Urine Specific [place] 1.020 1.016-1.022 Urine Protein NEGATIVE NEGATIVE Urine Glucose (UA) NEGATIVE NEGATIVE Urine Ketones NEGATIVE NEGATIVE Urine Nitrite NEGATIVE NEGATIVE Urine Bilirubin NEGATIVE NEGATIVE Urine Urobilinogen 0.2 < = 1.0 MG/DL Urine Leukocyte Esterase 3+ H NEGATIVE Urine RBC (Auto) NEGATIVE NEGATIVE Urine RBC 2-5 H /HPF Urine WBC 5-10 H /HPF Urine Squamous Epithelial Cells 5-10 /HPF Urine Crystals NONE /LPF Urine Bacteria MODERATE H /HPF Urine Casts NONE /LPF Urine Mucus SMALL H /LPF Urine Culture Indicated YES White Blood Count 13.2 H 4.3-11.0 10^3/uL Red Blood Count 3.68 L 3.80-5.11 10^6/uL Hemoglobin 10.9 L 11.5-16.0 g/dL Hematocrit 32 L 35-52 % Mean Corpuscular Volume 87 80-99 fL Mean Corpuscular Hemoglobin 30 25-34 pg Mean Corpuscular Hemoglobin Concent 34 32-36 g/dL Red Cell Distribution Width 13.1 10.0-14.5 % Platelet Count 271 130-400 10^3/uL Mean Platelet Volume 12.4 H 9.0-12.2 fL Immature Granulocyte % (Auto) 2 % Neutrophils (%) (Auto) 73 42-75 % Lymphocytes (%) (Auto) 19 12-44 % Monocytes (%) (Auto) 5 0-12 % Eosinophils (%) (Auto) 0 0-10 % Basophils (%) (Auto) 1 0-10 % Neutrophils # (Auto) 9.6 H 1.8-7.8 10^3/uL Lymphocytes # (Auto) 2.6 1.0-4.0 10^3/uL Monocytes # (Auto) 0.7 0.0-1.0 10^3/uL Eosinophils # (Auto) 0.1 0.0-0.3 10^3/uL Basophils # (Auto) 0.1 0.0-0.1 10^3/uL Immature Granulocyte # (Auto) 0.2 H 0.0-0.1 10^3/uL OB - Assessment/Plan/Diagnosis Assessment Assessment: induction of labor Admission Dx Intrauterine at 38w2d Growth Restriction heart rate decelerations Decreased Movements Induction of Labor Admission Status: Inpatient Order (span 2 midnights) Reason for Inpatient Admission: Induction of labor secondary to growth restriction, heart rate decelerations at term gestation, decreased movements at term gestation Plan Plan: Induction Induction Method: per Pitocin Protocol Problems: (1) Decreased movement Qualifiers: Qualified Codes: O36.8130 - Decreased movements, third trimester, not applicable or unspecified (2) affected by growth restriction (3) heart rate decelerations affecting management of mother (4) Term (5) Encounter for induction of labor MARILEE LOUIS MD Jun 20, 2022 19:29
[2022-06-20] MEDS ORDERED: fentaNYL INJ 100 MCG/2 ML AMP ONE (20:17)
[2022-06-20] MEDS ORDERED: BUPIVACAINE 0.25% 30 ML (SENSORCAINE) VIAL ONE (20:17)
[2022-06-20] MEDS ORDERED: diphenhydrAMINE 50 MG/ML INJ (BENADRYL) IV PRN (20:30)
[2022-06-20] MEDS ORDERED: NALOXONE 0.4 MG/ML 1 ML (NARCAN) VIAL IV PRN (20:30)
[2022-06-20] MEDS ORDERED: LACTATED RINGERS 1,000 ML IV SCH (20:30)
[2022-06-20] MEDS ORDERED: fentaNYL 2 mcg/ml BUPIVA 0.125 100 ML EPI SCH (20:30)
[2022-06-20] MEDS ORDERED: ONDANSETRON 4 MG/2 ML (SDV) Z0FRAN IV PRN (20:30)
--- NOTE | 2022-06-20 21:25 | Labor Progress Note ---
Labor Progress Note Labor Progress Note Time Seen by Provider: 21:22 Subjective: Pt denies complaints. Objective: (Can we insert 24 hour vitals here?) Cervical exam: 3-4 Consistency: 70 Position: midplane Presentation: cephalic (BSUS) heart tones: 135 beats per minute, moderate variability, + reactive Tocometer: 3 ctx/10 minutes Assessment/Plan: Franny Jain is a (21 /Para 4 / 3,Gestational Age (wks)38 here for induction of labor. CEFM/TOCO AROM performed with moderate fluid noted, lightly blood tinged Continue pitocin Anesthesia: s/p epidural Anticipate vaginal delivery. Vitals - Labs Vital Signs - I&O Vital Signs Date Time Temp Pulse Resp B/P (MAP) Pulse Ox O2 Delivery O2 Flow Rate FiO2 06/20/22 19:23 36.8 93 18 114/69 (84) Room Air 06/20/22 19:15 85 18 110/68 (82) Room Air 06/20/22 19:00 77 18 113/65 (81) Room Air 06/20/22 18:45 84 18 111/73 (86) Room Air 06/20/22 18:30 75 18 109/74 (86) Room Air 06/20/22 18:15 77 18 111/75 (87) Room Air 06/20/22 18:00 87 18 112/63 (79) Room Air 06/20/22 17:45 36.9 77 16 112/73 (86) Room Air 06/20/22 17:30 Room Air 06/20/22 17:00 Room Air 06/20/22 16:30 81 16 110/69 (83) Room Air 06/20/22 13:40 36.5 82 16 96 Room Air Labs Laboratory Tests 06/20/22 13:15: Urine Color YELLOW, Urine Clarity CLEAR, Urine pH 6.0, Urine Specific [place] 1.020, Urine Protein NEGATIVE, Urine Glucose (UA) NEGATIVE, Urine Ketones NEGATIVE, Urine Nitrite NEGATIVE, Urine Bilirubin NEGATIVE, Urine Urobilinogen 0.2, Urine Leukocyte Esterase 3+H, Urine RBC (Auto) NEGATIVE, Urine RBC 2-5H, Urine WBC 5-10H, Urine Squamous Epithelial Cells 5-10, Urine Crystals NONE, Urine Bacteria MODERATEH, Urine Casts NONE, Urine Mucus SMALLH, Urine Culture Indicated YES 06/20/22 16:10: White Blood Count 13.2H, Red Blood Count 3.68L, Hemoglobin 10.9L, Hematocrit 32L , Mean Corpuscular Volume 87, Mean Corpuscular Hemoglobin 30, Mean Corpuscular Hemoglobin Concent 34, Red Cell Distribution Width 13.1, Platelet Count 271, Mean Platelet Volume 12.4H, Immature Granulocyte % (Auto) 2, Neutrophils (%) (Auto) 73, Lymphocytes (%) (Auto) 19, Monocytes (%) (Auto) 5, Eosinophils (%) (Auto) 0, Basophils (%) (Auto) 1, Neutrophils # (Auto) 9.6H, Lymphocytes # (Auto) 2.6, Monocytes # (Auto) 0.7, Eosinophils # (Auto) 0.1, Basophils # (Auto) 0.1, Immature Granulocyte # (Auto) 0.2H MARILEE LOUIS MD Jun 20, 2022 21:25
[2022-06-20] MEDS ORDERED: CATHETER FLUSH 10 ML SYR IV SCH (22:00)
[2022-06-21] VITALS (9 sets, daily range): BP systolic 97–127; BP diastolic 53–87
--- NOTE | 2022-06-21 00:07 | OB Labor & Delivery Record ---
Vag Delivery Note Vag Delivery Note Date of Delivery: 06/20/22 Preoperative Diagnosis: Franny Jain is a 21 yo /Para 4 / 3, Gestational Age (wks)38 growth restriction heart rate decelerations at term Decreased movements at term gestation Postoperative Diagnosis: Same Surgeon: MARILEE LOUIS MD Anesthesia: Epidural Delivery Type: Induced/Spontaneous Vaginal delivery Findings: Living male infant, apgars 9 and 9 at 1 and 5 minutes respectively, weight 6 pounds 1 ounce Lacerations: none Intact placenta with 3 vessel cord. No nuchal cord, body cord or shoulder dystocia Estimated Blood Loss: 250 ml Complications: None Condition: Stable Description of Procedure: The patient is a 21 year old female who presented for decreased movements. heart tracing was noted for decelerations on presentation. She was therefore admitted for induction of labor, and informed consent was obtained. Pitocin was used for induction of labor. She received an epidural, and artificial rupture of membranes was performed with lightly blood-tinged fluid noted. Her labor course was otherwise unremarkable. She progressed to complete dilatation and was then set up for delivery. She began to push. The infant's head was delivered atraumatically in the JACK position. The shoulders and remainder of the infant's body were then delivered without difficulty. was vigorous with good cry on delivery. Cord clamping was delayed for 30 seconds. The cord was doubly clamped and cut and the was handed off to the pediatric staff. An intact placenta with 3-vessel cord delivered, with adequate fundal massage, and IV oxytocin infusion. Examination of the vagina and perineum revealed no laceration. All sponge and instrument counts were correct. Mom and baby were both in stable condition in the labor suite. Vitals - Labs Vital Signs - I&O Vital Signs Date Time Temp Pulse Resp B/P (MAP) Pulse Ox O2 Delivery O2 Flow Rate FiO2 06/20/22 19:23 36.8 93 18 114/69 (84) Room Air 06/20/22 19:15 85 18 110/68 (82) Room Air 06/20/22 19:00 77 18 113/65 (81) Room Air 06/20/22 18:45 84 18 111/73 (86) Room Air 06/20/22 18:30 75 18 109/74 (86) Room Air 06/20/22 18:15 77 18 111/75 (87) Room Air 06/20/22 18:00 87 18 112/63 (79) Room Air 06/20/22 17:45 36.9 77 16 112/73 (86) Room Air 06/20/22 17:30 Room Air 06/20/22 17:00 Room Air 06/20/22 16:30 81 16 110/69 (83) Room Air 06/20/22 13:40 36.5 82 16 96 Room Air Labs Laboratory Tests 06/20/22 13:15: Urine Color YELLOW, Urine Clarity CLEAR, Urine pH 6.0, Urine Specific [place] 1.020, Urine Protein NEGATIVE, Urine Glucose (UA) NEGATIVE, Urine Ketones NEGATIVE, Urine Nitrite NEGATIVE, Urine Bilirubin NEGATIVE, Urine Urobilinogen 0.2, Urine Leukocyte Esterase 3+H, Urine RBC (Auto) NEGATIVE, Urine RBC 2-5H, U rine WBC 5-10H, Urine Squamous Epithelial Cells 5-10, Urine Crystals NONE, Urine Bacteria MODERATEH, Urine Casts NONE, Urine Mucus SMALLH, Urine Culture Indicated YES 06/20/22 16:10: White Blood Count 13.2H, Red Blood Count 3.68L, Hemoglobin 10.9L, Hematocrit 32L , Mean Corpuscular Volume 87, Mean Corpuscular Hemoglobin 30, Mean Corpuscular Hemoglobin Concent 34, Red Cell Distribution Width 13.1, Platelet Count 271, Mean Platelet Volume 12.4H, Immature Granulocyte % (Auto) 2, Neutrophils (%) (Auto) 73, Lymphocytes (%) (Auto) 19, Monocytes (%) (Auto) 5, Eosinophils (%) (Auto) 0, Basophils (%) (Auto) 1, Neutrophils # (Auto) 9.6H, Lymphocytes # (Auto) 2.6, Monocytes # (Auto) 0.7, Eosinophils # (Auto) 0.1, Basophils # (Auto) 0.1, Immature Granulocyte # (Auto) 0.2H MARILEE LOUIS MD Jun 21, 2022 00:07
[2022-06-21] MEDS ORDERED: BENZOCAINE/MENTHOL (DERMOPLAST) 56 ML CAN TP PRN (00:15)
[2022-06-21] MEDS ORDERED: OXYTOCIN PRE-MIX DRIP 500 ML IV SCH (00:15)
[2022-06-21] MEDS ORDERED: WITCH HAZEL(TUCKS) 40 EA JAR TOP PRN (00:15)
[2022-06-21] MEDS ORDERED: NALOXONE 0.4 MG/ML 1 ML (NARCAN) VIAL IV PRN (00:15)
[2022-06-21] MEDS: IBUPROFEN 600 MG (MOTRIN) TAB PO SCH ×3 (02:38→21:20)
[2022-06-21] MEDS: CATHETER FLUSH 10 ML SYR IV SCH (06:08)
--- NOTE | 2022-06-21 08:06 | Postpartum Progress Note ---
Note Note Day # 1 Subjective: Patient is without complaints. Ambulating, voiding. Tolerating a regular diet without nausea or vomiting. Normal lochia. Pain is well controlled with oral pain medications. Objective: Physical Exam: General - Alert and oriented, no apparent distress Abdomen - Soft, appropriately tender to palpation, non-distended, fundus firm at umbilicus Extremities - no edema, negative Blade's bilaterally Assessment: PPD 1 NVD Plan: Routine care. Encourage breast feeding. Encourage ambulation. Ferrous sulfate supplementation. Plan for discharge tomorrow Vitals - Labs Vital Signs - I&O Vital Signs Date Time Temp Pulse Resp B/P (MAP) Pulse Ox O2 Delivery O2 Flow Rate FiO2 06/21/22 06:07 36.6 93 18 97/53 (68) 96 Room Air 06/21/22 01:50 88 18 119/76 (90) Room Air 06/21/22 01:20 93 18 124/87 (99) Room Air 06/21/22 00:40 93 18 121/58 (79) Room Air 06/21/22 00:05 85 18 108/66 (80) Room Air 06/21/22 00:00 36.5 88 18 127/78 (94) Room Air 06/20/22 23:50 85 18 116/82 (93) Room Air 06/20/22 23:35 102 18 142/91 (108) 100 Non Rebreather 10.00 06/20/22 23:20 65 18 95/61 (72) 100 Non Rebreather 10.00 06/20/22 23:05 90 18 106/69 (81) 98 Room Air 06/20/22 22:50 85 18 107/71 (83) 97 Room Air 06/20/22 22:35 80 18 118/83 (95) 96 Room Air 06/20/22 22:20 66 18 115/76 (89) 97 Room Air 06/20/22 22:05 82 18 118/71 (87) 96 Room Air 06/20/22 21:50 78 18 119/69 (86) 96 Room Air 06/20/22 21:35 69 18 115/76 (89) 96 Room Air 06/20/22 21:15 74 18 112/74 (87) 95 Room Air 06/20/22 21:10 86 18 109/75 (86) 96 Room Air 06/20/22 21:05 74 18 112/73 (86) 96 Room Air 06/20/22 21:00 71 18 121/88 (99) 96 Room Air 06/20/22 20:55 75 18 112/65 (81) 94 Room Air 06/20/22 20:44 95 18 122/66 (84) 95 Room Air 06/20/22 20:37 81 18 110/69 (83) 97 Room Air 06/20/22 20:34 36.9 75 18 108/70 (83) 96 Room Air 06/20/22 20:31 85 18 120/70 (87) 98 Room Air 06/20/22 20:28 80 18 107/64 (78) 98 Room Air 06/20/22 20:25 80 18 112/64 (80) 98 Room Air 06/20/22 20:22 75 18 114/65 (81) 97 Room Air 06/20/22 20:15 82 18 116/66 (83) 96 Room Air 06/20/22 19:56 90 18 118/84 (95) Room Air 06/20/22 19:40 85 18 113/70 (84) Room Air 06/20/22 19:23 36.8 93 18 114/69 (84) Room Air 06/20/22 19:15 85 18 110/68 (82) Room Air 06/20/22 19:00 77 18 113/65 (81) Room Air 06/20/22 18:45 84 18 111/73 (86) Room Air 06/20/22 18:30 75 18 109/74 (86) Room Air 06/20/22 18:15 77 18 111/75 (87) Room Air 06/20/22 18:00 87 18 112/63 (79) Room Air 06/20/22 17:45 36.9 77 16 112/73 (86) Room Air 06/20/22 17:30 Room Air 06/20/22 17:00 Room Air 06/20/22 16:30 81 16 110/69 (83) Room Air 06/20/22 13:40 36.5 82 16 96 Room Air l I & O 06/21/22 06:59 Intake Total 500 ml Balance 500 ml Labs Laboratory Tests 06/20/22 13:15: Urine Color YELLOW, Urine Clarity CLEAR, Urine pH 6.0, Urine Specific [place] 1.020, Urine Protein NEGATIVE, Urine Glucose (UA) NEGATIVE, Urine Ketones NEGATIVE, Urine Nitrite NEGATIVE, Urine Bilirubin NEGATIVE, Urine Urobilinogen 0.2, Urine Leukocyte Esterase 3+H, Urine RBC (Auto) NEGATIVE, Urine RBC 2-5H, Urine WBC 5-10H, Urine Squamous Epithelial Cells 5-10, Urine Crystals NONE, Urine Bacteria MODERATEH, Urine Casts NONE, Urine Mucus SMALLH, Urine Culture Indicated YES 06/20/22 16:10: White Blood Count 13.2H, Red Blood Count 3.68L, Hemoglobin 10.9L, Hematocrit 32L , Mean Corpuscular Volume 87, Mean Corpuscular Hemoglobin 30, Mean Corpuscular Hemoglobin Concent 34, Red Cell Distribution Width 13.1, Platelet Count 271, Mean Platelet Volume 12.4H, Immature Granulocyte % (Auto) 2, Neutrophils (%) (Auto) 73, Lymphocytes (%) (Auto) 19, Monocytes (%) (Auto) 5, Eosinophils (%) (Auto) 0, Basophils (%) (Auto) 1, Neutrophils # (Auto) 9.6H, Lymphocytes # (Auto) 2.6, Monocytes # (Auto) 0.7, Eosinophils # (Auto) 0.1, Basophils # (Auto) 0.1, Immature Granulocyte # (Auto) 0.2H ROBIN ALFREDO DO Jun 21, 2022 08:06
[2022-06-21 08:36] LABS: BASOPHILS # (AUTO) 0.1 10^3/uL (0.0-0.1); BASOPHILS % (AUTO) 1 % (0-10); EOSINOPHILS # (AUTO) 0.1 10^3/uL (0.0-0.3); EOSINOPHILS % (AUTO) 1 % (0-10); HEMATOCRIT 29 % (35-52); HEMOGLOBIN 9.7 g/dL (11.5-16.0); LYMPHOCYTES # (AUTO) 3.6 10^3/uL (1.0-4.0); LYMPHOCYTES % (AUTO) 29 % (12-44); MEAN CORPUSCULAR HEMOGLOBIN 29 pg (25-34); MEAN CORPUSCULAR HGB CONC 33 g/dL (32-36); MEAN CORPUSCULAR VOLUME 88 fL (80-99); MEAN PLATELET VOLUME 12.3 fL (9.0-12.2); MONOCYTES # (AUTO) 0.7 10^3/uL (0.0-1.0); MONOCYTES % (AUTO) 6 % (0-12); NEUTROPHILS % (AUTO) 63 % (42-75); PLATELET COUNT 251 10^3/uL (130-400); WHITE BLOOD COUNT 12.7 10^3/uL (4.3-11.0)
[2022-06-21] MEDS: DOCUSATE SODIUM 100 MG (COLACE) CAP PO SCH ×2 (08:44→21:20)
[2022-06-21] MEDS: FERROUS SULF 325 MG (IRON) TAB PO SCH (08:44)
[2022-06-21] MEDS: PRENATAL VITAMIN 1 EA TAB PO SCH (08:45)
--- NOTE | 2022-06-21 09:27 | Anesthesia-Regional Post-Op ---
Regional Patient Condition Mental Status: Alert, Oriented x3 Circulation: Same as Pre-Op Headache: Absent Sensation: Full Recovery Motor Block: Absent Post Op Complications Complications None Follow Up Care/Instructions Patient Instructions None needed. Anesthesia/Patient Condition Patient is doing well, no complaints, stable vital signs, no apparent adverse anesthesia problems. No complications reported per nursing. KELI DAVID CRNA Jun 21, 2022 09:26
[2022-06-21] MEDS: ACETAMINOPHEN 500 MG TAB (TYLENOL) PO PRN ×2 (10:20→21:45)
[2022-06-22] MEDS: ACETAMINOPHEN 500 MG TAB (TYLENOL) PO PRN ×2 (03:30→09:46)
[2022-06-22] MEDS: CATHETER FLUSH 10 ML SYR IV SCH ×2 (03:31→05:48)
[2022-06-22] MEDS: IBUPROFEN 600 MG (MOTRIN) TAB PO SCH ×2 (03:31→09:45)
[2022-06-22 03:36] VITALS: BP 115/69
[2022-06-22 08:26] VITALS: BP 122/79
[2022-06-22] MEDS: DOCUSATE SODIUM 100 MG (COLACE) CAP PO SCH (09:45)
[2022-06-22] MEDS: FERROUS SULF 325 MG (IRON) TAB PO SCH (09:45)
[2022-06-22] MEDS: PRENATAL VITAMIN 1 EA TAB PO SCH (09:45)
--- NOTE | 2022-06-22 10:52 | Discharge Inst-Women's Service ---
Discharge Inst-Women's Serv Depart Medication/Instructions New, Converted or Re-Newed RX: Transmitted to Pharmacy Problems Reviewed?: Yes Consults/Follow Up Additional Follow Up: Yes Activity Activity: Activity as Tolerated Driving Instructions: No Driving for 1 Week NO SMOKING: NO SMOKING Nothing Inside Vagina: No Douching, No [place], No Tampons Diet Discharge Diet: No Restrictions Symptoms to Report to : Bleeding Excessive, Pain Increased, Fever Over 101 Degrees F, Vaginal Bleeding Increase, Questions/Concerns For Any Problems or Questions: Contact Your Physician ROBIN ALFREDO DO Jun 22, 2022 10:52
[2022-06-22] MEDS ORDERED: DOCU100C37 PO (10:55)
[2022-06-22] MEDS ORDERED: IBUP-844 PO (10:55)
[2022-06-22] MEDS ORDERED: FERR325T24 PO (10:55)
[2022-06-22] MEDS ORDERED: BENZ78AE5 TP (10:55)
[2022-06-22] MEDS ORDERED: ACET-93 PO (10:55)
== END 2022-06-22 14:50 | disposition home or self-care (01) | DRG 807 ==
LOC: WSo 12:55 → LDRP 12:56 → WSo 15:39 → LDRP 06-21 02:20
PROVIDERS: ADMIT Obstetrics & Gynecology; ATTEND Obstetrics & Gynecology
PROC: 10E0XZZ Delivery of Products of Conception, External Approach (ICD-10-PCS; principal; 2022-06-21)
PROC: 10907ZC Drainage of Amniotic Fluid, Therapeutic from Products of Conception, Via Natural or Artificial Opening (ICD-10-PCS; 2022-06-21)
DX: O36.5930 Maternal care for other known or suspected poor fetal growth, third trimester, not applicable or unspecified (principal); Z37.0 Single live birth; Z3A.38 38 weeks gestation of pregnancy; O76 Abnormality in fetal heart rate and rhythm complicating labor and delivery; O36.8130 Decreased fetal movements, third trimester, not applicable or unspecified; O99.334 Smoking (tobacco) complicating childbirth; F17.210 Nicotine dependence, cigarettes, uncomplicated
CPT/HCPCS: 36415; 81000; 85025; 86780; 86850; 86900; 86901; 87088; 99212

== ENCOUNTER 2023-02-27 20:03 | Emergency (ER) | payer MEDICAID ==
[~2023-02-27] VITALS: Ht 152 cm; Wt 54.4 kg
[~2023-02-27 20:03] MED LIST changes: +ACET-93 PO; +DOXY25TA35 PO; +FERR325T24 PO
[2023-02-27 20:15] VITALS: BP 135/87
--- NOTE | 2023-02-27 20:24 | ED GU-Female ---
General Stated Complaint: + /BLEEDING Source: patient Exam Limitations: no limitations History of Present Illness Date Seen by Provider: Feb 27, 2023 Time Seen by Provider: 20:22 Initial Comments Patient is a 22-year-old female presents ED with vaginal bleeding. She states her last menstrual cycle was January 24. She had a positive test 2 days ago at home. She reports suprapubic vaginal pain described as sharp and intermittent. Initially had bleeding 2 days ago described as light. She had some episodes of heavier bleeding. She is going through 4-5 pads a day. She is G5, P4. Denies of any vomiting, diarrhea, vaginal discharge, chest pain, shortness of breath. Not currently on prenatals. She does report frequent urination without pain. Not concern for sexual transmitted infection. Patient denies nausea, vomiting, diarrhea, fever, chills, body aches. Allergies and Home Medications Allergies Coded Allergies: No Known Drug Allergies (Unverified , 11/14/11) Patient Home Medication List Home Medication List Reviewed: Yes Acetaminophen (Acetaminophen) 500 Mg Tablet, 1,000 MG PO Q6H PRN for PAIN-MILD (1-4) Prescribed by: ROBIN ALFREDO on 06/22/22 1055 Benzocaine/Menthol (Dermoplast Pain Relieving [place]) 20 %-0.5 % Aerosol, 56 EA TP UD PRN for PAIN- SEE INSTRUCTIONS Prescribed by: ROBIN ALFREDO on 06/22/22 1055 Docusate Sodium (Docusate Sodium) 100 Mg Capsule, 100 MG PO BID PRN for CONSTIPATION-1ST LINE Prescribed by: ROBIN ALFREDO on 06/22/22 1055 Doxylamine Succinate (Unisom Sleep Aid) 25 Mg Tablet, 25 MG PO HS, (Reported) Entered as Reported by: THERESE JOHNSON on 06/20/22 1729 Ferrous Sulfate (Ferosul) 325 Mg (65 Mg Iron) Tablet, 325 MG PO DAILY Prescribed by: ROBIN ALFREDO on 06/22/22 1055 Ibuprofen (Ibu) 600 Mg Tablet, 600 MG PO Q6H Prescribed by: ROBIN ALFREDO on 06/22/22 1055 Rem212/FA/Omega3/Dha/Fish Oil ( Gummies) 1 Each Tab.chew, 2 EACH PO DAILY, (Reported) Entered as Reported by: LISBET ORTIZ on 05/03/21 1438 Review of Systems Review of Systems Constitutional: No chills, No diaphoresis EENTM: No ear pain, No blurred vision, No double vision Respiratory: No cough, No dyspnea on exertion Cardiovascular: No chest pain, No edema Gastrointestinal: abdominal pain; No diarrhea, No nausea, No vomiting Genitourinary: denies burning, denies discharge, denies dysuria; frequency Musculoskeletal: No back pain, No joint pain Skin: No change in hair/nails All Other Systemes Reviewed Negative Unless Noted: Yes Past Rfcevfz-Afpldr-Vezedz Hx Immunizations Up To Date Tetanus Booster (TDap): Less than 5yrs PED Vaccines UTD: No Seasonal Allergies Seasonal Allergies: No Past Medical History Surgery/Hospitalization HX: none Surgeries: No Respiratory: No Cardiac: Yes (HSP) Neurological: No Reproductive Disorders: No Sexually Transmitted Disease: Yes (herpes) HIV/AIDS: No Genitourinary: No Gastrointestinal: No Musculoskeletal: No Endocrine: No HEENT: No Cancer: No Psychosocial: Yes Anxiety, Bipolar, Depression Integumentary: No Blood Disorders: No Adverse Reaction/Blood Tranf: No Family Medical History Asthma 19 MOTHER Cervical cancer 19 MOTHER Congenital heart disease G8 SISTER Diabetes mellitus G8 BROTHER Seizure disorder 19 MOTHER Physical Exam Vital Signs Vital Signs - First Documented 02/27/23 20:15 Temp 37.8 Pulse 93 Resp 16 B/P (MAP) 135/87 (103) Capillary Refill : Height, Weight, BMI Height: 5'0.00" Weight: 129lbs. 0.8oz. 58.138551cn; 28.15 BMI Method:Stated General Appearance: WD/WN, no apparent distress HEENT: PERRL/EOMI, normal ENT inspection, TMs normal Neck: non-tender, full range of motion, supple, normal inspection Cardiovascular: regular rate, rhythm, no edema, no gallop, no JVD Respiratory: chest non-tender, lungs clear, normal breath sounds, no respiratory distress, no accessory muscle use Gastrointestinal: normal bowel sounds, soft, no organomegaly, tenderness (Suprapubic tenderness on palpation) Back: normal inspection, no CVA tenderness Extremities: normal range of motion, non-tender, normal inspection, no pedal edema Neurologic/Psychiatric: occupational therapy assist II-XII nml as tested, no motor/sensory deficits, alert, normal mood/affect Skin: normal color, warm/dry Progress/Results/Core Measures Suspected Sepsis SIRS Temperature: Pulse: Respiratory Rate: Laboratory Tests 02/27/23 20:25: White Blood Count 12.6H Blood Pressure / Mean: Laboratory Tests 02/27/23 20:25: Creatinine 0.80, Platelet Count 230, Total Bilirubin 0.3 Results/Orders Lab Results Laboratory Tests Test 02/27/23 20:25 02/27/23 20:30 02/27/23 20:55 Range/Units White Blood Count 12.6 H 4.3-11.0 10^3/uL Red Blood Count 4.58 3.80-5.11 10^6/uL Hemoglobin 12.5 11.5-16.0 g/dL Hematocrit 39 35-52 % Mean Corpuscular Volume 85 80-99 fL Mean Corpuscular Hemoglobin 27 25-34 pg Mean Corpuscular Hemoglobin Concent 32 32-36 g/dL Red Cell Distribution Width 15.9 H 10.0-14.5 % Platelet Count 230 130-400 10^3/uL Mean Platelet Volume 11.6 9.0-12.2 fL Immature Granulocyte % (Auto) 1 % Neutrophils (%) (Auto) 63 42-75 % Lymphocytes (%) (Auto) 29 12-44 % Monocytes (%) (Auto) 5 0-12 % Eosinophils (%) (Auto) 1 0-10 % Basophils (%) (Auto) 1 0-10 % Neutrophils # (Auto) 8.0 H 1.8-7.8 10^3/uL Lymphocytes # (Auto) 3.7 1.0-4.0 10^3/uL Monocytes # (Auto) 0.6 0.0-1.0 10^3/uL Eosinophils # (Auto) 0.1 0.0-0.3 10^3/uL Basophils # (Auto) 0.1 0.0-0.1 10^3/uL Immature Granulocyte # (Auto) 0.1 0.0-0.1 10^3/uL Sodium Level 137 135-145 MMOL/L Potassium Level 3.9 3.6-5.0 MMOL/L Chloride Level 107 98-107 MMOL/L Carbon Dioxide Level 20 L 21-32 MMOL/L Anion Gap 10 5-14 MMOL/L Blood Urea Nitrogen 13 7-18 MG/DL Creatinine 0.80 0.60-1.30 MG/DL Estimat Glomerular Filtration Rate 105 BUN/Creatinine Ratio 16 Glucose Level 101 70-105 MG/DL Calcium Level 9.3 8.5-10.1 MG/DL Corrected Calcium 9.0 8.5-10.1 MG/DL Total Bilirubin 0.3 0.1-1.0 MG/DL Aspartate Amino Transf (AST/SGOT) 12 5-34 U/L Alanine Aminotransferase (ALT/SGPT) 9 0-55 U/L Alkaline Phosphatase 77 40-136 U/L Total Protein 7.1 6.4-8.2 GM/DL Albumin 4.4 3.2-4.5 GM/DL Human Chorionic Gonadotropin, Quant 185 H <5 MIU/ML Smear Scan YES Urine Color YELLOW Urine Clarity CLEAR Urine pH 5.5 5-9 Urine Specific [facility] 1.020 1.016-1.022 Urine Protein NEGATIVE NEGATIVE Urine Glucose (UA) NEGATIVE NEGATIVE Urine Ketones NEGATIVE NEGATIVE Urine Nitrite NEGATIVE NEGATIVE Urine Bilirubin NEGATIVE NEGATIVE Urine Urobilinogen 0.2 < = 1.0 MG/DL Urine Leukocyte Esterase NEGATIVE NEGATIVE Urine RBC (Auto) 2+ H NEGATIVE Urine RBC 0-2 /HPF Urine WBC NONE /HPF Urine Squamous Epithelial Cells 5-10 /HPF Urine Crystals NONE /LPF Urine Bacteria TRACE /HPF Urine Casts NONE /LPF Urine Mucus NEGATIVE /LPF Urine Culture Indicated NO Urine Test POSITIVE NEGATIVE Micro Results Microbiology 02/27/23 Wet Prep - Final, Complete My Orders Orders - MARY JO SILVER Ua Culture If Indicated (02/27/23 20:15) Hcg,Qualitative Urine (02/27/23 20:15) Cbc With Automated Diff (02/27/23 20:19) Comprehensive Metabolic Panel (02/27/23 20:19) Wet Prep (02/27/23 20:19) Hcg,Quantitative (02/27/23 20:19) Neisseria Gonorrhea Swab (02/27/23 20:24) Chlamydia Trachomatis Swab (02/27/23 20:24) Vital Signs/I&O Capillary Refill : Departure Communication (PCP) Patient presents to the ED for vaginal bleeding. Differential diagnosis, threatened miscarriage, ectopic , UTI. positive test at home 2 days ago. Spotting started 2 days ago with heavier bleeding. Going through 4-5 pads. G5, P4. Vaginal pain and discomfort. She does have suprapubic tenderness. Patient Is not appear toxic or septic. Not currently taking prenatals. Vital signs stable. Refused pelvic exam. She does have some suprapubic tenderness. Agreed to self swab. STD cultures were ordered chlamydi a and gonorrhea. She was not treated prophylactically. Wet mount did show very small amount of clue cells. Denies of any specific vaginal discharge. Negative for yeast or trichomonas. Urinalysis positive with red blood cells without strong evidence of infection. Positive . CBC, CMP grossly unremarkable. Slight elevated white blood count 12 likely reactive. No right lower quadrant or right upper quadrant tenderness. She does not appear in acute distress. Normal liver enzymes. She is not hypertensive. Normal blood sugar. Refuse anything for pain. Beta quant level returned at 185. Rh+. She does not require RhoGAM. Due to low beta quant level patient does not meet criteria for ultrasound during the evening. Rule out ectopic ultrasound was ordered for tomorrow morning. She is scheduled to follow-up at registration at 8 AM. Since she does not have any current provider or [facility] results will be called to the ED. Recommend recheck of her beta quant level in 2 to 3 days. If any worsening symptoms such as fever, severe abdominal pain to return back to ED Impression Primary Impression: Vaginal bleeding affecting early Disposition: 01 HOME, SELF-CARE Condition: Stable Departure-Patient Inst. Decision time for Depature: 21:30 Referrals: JULIA LANE MD NO,LOCAL PHYSICIAN (PCP) Primary Care Physician Patient Instructions: Bleeding In Early Add. Discharge Instructions: Recommend following up at registration here at 8 AM for ultrasound 8:30 AM. Recommend following up with [facility] health [facility] provided in discharge inst ructions. MARY JO SILVER Feb 27, 2023 20:24
[2023-02-27 20:34] LABS: BASOPHILS # (AUTO) 0.1 10^3/uL (0.0-0.1); BASOPHILS % (AUTO) 1 % (0-10); EOSINOPHILS # (AUTO) 0.1 10^3/uL (0.0-0.3); EOSINOPHILS % (AUTO) 1 % (0-10); HEMATOCRIT 39 % (35-52); HEMOGLOBIN 12.5 g/dL (11.5-16.0); LYMPHOCYTES # (AUTO) 3.7 10^3/uL (1.0-4.0); LYMPHOCYTES % (AUTO) 29 % (12-44); MEAN CORPUSCULAR HEMOGLOBIN 27 pg (25-34); MEAN CORPUSCULAR HGB CONC 32 g/dL (32-36); MEAN CORPUSCULAR VOLUME 85 fL (80-99); MEAN PLATELET VOLUME 11.6 fL (9.0-12.2); MONOCYTES # (AUTO) 0.6 10^3/uL (0.0-1.0); MONOCYTES % (AUTO) 5 % (0-12); NEUTROPHILS % (AUTO) 63 % (42-75); PLATELET COUNT 230 10^3/uL (130-400); WHITE BLOOD COUNT 12.6 10^3/uL (4.3-11.0)
[2023-02-27 20:39] LABS: CLARITY,URINE CLEAR; COLOR,URINE YELLOW; GLUCOSE, URINE (UA) NEGATIVE (NEGATIVE); PH,URINE 5.5 (5-9); PROTEIN,URINE NEGATIVE (NEGATIVE)
[2023-02-27 20:40] LABS: BILIRUBIN,URINE NEGATIVE (NEGATIVE); KETONES,URINE NEGATIVE (NEGATIVE); LEUKOCYTE ESTERASE ,URINE NEGATIVE (NEGATIVE); NITRITE,URINE NEGATIVE (NEGATIVE)
[2023-02-27 20:44] LABS: SMEAR SCAN COMMENT YES
[2023-02-27 20:49] LABS: BACTERIA,URINE TRACE /HPF; RBC,URINE 0-2 /HPF
[2023-02-27 20:56] LABS: ALBUMIN 4.4 GM/DL (3.2-4.5); BILIRUBIN,TOTAL 0.3 MG/DL (0.1-1.0); CALCIUM 9.3 MG/DL (8.5-10.1); CREATININE SERUM 0.8 MG/DL (0.60-1.30); POTASSIUM 3.9 MMOL/L (3.6-5.0); TOTAL PROTEIN 7.1 GM/DL (6.4-8.2)
== END 2023-02-27 21:35 | disposition home or self-care (01) ==
LOC: EDUNIT# 20:03 → ER 20:06
DX: O20.9 Hemorrhage in early pregnancy, unspecified (principal); Z3A.01 Less than 8 weeks gestation of pregnancy
CPT/HCPCS: 36415; 80053; 81000; 84702; 84703; 85025; 87210; 87491; 87591

== ENCOUNTER → 2023-02-28 | Outpatient (CLI) | payer MEDICAID ==
--- NOTE | 2023-02-28 10:39 | Diagnostic Imaging Report ---
HISTORY: , vaginal bleeding. COMPARISON: None. TECHNIQUE: Transabdominal and transvaginal ultrasound of the gravid uterus. FINDINGS: The endometrium is mildly thickened with hypoechoic, mildly heterogeneous fluid seen in the endometrium. No uterine masses are seen. No intrauterine pole or yolk sac is shown. There is a small amount of free fluid in the pelvis. Within this free fluid in the cul-de-sac, there is a small echogenic structure which measures 8 mm in length. This would correspond with 6 weeks and 6 days if this represents a pole. No heart motion is detected. There does appear to be an adjacent yolk sac. No surrounding gestational sac is seen. The right ovary measures 4.1 x 1.8 x 2.7 cm and the left measures 3.0 x 1.7 x 2.0 cm. There are multiple follicles in the ovaries bilaterally. There is normal blood flow. IMPRESSION: 1. Free fluid in the pelvis containing small structures concerning for a peritoneal ectopic pole and yolk sac; however, this is not confirmed with cardiac activity. 2. Small amount of fluid and heterogeneity in the endometrium. This could represent blood products with a very early gestational sac thought less likely but not excluded. 3. Normal-appearing ovaries bilaterally. 4. Findings were discussed with Dr. Aguillon by Dr. Wang, on 02/28/2023 at 10:10 AM. Dictated by: Dictated on workstation # [id number]
== END ==
LOC: RAD 07:52
PROVIDERS: ATTEND Physician Assistant
DX: O46.90 Antepartum hemorrhage, unspecified, unspecified trimester (principal); Z3A.00 Weeks of gestation of pregnancy not specified
CPT/HCPCS: 76801; 76817

== ENCOUNTER → 2023-03-01 | Outpatient (CLI) | payer MEDICAID | LOC: LAB 20:21 | PROVIDERS: ATTEND Family Medicine | DX: O20.9 Hemorrhage in early pregnancy, unspecified (principal); Z3A.00 Weeks of gestation of pregnancy not specified | CPT/HCPCS: 36415; 84144; 84702 ==

== ENCOUNTER → 2023-03-07 | Outpatient (CLI) | payer MEDICAID ==
--- NOTE | 2023-03-07 11:37 | Diagnostic Imaging Report ---
History: Vaginal bleeding, early COMPARISON: 02/28/2023 TECHNIQUE: Transabdominal and transvaginal ultrasound the gravid uterus FINDINGS: The uterus measures 8.9 x 4.8 x 6.1 cm in size. No intrauterine gestation is seen. The endometrium measures 5 mm. No significant endometrial fluid is appreciated. There is no blood flow within the endometrium. The right ovary measures 3.1 x 2.1 x 2.4 cm and the left measures 3.5 x 1.6 x 2.5 cm. There are follicles in the ovaries bilaterally. There is a dominant left ovarian follicle measuring up to 1.3 cm, which appears to be a hemorrhagic cyst, with internal debris. There is blood flow in the ovaries bilaterally. There is a small amount of free fluid in the pelvis. Free fluid appears mildly decreased compared to the prior study. IMPRESSION: 1. No intrauterine gestation seen at this time. 2. Small amount of free fluid, decreased since the prior study. Previous findings concerning for ectopic are not seen on today's exam. There is a small left ovarian hemorrhagic cyst, but no definite ectopic is confirmed. Recommend continued follow-up of beta hCG. Dictated by: Dictated on workstation # [id number]
== END ==
LOC: RAD 09:39
PROVIDERS: ATTEND Obstetrics & Gynecology
DX: O34.80 Maternal care for other abnormalities of pelvic organs, unspecified trimester (principal); N83.202 Unspecified ovarian cyst, left side; O20.9 Hemorrhage in early pregnancy, unspecified; Z3A.00 Weeks of gestation of pregnancy not specified
CPT/HCPCS: 76801; 76817